=== PATIENT | female | born 1950 | race Caucasian/White ===

== ENCOUNTER → 2017-02-25 | Outpatient (CLI) | payer MEDICARE ==
[~2017-02-25] MED LIST: ALBUTEROL; CEPH500C PO; CHOL10007 PO; DICL75TA2 PO; DICLOFENAC; DULO60CA6 PO; FAMO20TA3 PO; FURO20TA4 PO; HYDR-3816 PO; LEVO112T55 PO; LEVO125T6 PO; LORA0.5T PO; MULT-1021 PO; NAPR-1033 PO; OXYC-197 PO; PANT40TA2 PO; PANT40TA3 PO; ROPI1TAB2 PO; RT-ALBUINH IH; VALS320T14 PO
--- NOTE | 2017-02-25 19:45 | Diagnostic Imaging Report ---
Bilateral screening mammogram 2D views with tomosynthesis The current study was also evaluated with a Computer Aided Detection (CAD) system. INDICATION: Screening. No current complaints stated on the questionnaire. COMPARISON: 10/14/2011. FINDINGS: The breasts are composed of heterogeneously dense parenchyma which may decrease mammographic sensitivity. No mass, architectural distortion, or suspicious cluster of calcifications. Allowing for technique and positional differences, no suspicious change is seen. IMPRESSION: No significant change. ACR BI-RADS Category 2: Benign findings. Result letter will be mailed to the patient. Note: At least 10% of breast cancer is not imaged by mammography. Dictated by: Dictated on workstation # [id number]
== END ==
LOC: RAD 09:47
PROVIDERS: ATTEND Nurse Practitioner Family
DX: Z12.31 Encounter for screening mammogram for malignant neoplasm of breast (principal)
CPT/HCPCS: 77067

== ENCOUNTER → 2018-04-16 | Outpatient (CLI) | payer MEDICARE ==
[~2018-04-16] MED LIST changes: +HYDR-34 PO; -HYDR-3816 PO; -OXYC-197 PO; +OXYC1TAB87 PO; -VALS320T14 PO; +VALS320T15 PO
--- NOTE | 2018-04-16 13:33 | Diagnostic Imaging Report ---
Exam: Ultrasound abdomen limited. Date: April 16, 2018. Indication: 68-year-old female, abdominal wall mass. Comparison: None. Findings: Targeted ultrasound was performed in the area of focal patient concern. There is no sonographically demonstrated mass or fluid collection. There is no convincing evidence of hernia. Impression: 1. No sonographically demonstrated mass or fluid collection. 2. No convincing evidence of a definite hernia. 3. If there is persistent concern for a truly clinically palpable mass, CT abdomen and pelvis with and without contrast would be recommended for further assessment. Dictated by: Dictated on workstation # [id number]
== END ==
LOC: RAD 10:05
PROVIDERS: ATTEND Internal Medicine
DX: R22.2 Localized swelling, mass and lump, trunk (principal)
CPT/HCPCS: 76705

== ENCOUNTER → 2020-03-14 | Outpatient (CLI) | payer MEDICARE ==
[~2020-03-14] MED LIST changes: -PANT40TA3 PO; +PANT40TA52 PO; +ROPI1TAB PO; -ROPI1TAB2 PO
--- NOTE | 2020-03-14 12:57 | Diagnostic Imaging Report ---
INDICATION: Routine screening. COMPARISON: 02/25/2017 and 10/14/2011. TECHNIQUE: 2D and 3D bilateral screening mammography was performed with CAD. FINDINGS: Both breasts are heterogeneously dense, limiting the sensitivity of mammography. The parenchymal pattern is stable. No dominant mass or malignant appearing microcalcifications are seen. There are benign calcifications lesions bilaterally. The axillae are unremarkable. IMPRESSION: No mammographic features suspicious for malignancy are identified. ACR BI-RADS Category 2: Benign findings. Result letter will be mailed to the patient. Note: At least 10% of breast cancer is not imaged by mammography. Dictated by: Dictated on workstation # [id number]
== END ==
LOC: RAD 11:08
PROVIDERS: ATTEND Internal Medicine
DX: Z12.31 Encounter for screening mammogram for malignant neoplasm of breast (principal)
CPT/HCPCS: 77063; 77067

== ENCOUNTER 2021-08-19 10:30 | Inpatient (IN) | payer MEDICARE ==
[~2021-08-19] VITALS: Ht 157.5 cm; Wt 119.0 kg
[~2021-08-19 10:30] MED LIST changes: -DULO60CA6 PO; +DULO60CA7 PO
[2021-08-19] MEDS ORDERED: morphine INJ 10 MG/ML 1ML (SYR OR VIAL) IVP STA (10:39)
--- NOTE | 2021-08-19 10:43 | ED Lower Extremity ---
General Chief Complaint: Lower Extremity Stated Complaint: FALL Source: patient, EMS Exam Limitations: no limitations History of Present Illness Date Seen by Provider: Aug 19, 2021 Time Seen by Provider: 10:41 Initial Comments To ER with c/o right leg pain after a fall. She had a right total knee replacement on 08/12/[address] go at [facility] in [place]. She was released on 08/15/2021. Today while getting up to use the bathroom she was using her walker and when she turned she somehow fell, she is not sure how. She landed on the right side and complains of some right hip right thigh right knee right lower leg and right ankle pain. She did not hit her head. Her pain has been fairly well controlled until this happened. EMS gave 4 mg of morphine and 100 mcg of fentanyl and she is still screaming on arrival. Onset: just prior to arrival Severity: moderate, severe Pain/Injury Location: right leg Method of Injury: fell Modifying Factors: Worse With Movement Allergies and Home Medications Allergies Coded Allergies: Tetracyclines (Verified Allergy, Unknown, high doses cause stomach pain, 04/16/16) pregabalin (Verified Allergy, Unknown, 04/16/16) Patient Home Medication List Home Medication List Reviewed: Yes Albuterol Sulfate (Proventil Hfa) 6.7 Gm Hfa.aer.ad, 2 PUFF IH Q4H PRN for SHORTNESS OF BREATH, (Reported) Entered as Reported by: YARELIS PINTO on 04/16/16 1247 Cephalexin (Cephalexin) 500 Mg Capsule, 1 CAP PO TID Prescribed by: JOHNSNO FUNES on 05/02/16 1748 Cholecalciferol (Vitamin D3) (Vitamin D3) 1,000 Unit Capsule, 2,000 UNIT PO BALTA LY, (Reported) Entered as Reported by: YARELIS PINTO on 04/16/16 1247 Diclofenac Sodium (Diclofenac Sodium) 75 Mg Tablet., 75 MG PO BID, (Reported) Entered as Reported by: YARELIS PINTO on 04/16/16 1247 Duloxetine HCl (Cymbalta) 60 Mg Capsule.dr, 60 MG PO BID, (Reported) Entered as Reported by: MAC ZAMUDIO on 10/09/15 1130 Furosemide (Furosemide) 20 Mg Tablet, 20 MG PO DAILY, (Reported) Entered as Reported by: MAC ZAMUDIO on 10/09/15 1130 Hydrocodone Bit/Acetaminophen (Lortab 7.5 Mg Tablet) 1 Each Tablet, 1 EACH PO BID PRN for PAIN, (Reported) Entered as Reported by: YARELIS PINTO on 04/16/16 1247 Levothyroxine Sodium (Levothyroxine Sodium) 125 Mcg Tablet, 125 MCG PO DAILY, (Reported) Entered as Reported by: YARELIS PINTO on 04/16/16 1247 Lorazepam (Lorazepam) 0.5 Mg Tablet, 0.5 MG PO BID PRN for ANXIETY, (Reported) Entered as Reported by: YARELIS PINTO on 04/16/16 1247 Multivits-Min/Iron/FA/Lutein (Centrum Silver Women Tablet) 1 Each Tablet, 1 EACH PO DAILY, (Reported) Entered as Reported by: YARELIS PINTO on 04/16/16 1247 Naproxen Sodium (Naproxen Sodium) 220 Mg Tablet, 220 MG PO BID, (Reported) Entered as Reported by: YARELIS PINTO on 04/16/16 1247 Oxycodone HCl/Acetaminophen (Percocet 5-325 mg Tablet) 1 Each Tablet, 1-2 EACH PO Q6H PRN for PAIN Prescribed by: TASHI ORTEGA on 05/02/16 1900 Pantoprazole Sodium (Pantoprazole Sodium) 40 Mg Tablet.dr, 40 MG PO DAILY, (Reported) Entered as Reported by: YARELIS PINTO on 04/16/16 1247 Ropinirole HCl (Ropinirole HCl) 1 Mg Tablet, 1-2 MG PO BID, (Reported) Entered as Reported by: YARELIS PINTO on 04/16/16 1247 Valsartan (Valsartan) 320 Mg Tablet, 160 MG PO DAILY, (Reported) Entered as Reported by: MAC ZAMUDIO on 10/09/15 1130 Review of Systems Constitutional: see HPI EENTM: see HPI Respiratory: no symptoms reported Cardiovascular: no symptoms reported Genitourinary: no symptoms reported Musculoskeletal: see HPI, joint pain Skin: no symptoms reported Psychiatric/Neurological: No Symptoms Reported Past Reuvczk-Gmfwas-Zybivx Hx Seasonal Allergies Seasonal Allergies: Yes Past Medical History Appendectomy, Hysterectomy, Thyroidectomy Asthma Hypertension [employer]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 7.0oz. 121.494418au; 45.9 BMI Method: General Appearance: WD/WN, no apparent distress HEENT: PERRL/EOMI, normal ENT inspection, other (Dry mucous membranes) Neck: non-tender, full range of motion Respiratory: no respiratory distress, no accessory muscle use Gastrointestinal: normal bowel sounds, non tender Hips: left hip non-tender, left hip normal inspection, left hip normal range of motion; right hip pain, right hip soft tissue tenderness Legs: left leg non-tender, left leg normal inspection, left leg normal range of motion; right leg ecchymosis, right leg pain, right leg soft tissue tenderness, right leg swelling, right leg other (Right knee incision is covered with a dressing. There is no erythema or saturation of the dressing with blood.) Knees: right knee ecchymosis, right knee pain, right knee soft tissue tenderness, right knee swelling Ankles: bilateral ankle non-tender, bilateral ankle normal inspection, bilateral ankle normal range of motion Feet: bilateral foot non-tender, bilateral foot normal inspection, bilateral foot normal range of motion, bilateral foot other (Bilateral feet pink warm and dry) Neurologic/Tendon: normal sensation, normal motor functions Neurologic/Psychiatric: alert, normal mood/affect, oriented x 3 Skin: normal color, warm/dry Procedures/Interventions Lumen: triple Central Line Procedure: betadine prep, sterile drapes applied, sterile dressing applied Position: internal jugular (R) Anesthesia: local Volume Anesthetic (ccs): 4 Complications: none Post Position: sutured, good blood return, position confirmed w/ CXR Progress/Results/Core Measures Results/Orders Lab Results Laboratory Tests Test 08/19/21 11:05 08/19/21 12:18 08/19/21 12:27 Range/Units White Blood Count 16.1 H 4.3-11.0 10^3/uL Red Blood Count 2.92 L 3.80-5.11 10^6/uL Hemoglobin 9.1 L 11.5-16.0 g/dL Hematocrit 28 L 35-52 % Mean Corpuscular Volume 96 80-99 fL Mean Corpuscular Hemoglobin 31 25-34 pg Mean Corpuscular Hemoglobin Concent 33 32-36 g/dL Red Cell Distribution Width 12.6 10.0-14.5 % Platelet Count 533 H 130-400 10^3/uL Mean Platelet Volume 10.3 9.0-12.2 fL Immature Granulocyte % (Auto) 2 % Neutrophils (%) (Auto) 70 42-75 % Lymphocytes (%) (Auto) 14 12-44 % Monocytes (%) (Auto) 11 0-12 % Eosinophils (%) (Auto) 3 0-10 % Basophils (%) (Auto) 1 0-10 % Neutrophils # (Auto) 11.2 H 1.8-7.8 10^3/uL Lymphocytes # (Auto) 2.3 1.0-4.0 10^3/uL Monocytes # (Auto) 1.8 H 0.0-1.0 10^3/uL Eosinophils # (Auto) 0.4 H 0.0-0.3 10^3/uL Basophils # (Auto) 0.1 0.0-0.1 10^3/uL Immature Granulocyte # (Auto) 0.3 H 0.0-0.1 10^3/uL Neutrophils % (Manual) 69 % Lymphocytes % (Manual) 19 % Monocytes % (Manual) 7 % Eosinophils % (Manual) 5 % Blood Morphology Comment NORMAL Prothrombin Time 15.2 H 12.2-14.7 SEC INR Comment 1.2 0.8-1.4 Sodium Level 133 L 135-145 MMOL/L Potassium Level 4.4 3.6-5.0 MMOL/L Chloride Level 98 98-107 MMOL/L Carbon Dioxide Level 23 21-32 MMOL/L Anion Gap 12 5-14 MMOL/L Blood Urea Nitrogen 17 7-18 MG/DL Creatinine 1.07 0.60-1.30 MG/DL Estimat Glomerular Filtration Rate 56 BUN/Creatinine Ratio 16 Glucose Level 150 H 70-105 MG/DL Calcium Level 8.8 8.5-10.1 MG/DL Corrected Calcium 9.4 8.5-10.1 MG/DL Total Bilirubin 0.8 0.1-1.0 MG/DL Aspartate Amino Transf (AST/SGOT) 15 5-34 U/L Alanine Aminotransferase (ALT/SGPT) 14 0-55 U/L Alkaline Phosphatase 101 40-136 U/L Total Protein 6.0 L 6.4-8.2 GM/DL Albumin 3.2 3.2-4.5 GM/DL Procalcitonin 0.05 <0.10 NG/ML Urine Color YELLOW Urine Clarity CLEAR Urine pH 5.5 5-9 Urine Specific [place] >=1.030 1.016-1.022 Urine Protein TRACE H NEGATIVE Urine Glucose (UA) NEGATIVE NEGATIVE Urine Ketones NEGATIVE NEGATIVE Urine Nitrite POSITIVE H NEGATIVE Urine Bilirubin 1+ H NEGATIVE Urine Urobilinogen 2.0 < = 1.0 MG/DL Urine Leukocyte Esterase TRACE H NEGATIVE Urine RBC (Auto) NEGATIVE NEGATIVE Urine RBC NONE /HPF Urine WBC 5-10 H /HPF Urine Squamous Epithelial Cells 2-5 /HPF Urine Renal Epithelial Cells NONE /HPF Urine Crystals NONE /LPF Urine Bacteria LARGE H /HPF Urine Casts NONE /LPF Urine Mucus NEGATIVE /LPF Urine Culture Indicated YES Lactic Acid Level 1.42 0.50-2.00 MMOL/L My Orders Orders - ALEXANDER CRAWFORD APRN Morphine Injection (Morphine Injection (08/19/21 10:39) Cbc With Automated Diff (08/19/21 10:39) Comprehensive Metabolic Panel (08/19/21 10:39) Protime With Inr (08/19/21 10:39) Sutton Cath (08/19/21 10:39) Lactated Ringers (Lr 1000 Ml Iv Solution (08/19/21 10:45) Pelvis With Right Hip 2-3views (08/19/21 10:39) Knee, Right, 3 Views (08/19/21 10:39) Ankle, Right, 3 Views (08/19/21 10:39) Ua Culture If Indicated (08/19/21 10:53) Ketamine Syringe (Ketamine Syringe) (08/19/21 11:15) Ns Iv 1000 Ml (Sodium Chloride 0.9%) (08/19/21 11:15) Manual Differential (08/19/21 11:05) Blood Culture (08/19/21 12:17) Lactic Acid Analyzer (08/19/21 12:17) Procalcitonin (Pct) (08/19/21 12:17) Lactated Ringers (Lr 1000 Ml Iv Solution (08/19/21 12:32) Urine Culture (08/19/21 12:18) Norepinephrine 8 Mg/250 Ml (Norepinephri (08/19/21 12:47) Chest 1 View, Ap/Pa Only (08/19/21 13:06) Cefepime Injection (Maxipime Injection) (08/19/21 13:30) Ed Admission (Communication) (08/19/21 13:24) Medications Given in ED Current Medications Medications Dose Ordered Sig/Anita Route Start Time Stop Time Status Last Admin Dose Admin Lactated Ringer's 1,000 ml @ ud STK-MED ONCE IV 08/19/21 12:32 08/19/21 12:34 DC 08/19/21 12:25 250 MLS/HR Norepinephrine Bitartrate 250 ml @ ud STK-MED ONCE IV 08/19/21 12:47 08/19/21 12:49 DC 08/19/21 13:18 20.4 MLS/HR Vital Signs/I&O 08/19/21 08/19/21 10:30 13:18 Temp 36.0 Pulse 100 91 Resp 18 B/P (MAP) 94/71 (79) 85/67 Pulse Ox 93 O2 Delivery Room Air Departure Communication (Admissions) 1116-called to room by nurse with reports of blood pressure at 65 over 40s. Heart rate mid to upper 90s. She has consistently been below 100 systolic but pressure dropped after the second dose of morphine which was given here. She does have very dry mucous membranes, Sutton placed and there was a scant amount of urine in the tubing but nothing in the bag. She states she has not been drinking much this morning. She does appear dry. Second IV was established in the left external jugular by me. Second liter of IV fluids infusing as a bolus currently. Blood pressure at this time is up to 83/49 heart rate 85. 1220-BP at 96/56, HR 90 after 2L IVF. Still minimal urine in sutton tubing, nothing in sutton bag. No fracture seen. Will add blood cultures, lactic acid, procal but would suspect her hypotension is volume depletion related. 1236-blood pressure was again down to the 70s systolic. Third liter of IV fluids, lactated Ringer's, initiated 250 mils an hour. As mentioned still minimal urine output. Oxygen is 100% on 2 L. Heart rate 96. At this moment blood pressure 91/59. states that her blood pressure was low while at [facility] for her surgery last week running at about 100/50 on average. 1316-blood pressure got down again to 60s systolic. Went ahead and placed a right internal jugular central line under ultrasound guidance sterile technique. X-ray to confirm placement. Levophed to be started at 0.1 refugio per kilo per minute. Empirically start cefepime for UTI. Admit to ICU Dr. Ely. Impression Primary Impression: Hypotension Additional Impressions: Right leg pain UTI (urinary tract infection) Disposition: ADMITTED INPATIENT Condition: Stable Admissions Decision to Admit Reason: Admit from ER (General) Decision to Admit/Date: Aug 19, 2021 Time/Decision to Admit Time: 12:21 Departure-Patient Inst. Referrals: MATIAS SERRANO MD (PCP/Family) Primary Care Physician ALEXANDER CRAWFORD APRN Aug 19, 2021 10:43
[2021-08-19] MEDS ORDERED: LACTATED RINGERS 1,000 ML IV SCH (10:45)
[2021-08-19 11:14] LABS: BASOPHILS # (AUTO) 0.1 10^3/uL (0.0-0.1); BASOPHILS % (AUTO) 1 % (0-10); EOSINOPHILS # (AUTO) 0.4 10^3/uL (0.0-0.3); EOSINOPHILS % (AUTO) 3 % (0-10); HEMATOCRIT 28 % (35-52); HEMOGLOBIN 9.1 g/dL (11.5-16.0); LYMPHOCYTES # (AUTO) 2.3 10^3/uL (1.0-4.0); LYMPHOCYTES % (AUTO) 14 % (12-44); MEAN CORPUSCULAR HEMOGLOBIN 31 pg (25-34); MEAN CORPUSCULAR HGB CONC 33 g/dL (32-36); MEAN CORPUSCULAR VOLUME 96 fL (80-99); MEAN PLATELET VOLUME 10.3 fL (9.0-12.2); MONOCYTES # (AUTO) 1.8 10^3/uL (0.0-1.0); MONOCYTES % (AUTO) 11 % (0-12); NEUTROPHILS # (AUTO) 11.2 10^3/uL (1.8-7.8); NEUTROPHILS % (AUTO) 70 % (42-75); PLATELET COUNT 533 10^3/uL (130-400); WHITE BLOOD COUNT 16.1 10^3/uL (4.3-11.0)
[2021-08-19] MEDS ORDERED: NS IV 1000 ML 1,000 ML IV SCH ×3 (11:15→17:00)
[2021-08-19] MEDS ORDERED: KETAMINE 50 MG/5 ML SYRINGE IV ONE (11:15)
[2021-08-19 11:31] LABS: ALBUMIN 3.2 GM/DL (3.2-4.5); POTASSIUM 4.4 MMOL/L (3.6-5.0)
[2021-08-19 11:32] LABS: CALCIUM 8.8 MG/DL (8.5-10.1)
[2021-08-19 11:33] LABS: INR 1.2 (0.8-1.4); PROTHROMBIN TIME PATIENT 15.2 SEC (12.2-14.7)
[2021-08-19 11:35] LABS: BILIRUBIN,TOTAL 0.8 MG/DL (0.1-1.0)
[2021-08-19 11:37] LABS: CREATININE SERUM 1.07 MG/DL (0.60-1.30)
[2021-08-19 12:03] LABS: EOSINOPHILS % (MANUAL) 5 %; LYMPHOCYTES % (MANUAL) 19 %; MONOCYTES % (MANUAL) 7 %; NEUTROPHILS % (MANUAL) 69 %
[2021-08-19 12:04] LABS: RBC MORPH NORMAL
--- NOTE | 2021-08-19 12:04 | Diagnostic Imaging Report ---
INDICATION: Right ankle pain, swelling and fall 3 views of the right ankle demonstrate soft tissue swelling without evidence of fracture or dislocation. No foreign body seen. IMPRESSION: No fracture identified. Dictated by: Dictated on workstation # [id number]
--- NOTE | 2021-08-19 12:07 | Diagnostic Imaging Report ---
INDICATION: Right hip pain FINDINGS: Single view the pelvis 2 views right hip demonstrate degenerative joint disease bilaterally. There is no fracture or dislocation. No osseous lesion. IMPRESSION: Degenerative joint disease. Dictated by: Dictated on workstation # [id number]
--- NOTE | 2021-08-19 12:09 | Diagnostic Imaging Report ---
INDICATION: Right knee arthroplasty. FINDINGS: Three views of the right knee demonstrate well-seated arthroplasty without fracture or dislocation. No unexpected radiopaque foreign body. IMPRESSION: Stable-appearing right knee are arthroplasty. Dictated by: Dictated on workstation # [id number]
[2021-08-19 12:24] LABS: BILIRUBIN,URINE 1+ (NEGATIVE); CLARITY,URINE CLEAR; COLOR,URINE YELLOW; GLUCOSE, URINE (UA) NEGATIVE (NEGATIVE); KETONES,URINE NEGATIVE (NEGATIVE); LEUKOCYTE ESTERASE ,URINE TRACE (NEGATIVE); NITRITE,URINE POSITIVE (NEGATIVE); PH,URINE 5.5 (5-9); PROTEIN,URINE TRACE (NEGATIVE)
[2021-08-19] MEDS ORDERED: LACTATED RINGERS 1,000 ML IV ONE (12:32)
[2021-08-19 12:45] LABS: BACTERIA,URINE LARGE /HPF
[2021-08-19] MEDS: NOREPINEPHRINE 8 MG/250 ML 250 ML IV ONE ×2 (12:56→13:18)
[2021-08-19] MEDS ORDERED: CEFEPIME INJECTION 1,000 MG in NS (IVPB) 50 ML IV ONE (13:30)
[2021-08-19] MEDS ORDERED: MILK OF MAGNESIA 400 MG/5 ML 30 ML UDC PO PRN (13:45)
[2021-08-19] MEDS ORDERED: polyethylene glycoL POWDER 17 GM (MIRALAX) PACK PO PRN (13:45)
[2021-08-19] MEDS ORDERED: ONDANSETRON 4 MG/2 ML (SDV) Z0FRAN IV PRN (13:45)
[2021-08-19] MEDS ORDERED: ONDANSETRON 4 MG (ZOFRAN) ORAL DISSOLVE TAB PO PRN (13:45)
[2021-08-19] MEDS ORDERED: LACTULOSE SYRUP 10GM/15ML (ENULOSE) 30ML UDC PO PRN (13:45)
[2021-08-19] MEDS ORDERED: ANTACID SUSP 30 ML UDC (MYLANTA) PO PRN (13:45)
[2021-08-19] MEDS ORDERED: ENOXAPARIN 40 MG/0.4 ML (LOVENOX) SYR SC SCH (13:45)
[2021-08-19] MEDS ORDERED: diphenhydrAMINE 25 MG TAB (BENADRYL) PO PRN (13:45)
[2021-08-19] MEDS ORDERED: diphenhydrAMINE 50 MG/ML INJ (BENADRYL) IVP PRN (13:45)
[2021-08-19] MEDS ORDERED: MELATONIN 3 MG TABLET PO PRN (13:45)
[2021-08-19] MEDS ORDERED: BISACODYL 10 MG SUPP (DULCOLAX) PR PRN (13:45)
[2021-08-19] MEDS ORDERED: NALOXONE 0.4 MG/ML 1 ML (NARCAN) VIAL IV PRN (13:45)
[2021-08-19] MEDS ORDERED: CALCIUM CARBONATE 500 MG (TUMS) TAB.CHEW PO PRN (13:45)
--- NOTE | 2021-08-19 14:03 | Diagnostic Imaging Report ---
CHEST 1 VIEW, AP/PA ONLY INDICATION: Central line placement. COMPARISON: None available. FINDINGS: No focal airspace disease in the visualized lungs. Please note that the posterior lower lobes are poorly evaluated by portable radiography. No pleural effusion or pneumothorax. Normal cardiomediastinal silhouette. Right IJ central venous line has tip terminating in the region of the upper SVC. IMPRESSION: 1. Right IJ central venous line has tip terminating in the upper SVC. 2. No pneumothorax. Dictated by: Dictated on workstation # [id number]
[2021-08-19 14:05] VITALS: BP 85/67
--- NOTE | 2021-08-19 14:06 | History & Physical-Hospitalist ---
TAWNY THURSTON 08/19/21 1406: History of Present Illness HPI/Chief Complaint CC: Fall resulting in R leg pain HPI: The patient is a 71 YO female, status post R total knee replacement on 08/[address] Kebede at [facility] in [place] with DC on 08/15/21 who presented to the ED for R leg pain after a fall. PT reports that today when she was getting up to use the bathroom, using her walker, she turned and fell. PT reports she landed on the right side of her body. She denies hitting her head, and did not lose consciousness. EMS administered 4mg of morphine and 100mcg of fentanyl, and transported her to the ED. She received another dose of morphine in the ED. When I saw the patient today she was lethargic and had difficulty answering my questions. She was complaining of burning knee pain in the R leg. Date Seen 08/19/21 Time Seen by a Provider: 13:45 Attending Physician Estela Fernandez DO PCP Ken Blanc MD Referring Physician Date of Admission Aug 19, 2021 at 13:25 Home Medications & Allergies Home Medications Reviewed patient Home Medication Reconciliation performed by pharmacy medication reconciliations alarm installation technician and/or nursing. Patients Allergies have been reviewed. Allergies Allergies Coded Allergies Tetracyclines (Verified Allergy, Unknown, high doses cause stomach pain, 04/16/16) pregabalin (Verified Allergy, Unknown, 04/16/16) Past Gzqzevm-Newenv-Pduffj Hx Patient Social History Tobacco Use?: No Substance use?: No Alcohol Use?: No Immunizations Up To Date Date of Influenza Vaccine: Apr 14, 2016 First/Initial COVID19 Vaccinat: 2020 Second COVID19 Vaccination [place]: 2020 Date of Pneumonia Vaccine: May 10, 2014 Seasonal Allergies Seasonal Allergies: Yes Current Status status: No Advance Directives: No Communicates: Verbally Primary Language: Swedish Preferred Spoken Language: Swedish Is interpretation needed?: No Implanted or Applied Medical D: Orthopedic hardware Past Medical History Surgeries: Appendectomy, Hysterectomy, Thyroidectomy Asthma Hypertension [employer] History: Hysterectomy Anxiety Review of Systems Constitutional: fever (reports having a fever in the "hospital") Other The patient had great difficulty sustaining concentration to answer my ROS questions. Physical Exam Physical Exam Vital Signs Vital Signs - First Documented 08/19/21 08/19/21 10:30 15:56 Temp 36.0 Pulse 100 Resp 18 B/P (MAP) 94/71 (79) Pulse Ox 93 O2 Delivery Room Air O2 Flow Rate 3.00 Capillary Refill : Less Than 3 Seconds Height, Weight, BMI Height: 5'4.00" Weight: 267lbs. 7.0oz. 121.499730kd; 44.00 BMI Method: General Appearance: Mild Distress, Obese, Other (lethargic ) Eyes: Bilateral Eye Normal Inspection, Bilateral Eye PERRL, Bilateral Eye EOMI HEENT: PERRL/EOMI, Other (dry mucous membranes ) Neck: Full Range of Motion, Normal Inspection, Other (IJ central line in place on R side. ) Respiratory: Chest Non Tender, Lungs Clear, Normal Breath Sounds, No Accessory Muscle Use, No Respiratory Distress Cardiovascular: Regular Rate, Rhythm, No Gallop, No JVD, No Murmur, Tachycardia, Other (weak peripheral pulses ) Gastrointestinal: Normal Bowel Sounds, No Organomegaly, No Pulsatile Mass, Non Tender, Soft Extremity: Normal Inspection, Non Tender, No Calf Tenderness, No Pedal Edema, Other (R knee total knee replacement incision dressed and clean. ) Neurologic/Psychiatric: Oriented x3, No Motor/Sensory Deficits, Other (lethargic ) Skin: Normal Color, Warm/Dry Results Results/Procedures Labs Laboratory Tests 08/19/21 11:05 Patient resulted labs reviewed. Assessment/Plan Admission Diagnosis severe hypotension with source of infection Assessment and Plan Assessment: Severe hypotension UTI Leukocytosis Hyponatremia Chronic Anemia Fall Status post R total knee replacement Obesity DVT prophylaxis Plan: Severe hypotension UTI Leukocytosis Hyponatremia Chronic Anemia Fall Status post R total knee replacement Obesity PT admitted to the ICU for severe hypotension requiring IVF and Levophed drip for blood pressure control. Monitor for suspicious sepsis. Continue on IV cefepime therapy. Waiting on blood cultures. Supportive care and pain management at this time. Possible B12 or folate needed. Electrolyte replacement as indicated. DVT prophylaxis Lovenox injections. ESTELA FERNANDEZ DO 08/20/21 0552: History of Present Illness HPI/Chief Complaint Chief complaint: Fall with right leg pain History of present illness: This is a 71-year-old white female patient of [facility] who is status post right knee replacement by Dr. Kebede at [facility] on 08/12/2021 and discharged 08/15/2021 who presented to the ER after a fall with right leg pain. Patient was lethargic after given pain medication so no history obtainable. She was assessed to be hypotensive requiring central line placement and aggressive IV fluid resuscitation along with pressor therapy. White count was 18,000 but no evidence of sepsis as source of hypotension. UTI noted which was mild so cefepime was placed. Hemoglobin was 9 we will monitor closely. Source: RN/MD, old records Exam Limitations: clinical condition Past Bpqjhoy-Izamie-Hjsrud Hx Patient Social History Marrital Status: Employed/Student: retired Smoking Status: Unknown if Ever Smoked Smokeless Tobacco Frequency: Unknown if Ever Used Past Medical History Surgeries: Orthopedic High Cholesterol, Hypertension Fibromyalgia Review of Systems ROS-Unable to Obtain: Critical illness Constitutional: see HPI, malaise, weakness Physical Exam Physical Exam General Appearance: Chronically ill (ccccccccccccccccccccccccccccccccccccccccccccccccc cccccccccccccccccccccccccccccccccccccccccccccccccccxxc), Mild Distress, Obese, Other (lethargic ) Eyes: Right Eye Normal Inspection, Right Eye PERRL, Right Eye EOMI, Right Eye Abnormal EOM, Right Eye Abnormal Pupil, Right Eye Conjunctivae Pale, Right Eye Lid Inflammation, Right Eye Photophobia, Right Eye Scleral Icterus, Right Eye Other HEENT: PERRL/EOMI, Normal ENT Inspection, Pharynx Normal, Moist Mucous Membranes, Other (dry mucous membranes ) Neck: Full Range of Motion, Normal Inspection, Non Tender Respiratory: Chest Non Tender, Lungs Clear, Normal Breath Sounds, No Accessory Muscle Use, No Respiratory Distress, Decreased Breath Sounds Cardiovascular: No Edema, No Gallop, No JVD, No Murmur, Normal Peripheral Pulses, Tachycardia Gastrointestinal: Normal Bowel Sounds, No Organomegaly, No Pulsatile Mass, Non Tender, Soft Back: Normal Inspection, No CVA Tenderness, No Vertebral Tenderness Extremity: Normal Capillary Refill, Normal Inspection, Normal Range of Motion, Non Tender, No Calf Tenderness, No Pedal Edema Neurologic/Psychiatric: Other (lethargic ) Skin: Normal Color, Warm/Dry Lymphatic: No Adenopathy Assessment/Plan Admission Diagnosis Assessment: Hypovolemic shock Recent right total knee replacement by Dr. Kebede at [facility] on 08/12/2021 and discharged 08/15/2021 Elevated D-dimer but no hypoxia and bilateral lower extremity ultrasounds negative for DVT UTI without signs of sepsis Anemia postop acute blood loss Fibromyalgia Chronic pain History of hypertension took blood pressure medications today Plan: Aggressive IV fluid resuscitation Levophed Monitor for compartment syndrome right leg We will reach out to Dr. Kebede tomorrow Appreciate Dr. Montoya Appreciate Dr. Moore Admission Status: Inpatient Order (span 2 midnights) Reason for Inpatient Admission: Hypovolemic shock Supervisory-Addendum Brief Verification & Attestation Participated in pt care: history, MDM, physical Personally performed: exam, history, MDM, supervision of care Care discussed with: Medical Student Procedures: n/a Results interpretation: Verified all documentation Verification and Attestation of Medical Student E/M Service A medical student performed and documented this service in my presence. I revie wed and verified all information documented by the medical student and made modifications to such information, when appropriate. I personally performed the physical exam and medical decision making. Estela Fernandez, Aug 20, 2021,05:51 TAWNY THURSTON Aug 19, 2021 14:06 ESTELA FERNANDEZ DO Aug 20, 2021 05:52
[2021-08-19] MEDS ORDERED: RT-ALBUTEROL SULF 2.5 MG/3 ML PRE-MIX VIAL INH PRN (14:15)
--- NOTE | 2021-08-19 15:06 | Diagnostic Imaging Report ---
PROCEDURE: US Venous Lower Ext Tyrone. TECHNIQUE: Multiple real-time grayscale images were obtained over the lower extremities in various projections, bilaterally. Additional duplex Doppler and color Doppler images were also obtained. INDICATION: Leg pain. FINDINGS: There is no evidence of right or left lower extremity DVT. Both lower extremity deep venous systems demonstrate normal compressibility with normal response to augmentation and Valsalva. No fluid collection or mass is detected. IMPRESSION: No evidence of right or left lower extremity DVT. Dictated by: Dictated on workstation # [id number]
[2021-08-19] MEDS: NOREPINEPHRINE 8 MG/250 ML 250 ML IV SCH (15:39)
[2021-08-19 16:01] LABS: ABG BASE EXCESS -1.8 MMOL/L (-2.5-2.5); ABG OXYGEN SATURATION 99 % (94-100); ABG PCO2 39 MMHG (35-45); ABG PH 7.38 (7.37-7.43); ABG PO2 117 MMHG (79-93)
[2021-08-19 16:02] LABS: ALLENS TEST YES-POS; INSPIRED O2 3 L; PATIENT TEMP 36.3; VENTILATOR NO
[2021-08-19] MEDS: ENOXAPARIN 40 MG/0.4 ML (LOVENOX) SYR SC SCH ×2 (16:25→21:15)
[2021-08-19] MEDS: NS IV 1000 ML 1,000 ML IV SCH (16:25)
[2021-08-19] MEDS: inSUlin ASPART (NovoLOG) 1 UNIT/0.01 ML (CHARGE PER UNIT) SC SCH ×2 (16:25→20:33)
[2021-08-19 17:34] LABS: HEMATOCRIT 24 % (35-52); MEAN CORPUSCULAR HEMOGLOBIN 31 pg (25-34); MEAN CORPUSCULAR HGB CONC 33 g/dL (32-36); MEAN CORPUSCULAR VOLUME 95 fL (80-99); MEAN PLATELET VOLUME 9.7 fL (9.0-12.2); PLATELET COUNT 441 10^3/uL (130-400); WHITE BLOOD COUNT 13.8 10^3/uL (4.3-11.0)
[2021-08-19 17:45] LABS: POTASSIUM 4.8 MMOL/L (3.6-5.0)
[2021-08-19 17:46] LABS: CALCIUM 8.1 MG/DL (8.5-10.1)
[2021-08-19 17:50] LABS: CREATININE SERUM 1.04 MG/DL (0.60-1.30)
--- NOTE | 2021-08-19 17:55 | Tele-ICU Consult ---
History of Present Illness History of Present Illness Date Seen by Provider: Aug 19, 2021 Time Seen by Provider: 17:54 Date of Admission (Tele-ICU Physician , consultation) Available chart/ vitals / labs / Images reviewed H&P is from ER notes Patient's information available about PMH, Shx, Fhx allergy reviewed in EMR. ROS as per chart and RN report Now in ICU, hemodynamically stable ON LEVO Video assessment done using teleICU camera, rest of exam as per RN Discussed with RN. Consultants: Hospital course: (08/19) 71f admitted s/p fall at home after fall , hypotensive A/P Shock - etiology is notr clear - received 4 L NS and on levo - possible shock with UTI , but PCT low - check HB - ? RP bleed -? PE - US done in ER - neg for DVT - no recent h/o steroid use =cont hydration =check CVP = check HB =check troponin S/p fall using her walker, did not lose consciousness - ? mechanical fall vs being hypotensive at home resulting in fall ? - pain control - xrays done UTI = cx done - IV cefepime Somnolence - ABG acceptable - received morphine IV and po opioids - monitor s/p R total knee replacement on 08/12- DC on 08/15/21 Anemia - ? chronic - follow Lines : r IJ 08/19 (Central Line Necessity Reviewed) Gordon: 08/19 OG: Nutrition: Analgesia: Anxiety/ delirium VTE Prophylaxis: nathalia 40 Stress Ulcer Prophylaxis: po Plans in collaboration with bedside consultants and IM MDs. Discussed with RN to reach out if any questions or concerns A total of 33 minutes of critical care time was devoted to this patient today, required to treat and/or prevent further deterioration of critical care condition ( as above) . Allergies and Home Medications Allergies Coded Allergies: Tetracyclines (Verified Allergy, Unknown, high doses cause stomach pain, 04/16/16) pregabalin (Verified Allergy, Unknown, 04/16/16) Home Medications Albuterol Sulfate 6.7 Gm Hfa.aer.ad, 2 PUFF IH Q4H PRN for SHORTNESS OF BREATH, (Reported) Cephalexin 500 Mg Capsule, 1 CAP PO TID Prescribed by: JOHNSON FUNES on 05/02/16 7626 Cholecalciferol (Vitamin D3) 1,000 Unit Capsule, 2,000 UNIT PO DAILY, (Reported) take 2 (1,000IU) tab Diclofenac Sodium 75 Mg Tablet.dr, 75 MG PO BID, (Reported) Duloxetine HCl 60 Mg Capsule.dr, 60 MG PO BID, (Reported) Furosemide 20 Mg Tablet, 20 MG PO DAILY, (Reported) Hydrocodone Bit/Acetaminophen 1 Each Tablet, 1 EACH PO BID PRN for PAIN, (Reported) Levothyroxine Sodium 125 Mcg Tablet, 125 MCG PO DAILY, (Reported) Lorazepam 0.5 Mg Tablet, 0.5 MG PO BID PRN for ANXIETY, (Reported) Multivits-Min/Iron/FA/Lutein 1 Each Tablet, 1 EACH PO DAILY, (Reported) Naproxen Sodium 220 Mg Tablet, 220 MG PO BID, (Reported) Oxycodone HCl/Acetaminophen 1 Each Tablet, 1-2 EACH PO Q6H PRN for PAIN Prescribed by: TASHI ORTEGA on 05/02/16 1900 Pantoprazole Sodium 40 Mg Tablet.dr, 40 MG PO DAILY, (Reported) Ropinirole HCl 1 Mg Tablet, 1-2 MG PO BID, (Reported) take 1 mg in am take 2 (1mg) tabs at HS Valsartan 320 Mg Tablet, 160 MG PO DAILY, (Reported) take 1/2 of 320mg tab Past Medical/Social/Family Hx Patient Social History Tobacco Use?: No Smoking Status: Never a Smoker Smokeless Tobacco Frequency: Never a User Use of E-Cig and/or Vaping dev: No Substance use?: No Alcohol Use?: No Pt stated abuse/neglect: No Immunizations Up To Date Influenza Vaccine Up-to-Date: Yes; Up-to-Date First/Initial COVID19 Vaccinat: 2020 Second COVID19 Vaccination [place]: 2020 Tetanus Booster (TDap): Unknown Date of Pneumonia Vaccine: May 10, 2014 Current Status status: No Advance Directives: No Communicates: Verbally Primary Language: Yoruba Preferred Spoken Language: Yoruba Is interpretation needed?: No Implanted or Applied Medical D: Orthopedic hardware Review of Systems Constitutional: see HPI Focused Exam Lactate Level 08/19/21 12:27: Lactic Acid Level 1.42 Height, Weight, BMI Height: 5'4.00" Weight: 267lbs. 7.0oz. 121.088090kl; 46.52 BMI Method: Exam Exam Patient acknowledged, consented, and participated in this virtual visit which was conducted using real time audio/video Vital Signs Date Time Temp Pulse Resp B/P (MAP) Pulse Ox O2 Delivery O2 Flow Rate FiO2 08/19/21 17:00 86 15 120/61 99 08/19/21 16:26 84 112/68 08/19/21 16:03 36.3 08/19/21 16:00 84 20 133/64 100 08/19/21 15:56 100 Nasal Cannula 3.00 08/19/21 15:30 84 23 101/63 100 08/19/21 15:25 36.8 08/19/21 15:25 78 08/19/21 14:57 89 20 96/80 100 Room Air 08/19/21 14:05 36.0 91 93 08/19/21 13:18 91 85/67 08/19/21 10:30 36.0 100 18 94/71 (79) 93 Room Air Height & Weight Height: 5'4.00" Weight: 267lbs. 7.0oz. 121.154385lk; 46.52 BMI Method: General Appearance: No Apparent Distress, Mild Distress, Obese, Other (lethargic ) HEENT: PERRL/EOMI, Other (dry mucous membranes ) Neck: Full Range of Motion, Normal Inspection, Other (IJ central line in place on R side. ) Respiratory: Chest Non Tender, Lungs Clear, Normal Breath Sounds, No Accessory Muscle Use, No Respiratory Distress Cardiovascular: Regular Rate, Rhythm, No Gallop, No JVD, No Murmur, Tachycardia, Other (weak peripheral pulses ) Capillary Refill: Less Than 3 Seconds Gastrointestinal: normal bowel sounds, non tender Extremity: Normal Inspection, Non Tender, No Calf Tenderness, No Pedal Edema, Other (R knee total knee replacement incision dressed and clean. ) Neurologic/Psychiatric: Oriented x3, No Motor/Sensory Deficits, Other (lethargic ) Skin: Normal Color, Warm/Dry Results Lab Laboratory Tests 08/19/21 11:05 08/19/21 17:25 Assessment/Plan Assessment/Plan SONYA CROWLEY MD Aug 19, 2021 17:55
--- NOTE | 2021-08-19 18:15 | Tele-ICU Progress Note ---
Progress Note labs reviewed - Hb drop is delutional - BMP wnl -CVP 11- 17 trop , ddimer pending weaning off levo Exam of RIGHT KNEE via camera with RN - seems more tender and larger - asked RN to call PCP - ? developing compartment syndrome ( at present time puslse are present and equal as per RN exam Focused Exam Lactate Level 08/19/21 12:27: Lactic Acid Level 1.42 Height, Weight, BMI Height: 5'4.00" Weight: 267lbs. 7.0oz. 121.592526ta; 46.52 BMI Method: SONYA KELLY MD Aug 19, 2021 18:15
--- NOTE | 2021-08-19 19:19 | Consultation - Surgery ---
History of Present Illness History of Present Illness Patient Consulted On(massimo/time) 08/19/21 19:11 Date Seen by Provider: Aug 19, 2021 Time Seen by Provider: 19:11 History of Present Illness Consult requested by Dr. Ely for right lower extremity rule out compartment syndrome. Patient is a 71 year old female who underwent right knee replacement 1 week ago. Went home 3 days ago having a hard time walking around. Fell today. Was found to be hypotensive. Having swelling around the right knee, which had recent replacement. Patient is able to move the right lower extremity. No numbness or tingling different than her postoperative care. Burning type pain. Has had a hard time with pain control postoperatively her feels this is due to her Fibromyalgia. Was hypotensive and had to have central line placed in ED. Had x rays of right lower extremity and pelvis not showing any fracture in hardware injury. Allergies and Home Medications Allergies Coded Allergies: Tetracyclines (Verified Allergy, Unknown, high doses cause stomach pain, 04/16/16) pregabalin (Verified Allergy, Unknown, 04/16/16) Patient Home Medication List Home Medication List Reviewed: Yes Albuterol Sulfate (Proventil Hfa) 6.7 Gm Hfa.aer.ad, 2 PUFF IH Q4H PRN for SHORTNESS OF BREATH, (Reported) Entered as Reported by: YARELIS PINTO on 04/16/16 1247 Cephalexin (Cephalexin) 500 Mg Capsule, 1 CAP PO TID Prescribed by: JOHNSON FUNES on 05/02/16 1748 Cholecalciferol (Vitamin D3) (Vitamin D3) 1,000 Unit Capsule, 2,000 UNIT PO DAILY, (Reported) Entered as Reported by: YARELIS PINTO on 04/16/16 1247 Diclofenac Sodium (Diclofenac Sodium) 75 Mg Tablet., 75 MG PO BID, (Reported) Entered as Reported by: YARELIS PINTO on 04/16/16 1247 Duloxetine HCl (Cymbalta) 60 Mg Capsule., 60 MG PO BID, (Reported) Entered as Reported by: MAC ZAMUDIO on 10/09/15 1130 Furosemide (Furosemide) 20 Mg Tablet, 20 MG PO DAILY, (Reported) Entered as Reported by: MAC ZAMUDIO on 10/09/15 1130 Hydrocodone Bit/Acetaminophen (Lortab 7.5 Mg Tablet) 1 Each Tablet, 1 EACH PO BID PRN for PAIN, (Reported) Entered as Reported by: YARELIS PINTO on 04/16/16 1247 Levothyroxine Sodium (Levothyroxine Sodium) 125 Mcg Tablet, 125 MCG PO DAILY, (Reported) Entered as Reported by: YARELIS PINTO on 04/16/16 1247 Lorazepam (Lorazepam) 0.5 Mg Tablet, 0.5 MG PO BID PRN for ANXIETY, (Reported) Entered as Reported by: YARELIS PINTO on 04/16/16 1247 Multivits-Min/Iron/FA/Lutein (Centrum Silver Women Tablet) 1 Each Tablet, 1 EACH PO DAILY, (Reported) Entered as Reported by: YARELIS PINTO on 04/16/16 1247 Naproxen Sodium (Naproxen Sodium) 220 Mg Tablet, 220 MG PO BID, (Reported) Entered as Reported by: YARELIS PINTO on 04/16/16 1247 Oxycodone HCl/Acetaminophen (Percocet 5-325 mg Tablet) 1 Each Tablet, 1-2 EACH PO Q6H PRN for PAIN Prescribed by: TASHI ORTEGA on 05/02/16 1900 Pantoprazole Sodium (Pantoprazole Sodium) 40 Mg Tablet.dr, 40 MG PO DAILY, (Reported) Entered as Reported by: YARELIS PINTO on 04/16/16 1247 Ropinirole HCl (Ropinirole HCl) 1 Mg Tablet, 1-2 MG PO BID, (Reported) Entered as Reported by: YARELIS PINTO on 04/16/16 1247 Valsartan (Valsartan) 320 Mg Tablet, 160 MG PO DAILY, (Reported) Entered as Reported by: MAC ZAMUDIO on 10/09/15 1130 Past Ccjdsqb-Iyvlhr-Esnpyg Hx Patient Social History Smoking Status: Never a Smoker Recent Hopitalizations: No Alcohol Use?: No Have you traveled recently?: No Immunizations Up To Date Date of Pneumonia Vaccine: May 10, 2014 Date of Influenza Vaccine: Apr 14, 2016 Seasonal Allergies Seasonal Allergies: Yes Surgeries Surgeries: Appendectomy, Hysterectomy, Thyroidectomy Respiratory Respiratory Disorders: Asthma Cardiovascular Cardiac Disorders: Hypertension Reproductive System ART PSYCHOTHERAPIST History: Hysterectomy Psychosocial Behavioral Health Disorders: Anxiety Reviewed Nursing Assessment Reviewed/Agree w Nursing PMH: Yes Family Medical History Significant Family History: No Pertinent Family Hx Review of Systems-General Constitutional: No fever; weakness EENTM: blurred vision, double vision Respiratory: cough, dyspnea on exertion Cardiovascular: No chest pain, No palpitations Gastrointestinal: No abdominal pain, No nausea, No vomiting Genitourinary: No decreased output, No discharge Musculoskeletal: No back pain; joint pain Skin: change in color; No change in hair/nails Psychiatric/Neurological: Denies Anxiety, Denies Depressed, Denies Emotional Problems All Other Systems Reviewed Negative Unless Noted: Yes (Negative excepted noted.) Physical Exam-General Problems Physical Exam Vital Signs Vital Signs - First Documented 08/19/21 08/19/21 10:30 15:56 Temp 36.0 Pulse 100 Resp 18 B/P (MAP) 94/71 (79) Pulse Ox 93 O2 Delivery Room Air O2 Flow Rate 3.00 Capillary Refill : Less Than 3 Seconds General Appearance: no apparent distress, obese HEENT: PERRL/EOMI, normal ENT inspection Neck: non-tender, supple Respiratory: chest non-tender, no respiratory distress, no accessory muscle use Cardiovascular: regular rate, rhythm, no JVD Gastrointestinal: non tender, soft Rectal: deferred Back: no CVA tenderness, no vertebral tenderness Extremities: No non-tender (right knee); swelling (around right knee length of incision, echymosis around right knee with swelling. mild tenderness but seems to be appropriate to me due to recent replacment.), other (palpable pulses bilateral lower extremity and equal.) Neurologic/Psychiatric: alert, normal mood/affect, oriented x 3 Skin: warm/dry, ecchymosis (right knee) Lymphatic: no adenopathy Data Review Labs Laboratory Tests 08/19/21 11:05: White Blood Count 16.1H, Red Blood Count 2.92L, Hemoglobin 9.1L, Hematocrit 28L, Mean Corpuscular Volume 96, Mean Corpuscular Hemoglobin 31, Mean Corpuscular Hemoglobin Concent 33, Red Cell Distribution Width 12.6, Platelet Count 533H, Mean Platelet Volume 10.3, Immature Granulocyte % (Auto) 2, Neutrophils (%) (Auto) 70, Lymphocytes (%) (Auto) 14, Monocytes (%) (Auto) 11, Eosinophils (%) (Auto) 3, Basophils (%) (Auto) 1, Neutrophils # (Auto) 11.2H, Lymphocytes # (Auto) 2.3, Monocytes # (Auto) 1.8H, Eosinophils # (Auto) 0.4H, Basophils # (Auto) 0.1, Immature Granulocyte # (Auto) 0.3H, Neutrophils % (Manual) 69, Lym phocytes % (Manual) 19, Monocytes % (Manual) 7, Eosinophils % (Manual) 5, Blood Morphology Comment NORMAL, Prothrombin Time 15.2H, INR Comment 1.2, Sodium Level 133L, Potassium Level 4.4, Chloride Level 98, Carbon Dioxide Level 23, Anion Gap 12, Blood Urea Nitrogen 17, Creatinine 1.07, Estimat Glomerular Filtration Rate 56, BUN/Creatinine Ratio 16, Glucose Level 150H, Calcium Level 8.8, Corrected Calcium 9.4, Total Bilirubin 0.8, Aspartate Amino Transf (AST/SGOT) 15, Alanine Aminotransferase (ALT/SGPT) 14, Alkaline Phosphatase 101, Total Protein 6.0L, Albumin 3.2, Procalcitonin 0.05 08/19/21 12:18: Urine Color YELLOW, Urine Clarity CLEAR, Urine pH 5.5, Urine Specific [place] >=1.030, Urine Protein TRACEH, Urine Glucose (UA) NEGATIVE, Urine Ketones NEGATIVE, Urine Nitrite POSITIVEH, Urine Bilirubin 1+H, Urine Urobilinogen 2.0, Urine Leukocyte Esterase TRACEH, Urine RBC (Auto) NEGATIVE, Urine RBC NONE, Urine WBC 5-10H, Urine Squamous Epithelial Cells 2-5, Urine Renal Epithelial Cells NONE, Urine Crystals NONE, Urine Bacteria LARGEH, Urine Casts NONE, Urine Mucus NEGATIVE, Urine Culture Indicated YES 08/19/21 12:27: Lactic Acid Level 1.42 08/19/21 15:48: Glucometer 117H 08/19/21 15:55: Blood Gas Puncture Site LT RAD, Blood Gas Patient Temperature 36.3, Arterial Blood pH 7.38, Arterial Blood Partial Pressure CO2 39, Arterial Blood Partial Pressure O2 117H, Arterial Blood HCO3 23, Arterial Blood Total CO2 24.0, Arterial Blood Oxygen Saturation 99, Arterial Blood Base Excess -1.8, Fabian Test YES-POS, Blood Gas Ventilator Setting NO, Blood Gas Inspired Oxygen 3 L 08/19/21 17:25: White Blood Count 13.8H, Red Blood Count 2.55L, Hemoglobin 8.0L, Hematocrit 24L, Mean Corpuscular Volume 95, Mean Corpuscular Hemoglobin 31, Mean Corpuscular Hemoglobin Concent 33, Red Cell Distribution Width 12.5, Platelet Count 441H, Mean Platelet Volume 9.7, Sodium Level 133L, Potassium Level 4.8, Chloride Level 102, Carbon Dioxide Level 22, Anion Gap 9, Blood Urea Nitrogen 19H, Creatinine 1.04, Estimat Glomerular Filtration Rate 58, BUN/Creatinine Ratio 18, Glucose Level 141H, Calcium Level 8.1L, Troponin I < 0.028 08/19/21 18:02: D-Dimer 1.55H Assessment/Plan Assessment/Plan Assessment/Plan Severe hypotension UTI Leukocytosis Hyponatremia Chronic Anemia Fall Status post R total knee replacement Obesity PT admitted to the ICU for severe hypotension requiring IVF and Levophed drip for blood pressure control. Monitor for suspicious sepsis. Continue on IV cefepime therapy. Blood cultures. Continue to monitor pulses which are palpable at this time of my evaluation. I do not believe there to be any compartment syndrome, the area swollen appears to be area of surgical intervention and may be related to postoperative changes. Will consult Dr. Moore for Orthopaedic input. Will have nursing continue to monitor/measure leg Pain control. Supportive care and pain management at this time. HEAVEN CONNER DO Aug 19, 2021 19:18
[2021-08-19] MEDS: DOCUSATE SODIUM 100 MG (COLACE) CAP PO SCH (20:46)
[2021-08-19] MEDS: SENNOSIDES 8.6 MG (SENOKOT) TAB PO SCH (20:46)
[2021-08-20] MEDS: NS IV 1000 ML 1,000 ML IV SCH ×3 (00:22→17:53)
[2021-08-20 04:32] LABS: BASOPHILS # (AUTO) 0.1 10^3/uL (0.0-0.1); BASOPHILS % (AUTO) 0 % (0-10); EOSINOPHILS # (AUTO) 0.3 10^3/uL (0.0-0.3); EOSINOPHILS % (AUTO) 3 % (0-10); HEMATOCRIT 21 % (35-52); LYMPHOCYTES % (AUTO) 18 % (12-44); MEAN CORPUSCULAR HGB CONC 33 g/dL (32-36); MEAN CORPUSCULAR VOLUME 96 fL (80-99); MONOCYTES # (AUTO) 1.5 10^3/uL (0.0-1.0); MONOCYTES % (AUTO) 14 % (0-12); NEUTROPHILS # (AUTO) 7.2 10^3/uL (1.8-7.8); NEUTROPHILS % (AUTO) 64 % (42-75); PLATELET COUNT 402 10^3/uL (130-400); WHITE BLOOD COUNT 11.2 10^3/uL (4.3-11.0)
[2021-08-20 04:33] LABS: MEAN CORPUSCULAR HEMOGLOBIN 32 pg (25-34)
[2021-08-20 04:42] LABS: ALBUMIN 2.6 GM/DL (3.2-4.5); POTASSIUM 4.2 MMOL/L (3.6-5.0)
[2021-08-20 04:43] LABS: CALCIUM 7.8 MG/DL (8.5-10.1)
[2021-08-20 04:46] LABS: BILIRUBIN,TOTAL 0.9 MG/DL (0.1-1.0)
[2021-08-20 04:47] LABS: PHOSPHORUS 3.6 MG/DL (2.3-4.7)
[2021-08-20 04:48] LABS: CREATININE SERUM 0.81 MG/DL (0.60-1.30)
[2021-08-20 04:50] LABS: ABG BASE EXCESS -1.4 MMOL/L (-2.5-2.5); ABG OXYGEN SATURATION 78 % (94-100); ABG PCO2 45 MMHG (35-45); ABG PH 7.35 (7.37-7.43); ABG PO2 41 MMHG (79-93); ABG TCO2 25.1 MMOL/L (21.0-31.0); ALLENS TEST YES-POS; INSPIRED O2 3L; PATIENT TEMP 36.3; VENTILATOR NO
[2021-08-20 04:50] LABS: MAGNESIUM 1.7 MG/DL (1.6-2.4)
[2021-08-20] MEDS: KCL 20 MEQ TAB (K-DUR) PO SCH (05:12)
[2021-08-20] MEDS: MAGNESIUM 1 GM/100 ML IVPB 100 ML IV SCH ×3 (05:12→06:09)
[2021-08-20] MEDS: POTASSIUM CL 10MEQ/50ML IVPB 50 ML IV SCH (05:12)
[2021-08-20] MEDS: inSUlin ASPART (NovoLOG) 1 UNIT/0.01 ML (CHARGE PER UNIT) SC SCH ×4 (05:13→21:33)
[2021-08-20] MEDS ORDERED: MAGNESIUM 1 GM/100 ML IVPB 200 ML IV ONE (05:14)
[2021-08-20] MEDS: NOREPINEPHRINE 8 MG/250 ML 250 ML IV SCH ×2 (06:11→17:42)
--- NOTE | 2021-08-20 07:54 | Diagnostic Imaging Report ---
INDICATION: Elevated white blood cell count. COMPARISON: 08/19/2021 FINDINGS: No focal consolidation, failure, effusion or pneumothorax. Right IJ catheter at the SVC stable. IMPRESSION: No acute finding. Dictated by: Dictated on workstation # [id number]
--- NOTE | 2021-08-20 07:57 | Progress Note - Surgery ---
ERASTO PRADO 08/20/21 0757: Subjective Date Seen by a Provider: Aug 20, 2021 Time Seen by a Provider: 07:15 Subjective/Events-last exam Ms. Avina is being seen in follow-up for possible compartment syndrome. This morning she reports pain in her right leg that is slightly better than last night. She rates her pain as an 8/10 this morning while it was a 9/10 yesterday. Her leg circumference has not increased since last night. A venous doppler showed no evidence of a DVT. She does endorse "pins and needles" in her RLE that is not present in her LLE. Review of Systems General: Chills, Other (Subjective fever) Pulmonary: No Dyspnea, No Cough Cardiovascular: No: Chest Pain, Palpitations Gastrointestinal: Nausea, Vomiting; No: Abdominal Pain Neurological: No: Weakness, Confusion Focused Exam Lactate Level 08/19/21 12:27: Lactic Acid Level 1.42 Objective Exam Vital Signs Date Time Temp Pulse Resp B/P (MAP) Pulse Ox O2 Delivery O2 Flow Rate FiO2 08/20/21 07:42 37.3 08/20/21 06:45 82 24 101/50 08/20/21 06:30 82 16 78/57 08/20/21 06:15 82 95/79 89 08/20/21 06:11 103/49 08/20/21 06:00 82 18 103/49 96 Nasal Cannula 2.00 08/20/21 05:45 82 99/51 100 08/20/21 05:30 86 19 110/64 98 08/20/21 05:15 84 26 108/49 100 08/20/21 05:00 85 27 112/49 100 Nasal Cannula 2.00 08/20/21 04:49 91 24 101/41 100 08/20/21 04:30 83 25 114/55 100 08/20/21 04:16 89 25 93/46 99 08/20/21 04:00 100 Nasal Cannula 2.00 08/20/21 04:00 87 89/53 Nasal Cannula 2.00 08/20/21 03:45 85 22 94/45 100 08/20/21 03:30 79 106/51 100 08/20/21 03:15 36.3 100 Nasal Cannula 2.00 08/20/21 03:02 89 109/63 100 Nasal Cannula 2.00 08/20/21 02:45 82 98/46 100 08/20/21 02:30 83 24 92/62 97 08/20/21 02:15 91 95/51 99 08/20/21 02:00 86 103/57 100 Nasal Cannula 2.00 08/20/21 01:45 83 94/61 100 08/20/21 01:39 83 96/59 100 08/20/21 01:30 90 79/58 99 08/20/21 01:15 85 99/44 100 08/20/21 01:00 86 08/20/21 01:00 86 98/55 100 Nasal Cannula 2.00 08/20/21 00:45 106/53 100 08/20/21 00:30 89 100/59 100 08/20/21 00:15 84 96/55 100 08/20/21 00:00 100 Nasal Cannula 2.00 08/20/21 00:00 84 96/57 100 Nasal Cannula 2.00 08/19/21 23:45 82 110/57 100 08/19/21 23:30 85 108/55 100 08/19/21 23:29 36.4 Nasal Cannula 2.00 08/19/21 23:15 81 102/55 100 08/19/21 23:00 90 105/57 100 Nasal Cannula 2.00 08/19/21 22:52 82 82/59 100 08/19/21 22:36 87 89/49 08/19/21 22:35 87 94/44 100 08/19/21 22:15 82 20 97/78 97 08/19/21 22:01 85 19 100/47 Nasal Cannula 2.00 08/19/21 21:45 80 20 125/55 99 08/19/21 21:30 36.8 08/19/21 21:30 100 Nasal Cannula 2.00 08/19/21 21:30 84 26 120/70 99 08/19/21 21:15 78 18 124/68 100 08/19/21 21:00 80 19 115/41 99 Nasal Cannula 2.00 08/19/21 20:45 82 16 128/70 98 08/19/21 20:30 79 18 121/56 100 08/19/21 20:15 78 18 121/76 100 08/19/21 20:00 89 11 121/73 99 Nasal Cannula 2.00 08/19/21 20:00 Nasal Cannula 2.00 08/19/21 19:45 80 19 119/63 100 08/19/21 19:30 36.8 08/19/21 19:30 78 20 122/68 100 08/19/21 19:15 81 15 129/80 100 08/19/21 19:00 80 08/19/21 19:00 80 16 126/69 97 Nasal Cannula 2.00 08/19/21 18:00 80 17 106/59 98 Nasal Cannula 2.00 08/19/21 17:00 86 15 120/61 99 08/19/21 16:26 84 112/68 08/19/21 16:03 36.3 08/19/21 16:00 84 20 133/64 100 08/19/21 15:56 100 Nasal Cannula 3.00 08/19/21 15:30 84 23 101/63 100 08/19/21 15:25 36.8 08/19/21 15:25 78 08/19/21 14:57 89 20 96/80 100 Room Air 08/19/21 14:05 36.0 91 93 08/19/21 13:18 91 85/67 08/19/21 10:30 36.0 100 18 94/71 (79) 93 Room Air I & O 08/20/21 07:00 Intake Total 4800 ml Output Total 1300 ml Balance 3500 ml Capillary Refill : Less Than 3 Seconds General Appearance: No Apparent Distress, Obese HEENT: PERRL/EOMI; No Scleral Icterus (L), No Scleral Icterus (R) Neck: Normal Inspection, Non Tender, Supple, Other (Central line) Respiratory: Chest Non Tender, Lungs Clear (Anterior posts), Normal Breath Sounds, No Accessory Muscle Use, No Respiratory Distress Cardiovascular: Regular Rate, Rhythm, No Gallop, No Murmur, Normal Peripheral Pulses (UE and LE) Peripheral Pulses: 2+ Dorsalis Pedis (R), 2+ Left Dors-Pedis (L), 2+ Radial Pulses (R), 2+ Radial Pulses (L) Gastrointestinal: normal bowel sounds, non tender, soft Extremity: Calf Tenderness, Swelling (Severe swelling RLE) Neurologic/Psychiatric: Alert, Oriented x3, No Motor/Sensory Deficits Skin: Normal Color, Warm/Dry, Ecchymosis (R knee) Lymphatic: No Adenopathy (Head and neck) Results Lab Laboratory Tests 08/19/21 11:05: White Blood Count 16.1H, Red Blood Count 2.92L, Hemoglobin 9.1L, Hematocrit 28L, Mean Corpuscular Volume 96, Mean Corpuscular Hemoglobin 31, Mean Corpuscular Hemoglobin Concent 33, Red Cell Distribution Width 12.6, Platelet Count 533H, Mean Platelet Volume 10.3, Immature Granulocyte % (Auto) 2, Neutrophils (%) (Auto) 70, Lymphocytes (%) (Auto) 14, Monocytes (%) (Auto) 11, Eosinophils (%) (Auto) 3, Basophils (%) (Auto) 1, Neutrophils # (Auto) 11.2H, Lymphocytes # (Auto) 2.3, Monocytes # (Auto) 1.8H, Eosinophils # (Auto) 0.4H, Basophils # (Auto) 0.1, Immature Granulocyte # (Auto) 0.3H, Neutrophils % (Manual) 69, Lymphocytes % (Manual) 19, Monocytes % (Manual) 7, Eosinophils % (Manual) 5, Blood Morphology Comment NORMAL, Prothrombin Time 15.2H, INR Comment 1.2, Sodium Level 133L, Potassium Level 4.4, Chloride Level 98, Carbon Dioxide Level 23, Anion Gap 12, Blood Urea Nitrogen 17, Creatinine 1.07, Estimat Glomerular Filtration Rate 56, BUN/Creatinine Ratio 16, Glucose Level 150H, Calcium Level 8.8, Corrected Calcium 9.4, Total Bilirubin 0.8, Aspartate Amino Transf (AST/SGOT) 15, Alanine Aminotransferase (ALT/SGPT) 14, Alkaline Phosphatase 101, Total Protein 6.0L, Albumin 3.2, Procalcitonin 0.05 08/19/21 12:18: Urine Color YELLOW, Urine Clarity CLEAR, Urine pH 5.5, Urine Specific [place] >=1.030, Urine Protein TRACEH, Urine Glucose (UA) NEGATIVE, Urine Ketones NEGATIVE, Urine Nitrite POSITIVEH, Urine Bilirubin 1+H, Urine Urobilinogen 2.0, Urine Leukocyte Esterase TRACEH, Urine RBC (Auto) NEGATIVE, Urine RBC NONE, Urine WBC 5-10H, Urine Squamous Epithelial Cells 2-5, Urine Renal Epithelial Cells NONE, Urine Crystals NONE, Urine Bacteria LARGEH, Urine Casts NONE, Urine Mucus NEGATIVE, Urine Culture Indicated YES 08/19/21 12:27: Lactic Acid Level 1.42 08/19/21 15:48: Glucometer 117H 08/19/21 15:55: Blood Gas Puncture Site LT RAD, Blood Gas Patient Temperature 36.3, Arterial Blood pH 7.38, Arterial Blood Partial Pressure CO2 39, Arterial Blood Partial Pressure O2 117H, Arterial Blood HCO3 23, Arterial Blood Total CO2 24.0, Arterial Blood Oxygen Saturation 99, Arterial Blood Base Excess -1.8, Fabian Test YES-POS, Blood Gas Ventilator Setting NO, Blood Gas Inspired Oxygen 3 L 08/19/21 17:25: White Blood Count 13.8H, Red Blood Count 2.55L, Hemoglobin 8.0L, Hematocrit 24L, Mean Corpuscular Volume 95, Mean Corpuscular Hemoglobin 31, Mean Corpuscular Hemoglobin Concent 33, Red Cell Distribution Width 12.5, Platelet Count 441H, Mean Platelet Volume 9.7, Sodium Level 133L, Potassium Level 4.8, Chloride Level 102, Carbon Dioxide Level 22, Anion Gap 9, Blood Urea Nitrogen 19H, Creatinine 1.04, Estimat Glomerular Filtration Rate 58, BUN/Creatinine Ratio 18, Glucose Level 141H, Calcium Level 8.1L, Troponin I < 0.028 08/19/21 18:02: D-Dimer 1.55H 08/19/21 20:32: Glucometer 111H 08/20/21 04:22: White Blood Count 11.2H, Red Blood Count 2.18L, Hemoglobin 7.0L, Hematocrit 21L, Mean Corpuscular Volume 96, Mean Corpuscular Hemoglobin 32, Mean Corpuscular Hemoglobin Concent 33, Red Cell Distribution Width 12.5, Platelet Count 402H, Mean Platelet Volume 10.0, Immature Granulocyte % (Auto) 2, Neutrophils (%) (Auto) 64, Lymphocytes (%) (Auto) 18, Monocytes (%) (Auto) 14H, Eosinophils (%) (Auto) 3, Basophils (%) (Auto) 0, Neutrophils # (Auto) 7.2, Lymphocytes # (Auto) 2.0, Monocytes # (Auto) 1.5H, Eosinophils # (Auto) 0.3, Basophils # (Auto) 0.1, Immature Granulocyte # (Auto) 0.2H, Sodium Level 131L, Potassium Level 4.2, Chloride Level 100, Carbon Dioxide Level 20L, Anion Gap 11, Blood Urea Nitrogen 19H, Creatinine 0.81, Estimat Glomerular Filtration Rate 78, BUN/Creatinine Ratio 23, Glucose Level 134H, Calcium Level 7.8L, Corrected Calcium 8.9, Phosphorus Level 3.6, Magnesium Level 1.7, Total Bilirubin 0.9, Aspartate Amino Transf (AST/SGOT) 17, Alanine Aminotransferase (ALT/SGPT) 10, Alkaline Phosphatase 77, Total Protein 5.0L, Albumin 2.6L 08/20/21 04:42: Blood Gas Puncture Site LEFT RADIAL, Blood Gas Patient Temperature 36.3, Arterial Blood pH 7.35L, Arterial Blood Partial Pressure CO2 45, Arterial Blood Partial Pressure O2 41L, Arterial Blood HCO3 24, Arterial Blood Total CO2 25.1, Arterial Blood Oxygen Saturation 78L, Arterial Blood Base Excess -1.4, Fabian Test YES-POS, Blood Gas Ventilator Setting NO, Blood Gas Inspired Oxygen 3L Microbiology 08/19/21 Urine Culture - Preliminary, Resulted Gram Negative [place] Assessment/Plan Assessment/Plan Assessment/Plan Assessment: RLE pain r/o compartment syndrome - dorsalis pedis pulse in tact - sensation intact - s/p R total knee replacement Severe hypotension - 103/49 this morning Leukocytosis - Trending down - monitor Hyponatremia - 131 this morning UTI Chronic Anemia Fall Obesity Plan: Continue IVF and Levophed drip for blood pressure control Monitor for suspicious sepsis. Continue on IV cefepime therapy. Blood cultures. Continue to monitor neurovascular status Will consult Dr. Moore for Orthopaedic input. Will have nursing continue to monitor/measure leg Pain control and supportive measures as needed HEAVEN CONNER DO 08/21/21 1145: Subjective Subjective/Events-last exam Patient right leg feeling better. No significant enlargement. Pain remains moderate. Able to move the leg with minimal pain. Okay with passive motion/movement. On pressors. Denies n/v fever sweats chills shortness of breath or chest pain. Objective Exam General Appearance: No Apparent Distress, Chronically ill, Obese HEENT: PERRL/EOMI, Normal ENT Inspection Neck: Normal Inspection, Non Tender, Supple Respiratory: Chest Non Tender, No Accessory Muscle Use, No Respiratory Distress Cardiovascular: Regular Rate, Rhythm, No JVD Gastrointestinal: non tender, soft Extremity: Swelling (Severe swelling RLE c bruising, okay with motion. good pulses b/l) Neurologic/Psychiatric: Alert, Oriented x3, No Motor/Sensory Deficits Skin: Normal Color, Warm/Dry, Ecchymosis (R knee) Assessment/Plan Assessment/Plan Assessment/Plan Fall from standing RLE pain - s/p R total knee replacement Severe hypotension - 103/49 this morning Leukocytosis - Trending down - monitor Hyponatremia - 131 this morning UTI Chronic Anemia Obesity Continue IVF and Levophed drip for blood pressure control Monitor for suspicious sepsis. Continue on IV cefepime therapy. Blood cultures. Continue to monitor neurovascular status Consulted Dr. Moore for Orthopaedic input, I feel this appears normal and no issue with knee replacement Will have nursing continue to monitor/measure leg Pain control and supportive measures as needed Supervisory-Addendum Brief Verification & Attestation Participated in pt care: history, MDM, physical Personally performed: exam, history, MDM, supervision of care Care discussed with: Medical Student Procedures: n/a Results interpretation: Verified all documentation Verification and Attestation of Medical Student E/M Service A medical student performed and documented this service in my presence. I reviewed and verified all information documented by the medical student and made modifications to such information, when appropriate. I personally performed the physical exam and medical decision making. Heaven Conner, Aug 20, 2021,18:45 ERASTO PRADO Aug 20, 2021 07:57 HEAVEN CONNER DO Aug 21, 2021 11:45
[2021-08-20] MEDS ORDERED: NS IV 500 ML 500 ML ONE (08:01)
[2021-08-20 08:24] VITALS: BP 108/46
[2021-08-20] MEDS: DOCUSATE SODIUM 100 MG (COLACE) CAP PO SCH ×2 (08:40→21:32)
[2021-08-20] MEDS: ACETAMINOPHEN 325 MG TABLET PO PRN (08:40)
[2021-08-20] MEDS: SENNOSIDES 8.6 MG (SENOKOT) TAB PO SCH ×2 (08:40→21:32)
[2021-08-20 08:57] VITALS: BP 103/62
[2021-08-20 09:01] VITALS: BP 109/59
[2021-08-20 09:10] VITALS: BP 110/56
[2021-08-20 09:15] VITALS: BP 103/57
[2021-08-20] MEDS ORDERED: HYDROCORTISONE 100 MG/2 ML (Solu-CORTEF) VIAL IV ONE (10:15)
--- NOTE | 2021-08-20 10:27 | Consultation - Ortho ---
Consult - Ortho Subjective Date of Exam 08/20/21 Chief Complaint Status post right total knee arthroplasty HPI/Events since last exam Mrs. Avina Is a 71-year-old white female who is 8 days postop right total knee arthroplasty by Dr. Kebede at [facility].Yesterday she was walking in her home and thinks she caught her foot and fell. She states she woke up and she was on her right side. She does not think she passed out or got dizzy and fell. She was seen in the emergency room where she is evaluated and x-rayed and noted to have no fractures involving the right lower extremity. The total knee was in good position. She developed hypotension in the emergency room was admitted for what sounds like urosepsis.He is presently in the ICU. I saw her in consultation this morning. She stated that prior to her fall her knee was swollen and tight and she does not think it is any different than it was before her fall other than she has increased pain. She states she has little bit of pain in the hip but most the pain is in the knee. She denies any change in her sensation in the right lower extremity. She had a left total knee 1 year ago and had similar problems with anemia and hy potension. She was in rehab for her left knee here but wanted to try it at home on her own instead of going back into rehab. Her dressing has not been changed since her discharge from [place]. Medical, Surgical History Reviewed and no additions or changes Social History Reviewed and no additions or changes Family History Reviewed and no additions or changes Review of Systems Reviewed and no additions or changes Allergies: Coded Allergies: Tetracyclines (Verified Allergy, Unknown, high doses cause stomach pain, 04/16/16) pregabalin (Verified Allergy, Unknown, 04/16/16) Home Meds Active Scripts Oxycodone HCl/Acetaminophen (Percocet 5-325 mg Tablet) 1 Each Tablet, 1-2 EACH PO Q6H PRN for PAIN, #30 TAB Prov:SHANTEL,JOHNSON Q DPM 05/02/16 Cephalexin (Cephalexin) 500 Mg Capsule, 1 CAP PO TID, #21 CAP Prov:SHANTEL,JOHNSON Q DPM 05/02/16 Reported Medications Pantoprazole Sodium (Pantoprazole Sodium) 40 Mg Tablet.dr, 40 MG PO DAILY, TAB 04/16/16 Lorazepam (Lorazepam) 0.5 Mg Tablet, 0.5 MG PO BID PRN for ANXIETY, TAB 04/16/16 Multivits-Min/Iron/FA/Lutein (Centrum Silver Women Tablet) 1 Each Tablet, 1 EACH PO DAILY, TAB 04/16/16 Naproxen Sodium (Naproxen Sodium) 220 Mg Tablet, 220 MG PO BID, TAB 04/16/16 Cholecalciferol (Vitamin D3) (Vitamin D3) 1,000 Unit Capsule, 2000 UNIT PO DAILY, CAP take 2 (1,000IU) tab 04/16/16 Hydrocodone Bit/Acetaminophen (LORTAB 7.5 MG TABLET) 1 Each Tablet, 1 EACH PO BID PRN for PAIN, TAB 04/16/16 Ropinirole HCl (Ropinirole HCl) 1 Mg Tablet, 1-2 MG PO BID, TAB take 1 mg in am take 2 (1mg) tabs at HS 04/16/16 Diclofenac Sodium (Diclofenac Sodium) 75 Mg Tablet.dr, 75 MG PO BID, TAB 04/16/16 Albuterol Sulfate (Proventil Hfa) 6.7 Gm Hfa.aer.ad, 2 PUFF IH Q4H PRN for SHORTNESS OF BREATH, GM 04/16/16 Levothyroxine Sodium (Levothyroxine Sodium) 125 Mcg Tablet, 125 MCG PO DAILY, TAB 04/16/16 Valsartan (Valsartan) 320 Mg Tablet, 160 MG PO DAILY, TAB take 1/2 of 320mg tab 10/09/15 Furosemide (Furosemide) 20 Mg Tablet, 20 MG PO DAILY, TAB 10/09/15 Duloxetine HCl (Cymbalta) 60 Mg Capsule.dr, 60 MG PO BID, CAP 10/09/15 Objective Exam Constitutional: [] HEENT: [] Neck: [] Cardiovascular: [] Respiratory: [] Gastrointestinal: [] Genitourinary: [] Skin: [] Back/Spine: [] Extremities: [No pain with palpation of the right hip. Gentle internal and external rotation of the right hip is nonpainful. Any motion or palpation of the anterior knee is painful. I removed her dressing and her incision looks good without redness or drainage. She has some bruising about the knee. Pain along the collateral ligaments. Pain anterior knee. I flexed her up to about 30 degrees and she had increasing pain. No high or low riding patella. She has soft calf compartments as well as soft thigh compartments. She is able to do dorsiflex and plantarflex the foot and ankle without pain pain or weakness. She has normal sensation of the foot and toes with good cap refill. Good pulses. On exam of the knee for stability and there is no apparent instability on varus or valgus stress. It is difficult to evaluate due to the size of the leg and the patient unable to completely relax due to the pain.] Neurologic: [] Psychiatric: [] Hematologic/lymphatic/immunologic: [] Vital Signs Vital Signs Date Time Temp Pulse Resp B/P (MAP) Pulse Ox O2 Delivery O2 Flow Rate FiO2 08/20/21 09:54 37.2 08/20/21 09:15 37.3 87 18 103/57 96 Room Air 08/20/21 09:10 37.2 84 18 110/56 96 Room Air 08/20/21 09:01 37.2 78 15 109/59 95 Room Air 08/20/21 09:00 80 110/56 94 Nasal Cannula 2.00 08/20/21 08:57 37.2 78 15 103/62 95 Room Air 08/20/21 08:40 37.8 08/20/21 08:24 37.8 84 18 108/46 100 Room Air 08/20/21 08:00 83 9 97/49 98 Nasal Cannula 2.00 08/20/21 07:42 37.3 08/20/21 07:00 85 08/20/21 07:00 84 22 105/50 91 Nasal Cannula 2.00 08/20/21 06:45 82 24 101/50 08/20/21 06:30 82 16 78/57 08/20/21 06:15 82 95/79 89 08/20/21 06:11 103/49 08/20/21 06:00 82 18 103/49 96 Nasal Cannula 2.00 08/20/21 05:45 82 99/51 100 08/20/21 05:30 86 19 110/64 98 08/20/21 05:15 84 26 108/49 100 08/20/21 05:00 85 27 112/49 100 Nasal Cannula 2.00 08/20/21 04:49 91 24 101/41 100 08/20/21 04:30 83 25 114/55 100 08/20/21 04:16 89 25 93/46 99 08/20/21 04:00 100 Nasal Cannula 2.00 08/20/21 04:00 87 89/53 Nasal Cannula 2.00 08/20/21 03:45 85 22 94/45 100 08/20/21 03:30 79 106/51 100 08/20/21 03:15 36.3 100 Nasal Cannula 2.00 08/20/21 03:02 89 109/63 100 Nasal Cannula 2.00 08/20/21 02:45 82 98/46 100 08/20/21 02:30 83 24 92/62 97 08/20/21 02:15 91 95/51 99 08/20/21 02:00 86 103/57 100 Nasal Cannula 2.00 08/20/21 01:45 83 94/61 100 08/20/21 01:39 83 96/59 100 08/20/21 01:30 90 79/58 99 08/20/21 01:15 85 99/44 100 08/20/21 01:00 86 08/20/21 01:00 86 98/55 100 Nasal Cannula 2.00 08/20/21 00:45 106/53 100 08/20/21 00:30 89 100/59 100 08/20/21 00:15 84 96/55 100 08/20/21 00:00 100 Nasal Cannula 2.00 08/20/21 00:00 84 96/57 100 Nasal Cannula 2.00 08/19/21 23:45 82 110/57 100 08/19/21 23:30 85 108/55 100 08/19/21 23:29 36.4 Nasal Cannula 2.00 08/19/21 23:15 81 102/55 100 08/19/21 23:00 90 105/57 100 Nasal Cannula 2.00 08/19/21 22:52 82 82/59 100 08/19/21 22:36 87 89/49 08/19/21 22:35 87 94/44 100 08/19/21 22:15 82 20 97/78 97 08/19/21 22:01 85 19 100/47 Nasal Cannula 2.00 08/19/21 21:45 80 20 125/55 99 08/19/21 21:30 36.8 08/19/21 21:30 100 Nasal Cannula 2.00 08/19/21 21:30 84 26 120/70 99 08/19/21 21:15 78 18 124/68 100 08/19/21 21:00 80 19 115/41 99 Nasal Cannula 2.00 08/19/21 20:45 82 16 128/70 98 08/19/21 20:30 79 18 121/56 100 08/19/21 20:15 78 18 121/76 100 08/19/21 20:00 89 11 121/73 99 Nasal Cannula 2.00 08/19/21 20:00 Nasal Cannula 2.00 08/19/21 19:45 80 19 119/63 100 08/19/21 19:30 36.8 08/19/21 19:30 78 20 122/68 100 08/19/21 19:15 81 15 129/80 100 08/19/21 19:00 80 08/19/21 19:00 80 16 126/69 97 Nasal Cannula 2.00 08/19/21 18:00 80 17 106/59 98 Nasal Cannula 2.00 08/19/21 17:00 86 15 120/61 99 08/19/21 16:26 84 112/68 08/19/21 16:03 36.3 08/19/21 16:00 84 20 133/64 100 08/19/21 15:56 100 Nasal Cannula 3.00 08/19/21 15:30 84 23 101/63 100 08/19/21 15:25 36.8 08/19/21 15:25 78 08/19/21 14:57 89 20 96/80 100 Room Air 08/19/21 14:05 36.0 91 93 08/19/21 13:18 91 85/67 08/19/21 10:30 36.0 100 18 94/71 (79) 93 Room Air I & O 08/20/21 07:00 Intake Total 4800 ml Output Total 1300 ml Balance 3500 ml Lab Results Laboratory Tests 08/19/21 11:05: White Blood Count 16.1H, Red Blood Count 2.92L, Hemoglobin 9.1L, Hematocrit 28L, Mean Corpuscular Volume 96, Mean Corpuscular Hemoglobin 31, Mean Corpuscular Hemoglobin Concent 33, Red Cell Distribution Width 12.6, Platelet Count 533H, Mean Platelet Volume 10.3, Immature Granulocyte % (Auto) 2, Neutrophils (%) (Auto) 70, Lymphocytes (%) (Auto) 14, Monocytes (%) (Auto) 11, Eosinophils (%) (Auto) 3, Basophils (%) (Auto) 1, Neutrophils # (Auto) 11.2H, Lymphocytes # (Auto) 2.3, Monocytes # (Auto) 1.8H, Eosinophils # (Auto) 0.4H, Basophils # (Auto) 0.1, Immature Granulocyte # (Auto) 0.3H, Neutrophils % (Manual) 69, Lymphocytes % (Manual) 19, Monocytes % (Manual) 7, Eosinophils % (Manual) 5, Bl ood Morphology Comment NORMAL, Prothrombin Time 15.2H, INR Comment 1.2, Sodium Level 133L, Potassium Level 4.4, Chloride Level 98, Carbon Dioxide Level 23, Anion Gap 12, Blood Urea Nitrogen 17, Creatinine 1.07, Estimat Glomerular Filtration Rate 56, BUN/Creatinine Ratio 16, Glucose Level 150H, Calcium Level 8.8, Corrected Calcium 9.4, Total Bilirubin 0.8, Aspartate Amino Transf (AST/SGOT) 15, Alanine Aminotransferase (ALT/SGPT) 14, Alkaline Phosphatase 101, Total Protein 6.0L, Albumin 3.2, Procalcitonin 0.05 08/19/21 12:18: Urine Color YELLOW, Urine Clarity CLEAR, Urine pH 5.5, Urine Specific [place] >=1.030, Urine Protein TRACEH, Urine Glucose (UA) NEGATIVE, Urine Ketones NEGATIVE, Urine Nitrite POSITIVEH, Urine Bilirubin 1+H, Urine Urobilinogen 2.0, Urine Leukocyte Esterase TRACEH, Urine RBC (Auto) NEGATIVE, Urine RBC NONE, Urine WBC 5-10H, Urine Squamous Epithelial Cells 2-5, Urine Renal Epithelial Cells NONE, Urine Crystals NONE, Urine Bacteria LARGEH, Urine Casts NONE, Urine Mucus NEGATIVE, Urine Culture Indicated YES 08/19/21 12:27: Lactic Acid Level 1.42 08/19/21 15:48: Glucometer 117H 08/19/21 15:55: Blood Gas Puncture Site LT RAD, Blood Gas Patient Temperature 36.3, Arterial Blood pH 7.38, Arterial Blood Partial Pressure CO2 39, Arterial Blood Partial Pressure O2 117H, Arterial Blood HCO3 23, Arterial Blood Total CO2 24.0, Arterial Blood Oxygen Saturation 99, Arterial Blood Base Excess -1.8, Fabian Test YES-POS, Blood Gas Ventilator Setting NO, Blood Gas Inspired Oxygen 3 L 08/19/21 17:25: White Blood Count 13.8H, Red Blood Count 2.55L, Hemoglobin 8.0L, Hematocrit 24L, Mean Corpuscular Volume 95, Mean Corpuscular Hemoglobin 31, Mean Corpuscular Hemoglobin Concent 33, Red Cell Distribution Width 12.5, Platelet Count 441H, Mean Platelet Volume 9.7, Sodium Level 133L, Potassium Level 4.8, Chloride Level 102, Carbon Dioxide Level 22, Anion Gap 9, Blood Urea Nitrogen 19H, Creatinine 1.04, Estimat Glomerular Filtration Rate 58, BUN/Creatinine Ratio 18, Glucose Level 141H, Calcium Level 8.1L, Troponin I < 0.028 08/19/21 18:02: D-Dimer 1.55H 08/19/21 20:32: Glucometer 111H 08/20/21 04:22: White Blood Count 11.2H, Red Blood Count 2.18L, Hemoglobin 7.0L, Hematocrit 21L, Mean Corpuscular Volume 96, Mean Corpuscular Hemoglobin 32, Mean Corpuscular Hemoglobin Concent 33, Red Cell Distribution Width 12.5, Platelet Count 402H, Mean Platelet Volume 10.0, Immature Granulocyte % (Auto) 2, Neutrophils (%) (Auto) 64, Lymphocytes (%) (Auto) 18, Monocytes (%) (Auto) 14H, Eosinophils (%) (Auto) 3, Basophils (%) (Auto) 0, Neutrophils # (Auto) 7.2, Lymphocytes # (Auto) 2.0, Monocytes # (Auto) 1.5H, Eosinophils # (Auto) 0.3, Basophils # (Auto) 0.1, Immature Granulocyte # (Auto) 0.2H, Sodium Level 131L, Potassium Level 4.2, Chloride Level 100, Carbon Dioxide Level 20L, Anion Gap 11, Blood Urea Nitrogen 19H, Creatinine 0.81, Estimat Glomerular Filtration Rate 78, BUN/Creatinine Ratio 23, Glucose Level 134H, Calcium Level 7.8L, Corrected Calcium 8.9, Phosphorus Level 3.6, Magnesium Level 1.7, Total Bilirubin 0.9, Aspartate Amino Transf (AST/SGOT) 17, Alanine Aminotransferase (ALT/SGPT) 10, Alkaline Phosphatase 77, Total Protein 5.0L, Albumin 2.6L 08/20/21 04:42: Blood Gas Puncture Site LEFT RADIAL, Blood Gas Patient Temperature 36.3, Arterial Blood pH 7.35L, Arterial Blood Partial Pressure CO2 45, Arterial Blood Partial Pressure O2 41L, Arterial Blood HCO3 24, Arterial Blood Total CO2 25.1, Arterial Blood Oxygen Saturation 78L, Arterial Blood Base Excess -1.4, Fabian Test YES-POS, Blood Gas Ventilator Setting NO, Blood Gas Inspired Oxygen 3L Microbiology 08/19/21 Urine Culture - Preliminary, Resulted Gram Negative [facility] X-rays of the hip shows degenerative changes but no fracture. X-rays of the knee shows the total knee arthroplasty in good position with no evidence of f racture. X-rays and ankle shows no evidence of fracture I reviewed the measurements of her knee which are right above the patella on right below the patella throughout the evening and there is no change on measurements every 2 hours. The measurements were not taken over the compartments of the thigh or the calf. Assessment and Plan Assessment Status post right total knee with increased pain since fall yesterday Problem List Unchanged No evidence of compartment syndrome Plan The above was discussed with the patient. I talked to her about the swelling in her leg which again she does not think is much different. I explained to her that she could have little bit of a hemarthrosis due to her fall. I also talked to Dr. Kebede and Dr. Ely. Dr. Kebede states that she is supposed to be wearing HECTOR hose and using aspirin for DVT prophylaxis. He states if she cannot wear the HECTOR hose then she needs to be on Eliquis.He did not think her knee needed to be aspirated and I do not think so either. He wanted to go ahead and get her up with therapy and work on range of motion as well as ambulation. Apparently she will probably be staying here for rehab after discharge from the hospital. Again I changed the dressing and the wound looks good. Final Diagonsis Status post right total knee arthroplasty Level of the visit: Level 3 JESSICA WAGNER MD Aug 20, 2021 10:26
--- NOTE | 2021-08-20 11:45 | Tele-ICU Progress Note ---
Subjective Date Seen by a Provider: Aug 20, 2021 Time Seen by a Provider: 11:45 Subjective/Events-last exam (Tele-ICU Physician , Progress Note ) Available chart/ vitals / labs / Images reviewed Video assessment done using teleICU camera, rest of exam as per RN Discussed with RN , EXAM PER RN Events overnight : FEBRILE 37 FiO2 - ra I/O = => 2 L Drips: ns Pressors: , hemodynamically stable Consultants: Hospital course: (08/19) 71f admitted s/p fall at home after fall , hypotensive A/P Shock - received 4 L NS and on levo - possible shock with UTI , but PCT low -? PE - US done in ER - neg for DVT =cont hydration , weaning down levo -CVP < 8 - cont hydration -neg troponin - - no recent h/o steroid use , cortisol pending , stress dose of steroids 100 q 8 h 08/20 S/p fall using her walker, did not lose consciousness - ? mechanical fall vs being hypotensive at home resulting in fall ? - pain control - xrays done UTI = cx done , GNR + - IV cefepime Somnolence - improved - ABG acceptable s/p R total knee replacement on 08/12- DC on 08/15/21 - No evidence of compartment syndrome as per orto - pain control Anemia - ? chronic component - delutional - transfusion 1 uPRBC 08/20 Lines : r IJ 08/19 (Central Line Necessity Reviewed) Gordon: 08/19 OG: Nutrition: Analgesia: Anxiety/ delirium VTE Prophylaxis: nathalia 40 - ON HOLD as per PCP Stress Ulcer Prophylaxis: po Plans in collaboration with bedside consultants and IM MDs. Discussed with RN to reach out if any questions or concerns A total of 33 minutes of critical care time was devoted to this patient today, required to treat and/or prevent further deterioration of critical care condi tion ( as above) . Sepsis Event Evaluation Height, Weight, BMI Height: 5'4.00" Weight: 267lbs. 7.0oz. 121.912624kd; 46.52 BMI Method: Focused Exam Lactate Level 08/19/21 12:27: Lactic Acid Level 1.42 Exam Exam Patient acknowledged, consented, and participated in this virtual visit which was conducted using real time audio/video Vital Signs Date Time Temp Pulse Resp B/P (MAP) Pulse Ox O2 Delivery O2 Flow Rate FiO2 08/20/21 10:00 85 22 77/50 95 Nasal Cannula 2.00 08/20/21 09:54 37.2 08/20/21 09:15 37.3 87 18 103/57 96 Room Air 08/20/21 09:10 37.2 84 18 110/56 96 Room Air 08/20/21 09:01 37.2 78 15 109/59 95 Room Air 08/20/21 09:00 80 110/56 94 Nasal Cannula 2.00 08/20/21 08:57 37.2 78 15 103/62 95 Room Air 08/20/21 08:40 37.8 08/20/21 08:24 37.8 84 18 108/46 100 Room Air 08/20/21 08:00 83 9 97/49 98 Nasal Cannula 2.00 08/20/21 07:42 37.3 08/20/21 07:00 85 08/20/21 07:00 84 22 105/50 91 Nasal Cannula 2.00 08/20/21 06:45 82 24 101/50 08/20/21 06:30 82 16 78/57 08/20/21 06:15 82 95/79 89 08/20/21 06:11 103/49 08/20/21 06:00 82 18 103/49 96 Nasal Cannula 2.00 08/20/21 05:45 82 99/51 100 08/20/21 05:30 86 19 110/64 98 08/20/21 05:15 84 26 108/49 100 08/20/21 05:00 85 27 112/49 100 Nasal Cannula 2.00 08/20/21 04:49 91 24 101/41 100 08/20/21 04:30 83 25 114/55 100 08/20/21 04:16 89 25 93/46 99 08/20/21 04:00 100 Nasal Cannula 2.00 08/20/21 04:00 87 89/53 Nasal Cannula 2.00 08/20/21 03:45 85 22 94/45 100 08/20/21 03:30 79 106/51 100 08/20/21 03:15 36.3 100 Nasal Cannula 2.00 08/20/21 03:02 89 109/63 100 Nasal Cannula 2.00 08/20/21 02:45 82 98/46 100 08/20/21 02:30 83 24 92/62 97 08/20/21 02:15 91 95/51 99 08/20/21 02:00 86 103/57 100 Nasal Cannula 2.00 08/20/21 01:45 83 94/61 100 08/20/21 01:39 83 96/59 100 08/20/21 01:30 90 79/58 99 08/20/21 01:15 85 99/44 100 08/20/21 01:00 86 08/20/21 01:00 86 98/55 100 Nasal Cannula 2.00 08/20/21 00:45 106/53 100 08/20/21 00:30 89 100/59 100 08/20/21 00:15 84 96/55 100 08/20/21 00:00 100 Nasal Cannula 2.00 08/20/21 00:00 84 96/57 100 Nasal Cannula 2.00 08/19/21 23:45 82 110/57 100 08/19/21 23:30 85 108/55 100 08/19/21 23:29 36.4 Nasal Cannula 2.00 08/19/21 23:15 81 102/55 100 08/19/21 23:00 90 105/57 100 Nasal Cannula 2.00 08/19/21 22:52 82 82/59 100 08/19/21 22:36 87 89/49 08/19/21 22:35 87 94/44 100 08/19/21 22:15 82 20 97/78 97 08/19/21 22:01 85 19 100/47 Nasal Cannula 2.00 08/19/21 21:45 80 20 125/55 99 08/19/21 21:30 36.8 08/19/21 21:30 100 Nasal Cannula 2.00 08/19/21 21:30 84 26 120/70 99 08/19/21 21:15 78 18 124/68 100 08/19/21 21:00 80 19 115/41 99 Nasal Cannula 2.00 08/19/21 20:45 82 16 128/70 98 08/19/21 20:30 79 18 121/56 100 08/19/21 20:15 78 18 121/76 100 08/19/21 20:00 89 11 121/73 99 Nasal Cannula 2.00 08/19/21 20:00 Nasal Cannula 2.00 08/19/21 19:45 80 19 119/63 100 08/19/21 19:30 36.8 08/19/21 19:30 78 20 122/68 100 08/19/21 19:15 81 15 129/80 100 08/19/21 19:00 80 08/19/21 19:00 80 16 126/69 97 Nasal Cannula 2.00 08/19/21 18:00 80 17 106/59 98 Nasal Cannula 2.00 08/19/21 17:00 86 15 120/61 99 08/19/21 16:26 84 112/68 08/19/21 16:03 36.3 08/19/21 16:00 84 20 133/64 100 08/19/21 15:56 100 Nasal Cannula 3.00 08/19/21 15:30 84 23 101/63 100 08/19/21 15:25 36.8 08/19/21 15:25 78 08/19/21 14:57 89 20 96/80 100 Room Air 08/19/21 14:05 36.0 91 93 08/19/21 13:18 91 85/67 I & O 08/20/21 07:00 Intake Total 4800 ml Output Total 1300 ml Balance 3500 ml Height & Weight Height: 5'4.00" Weight: 267lbs. 7.0oz. 121.595419px; 46.52 BMI Method: General Appearance: No Apparent Distress, Obese HEENT: PERRL/EOMI; No Scleral Icterus (L), No Scleral Icterus (R) Neck: Normal Inspection, Non Tender, Supple, Other (Central line) Respiratory: Chest Non Tender, Lungs Clear (Anterior posts), Normal Breath Sounds, No Accessory Muscle Use, No Respiratory Distress Cardiovascular: Regular Rate, Rhythm, No Gallop, No Murmur, Normal Peripheral Pulses (UE and LE) Capillary Refill: Less Than 3 Seconds Peripheral Pulses: 2+ Dorsalis Pedis (R), 2+ Left Dors-Pedis (L), 2+ Radial Pulses (R), 2+ Radial Pulses (L) Gastrointestinal: normal bowel sounds, non tender, soft Extremity: Calf Tenderness, Swelling (Severe swelling RLE) Neurologic/Psychiatric: Alert, Oriented x3, No Motor/Sensory Deficits Skin: Normal Color, Warm/Dry, Ecchymosis (R knee) Lymphatic: No Adenopathy (Head and neck) Results Lab Laboratory Tests 08/19/21 11:05 08/19/21 17:25 08/20/21 04:22 Assessment/Plan Assessment/Plan 1 SONYA KELLY MD Aug 20, 2021 11:45
--- NOTE | 2021-08-20 12:07 | Progress Note - Hospitalist ---
TAWNY THURSTON 08/20/21 1207: Subjective HPI/CC On Admission Time Seen by Provider: 08:45 Chief complaint: Fall with right leg pain History of present illness: This is a 71-year-old white female patient of [facility] who is status post right knee replacement by Dr. Kebede at [facility] on 08/12/2021 and discharged 08/15/2021 who presented to the ER after a fall with right leg pain. Patient was lethargic after given pain medication so no history obtainable. She was assessed to be hypotensive requiring central line placement and aggressive IV fluid resuscitation along with pressor therapy. White count was 18,000 but no evidence of sepsis as source of hypotension. UTI noted which was mild so cefepime was placed. Hemoglobin was 9 we will monitor closely. Subjective/Events-last exam The patient was laying in bed this morning and was not in acute distress. She reports that she has pain in the R leg. Per nursing: they have been measuring her R knee diameter which has not increased in size. Nursing did note that an area distal to the measurement location had some increased swelling since yesterday. The patient was receving her first unit of blood this morning. Lovenox was held last night per nursing. PT reports that she is hungry. She had no other complaints. Review of Systems General: Chills, Other (reports feeling like she has had a fever ) HEENT: No Head Aches, No Visual Changes Pulmonary: No Dyspnea, No Cough Cardiovascular: No: Chest Pain, Palpitations Gastrointestinal: No: Nausea, Vomiting Genitourinary: No Dysuria, No Hematuria Musculoskeletal: leg pain (R leg ) Neurological: No: Change in speech, Confusion Focused Exam Lactate Level 08/19/21 12:27: Lactic Acid Level 1.42 Objective Exam Vital Signs Vital Signs Date Time Temp Pulse Resp B/P (MAP) Pulse Ox O2 Delivery O2 Flow Rate FiO2 08/20/21 12:20 36.7 83 14 101/51 100 Room Air 08/20/21 11:00 2.00 Capillary Refill : Less Than 3 Seconds General Appearance: No Apparent Distress, Obese HEENT: PERRL/EOMI, Moist Mucous Membranes Neck: Full Range of Motion, Normal Inspection, Non Tender, Supple Respiratory: Chest Non Tender, Lungs Clear, Normal Breath Sounds, No Accessory Muscle Use, No Respiratory Distress Cardiovascular: Regular Rate, Rhythm, No Murmur, Normal Peripheral Pulses Gastrointestinal: Normal Bowel Sounds, No Organomegaly, No Pulsatile Mass, Soft, Tenderness (at R middle abdomen ) Extremity: No Calf Tenderness, No Pedal Edema, Swelling (of R knee and R miller ), Other (surgical incision dressed, clean and dry ) Neurologic/Psychiatric: Alert, Oriented x3, No Motor/Sensory Deficits, Normal Mood/Affect Skin: Normal Color, Warm/Dry Lymphatic: No Adenopathy Results/Procedures Lab Laboratory Tests 08/19/21 17:25 08/20/21 04:22 Patient resulted labs reviewed. Assessment/Plan Assessment and Plan Assess & Plan/Chief Complaint Assessment: Hypovolemic shock Status post total knee replacement by Dr. Delio angel [place] on 08/12/2021 and discharged 08/15/2021 UTI without signs of sepsis Anemia postop acute blood loss Leukocytosis Hyponatremia Elevated D-dimer with bilateral lower extremity ultrasounds negative for DVT and no hypoxia Fibromyalgia Chronic pain History of hypertension Obesity DVT prophylaxis Plan: Hypovolemic shock Status post total knee replacement by Dr. Delio angel [place] on 08/12/2021 and discharged 08/15/2021 UTI without signs of sepsis Anemia postop acute blood loss Leukocytosis Hyponatremia Elevated D-dimer with bilateral lower extremity ultrasounds negative for DVT and no hypoxia Fibromyalgia Chronic pain History of hypertension Obesity The patient continues in ICU care. Her blood pressures continue to fall into hypotensive ranges. She will be kept on Levophed and IVFs. We will check a cortisol level due to her hypotension, and administer 100mg of hydrocortisone once, with 100mg hydrocortisone Q8 hr after. Cardiology consulted and an echocardiogram was ordered due to her hypotension. We discussed the status of the PT with Dr. Moore, Orthopedics, who mentions we do not need to monitor for compartment syndrome any longer. We will continue to monitor her Anemia and give blood prn. Continue on Cefepime for her UTI. Try to start PT and OT tomorrow if patient's blood pressure is stable. DVT prophylaxis Lovenox injections. ESTELA FERNANDEZ DO 08/21/21 0546: Subjective HPI/CC On Admission Date Seen by Provider: Aug 20, 2021 Subjective/Events-last exam Pt is doing a lot better but hypotension still persists Will check Cortisol level and initiate Hydrocortisone 100 mg IV q 8 hours Leg measurement doesn't have to be continued Had a long conversation with Dr. Kebede and Dr. Caba did see her and will talk to Dr. Kebede No compartment syndrome noted Lovenox held Room air at 100% now Sodium level is 131 PT and OT and in-patient rehab will likely be required Hemoglobin 7.0, receiving one unit of blood right now and that will help BP Review of Systems General: Fatigue, Malaise Musculoskeletal: leg pain (R leg ) Objective Exam General Appearance: No Apparent Distress, WD/WN, Chronically ill, Obese Respiratory: Lungs Clear, Normal Breath Sounds Cardiovascular: Regular Rate, Rhythm Neurologic/Psychiatric: Alert, Oriented x3 Assessment/Plan Assessment and Plan Assess & Plan/Chief Complaint Pain control Transfuse 1 unit Hydrocortisone empirically Supportive care ICU Pressor therapy Supervisory-Addendum Brief Verification & Attestation Participated in pt care: history, MDM, physical Personally performed: exam, history, MDM, supervision of care Care discussed with: Medical Student Procedures: n/a Results interpretation: Verified all documentation Verification and Attestation of Medical Student E/M Service A medical student performed and documented this service in my presence. I reviewed and verified all information documented by the medical student and made modifications to such information, when appropriate. I personally performed the physical exam and medical decision making. Estela Fernandez, Aug 21, 2021,05:44 TAWNY THURSTON Aug 20, 2021 12:07 ESTELA FERNANDEZ DO Aug 21, 2021 05:46
[2021-08-20 12:20] VITALS: BP 101/51
[2021-08-20] MEDS ORDERED: IBUP-2473 PO (12:22)
[2021-08-20] MEDS ORDERED: FURO40TA4 PO (12:22)
[2021-08-20] MEDS ORDERED: ACHD5005 PO (12:22)
[2021-08-20] MEDS ORDERED: GABA300C PO (12:22)
[2021-08-20] MEDS ORDERED: TRAM50TA3 PO (12:22)
[2021-08-20] MEDS ORDERED: LEVO150T6 PO (12:22)
[2021-08-20] MEDS ORDERED: LISI5TAB20 PO (12:22)
[2021-08-20] MEDS ORDERED: POTA10TA37 PO (12:22)
[2021-08-20] MEDS ORDERED: CYCL10TA25 PO (12:22)
[2021-08-20] MEDS ORDERED: ATOR20TA66 PO (12:22)
[2021-08-20] MEDS ORDERED: ROPI1TAB PO ×2 (12:22)
[2021-08-20] MEDS ORDERED: OXYC5TAB PO (12:26)
[2021-08-20] MEDS: CYCLOBENZAPRINE 10 MG (FLEXERIL) TAB PO PRN ×2 (14:18→20:00)
[2021-08-20] MEDS: HYDROCORTISONE 100 MG/2 ML (Solu-CORTEF) VIAL IV SCH ×2 (14:20→21:32)
--- NOTE | 2021-08-20 14:32 | Physical Therapy Evaluation ---
PT Evaluation-General Medical Diagnosis Admission Date Aug 19, 2021 at 13:25 Medical Diagnosis: hypotension/right LE pain/UTI Onset Date: Aug 19, 2021 Therapy Diagnosis Therapy Diagnosis: generalized weakness/debility Height/Weight Height (Feet): 5 Height (Inches): 4.00 Weight (Pounds): 267 Weight (Ounces): 7.0 Precautions Precautions/Isolations: Fall Prevention, Standard Precautions Referral Physician: Teresa Reason for Referral: Evaluation/Treatment Medical History Additional Medical History morbid obesity Current History EMS secondary to fall at home (s/p right TKR 08/12/21 Dr. Kebede at [facility]; dismissed to home with home health 08/15/21) Reviewed History: Yes Social History Home: Single Level Current Living Status: Spouse Prior Prior Level of Function SCALE: Activities may be completed with or without assistive devices. 3-Ymwhnskpwv-qkoqljr completes the activity by him/herself with no assistance from a helper. 5-Set-up or Clean-up Assistance-helper sets up or cleans up; patient completes activity. [place] assists only prior to or following the activity. 4-Supervision or Touching Assistance-helper provides verbal cues and/or touching/steadying and/or contact guard assistance as patient completes activity. Assistance may be provided throughout the activity or intermittently. 3-Partial/Moderate Assistance-helper does LESS THAN HALF the effort. [place] lifts, holds or supports trunk or limbs, but provides less than half the effort. 2-Substantial/Maximal Assistance-helper does MORE THAN HALF the effort. [place] lifts or holds trunk or limbs and provides more than half the effort. 0-Ujhvzpdmf-lrurkg does ALL the effort. Patient does none of the effort to complete the activity. Or, the assistance of 2 or more helpers is required for the patient to complete the activity. If activity was not attempted, code reason: 7-Patient Refused. 9-Not Applicable-not attempted and the patient did not perform the activity before the current illness, exacerbation or injury. 10-Not Attempted due to Environmental Limitations-(lack of equipment, weather restraints, etc.). 88-Not Attempted due to Medical Conditions or Safety Concerns. Bed Mobility: 6 Transfers (B,C,W/C): 6 Gait: 6 Stairs: 6 Indoor Mobility (Ambulation): Independent Stairs: Independent Prior Devices Use: Walker PT Evaluation-Current Subjective Patient very tearful and yelling with muscle spasms right LE. Pain Numeric Pain Scale: 10-Worst Possible Pain Location: Right Location Body Site: Knee Pain Description: Acute, Cramping Comment: pain pill issued prior to PT Objective Patient Orientation: Normal For Age Attachments: Gordon Catheter, IV ROM/Strength ROM Lower Extremities right LE limited by pain and resistance/left LE WFL Strength Lower Extremities right LE 3-/5 grossly;left LE 4/5 grossly Integumentary/Posture Integumentary refer to nursing notes Bladder Incontinence: Gordon Cath Posture WFL Neuromuscular (Tone, Coordination, Reflexes) grossly intact Sensory Vision: Functional Hearing: Functional Sensation Right Lower Extremit: Intact Sensation Left Lower Extremity: Intact Transfers Lying to Sitting/Side of Bed(Q: 3 Sit to Stand (QC): 2 Chair/Eya-ak-Uwlgz Xfer(QC): 2 Gait Does the Patient Walk?: No and Walking Goal IS indicated Mode of Locomotion: Walk Anticipated Mode of Locomotion: Walk Distance: 5 small steps to recliner Gait Assistive Device: FWW Balance Sitting Static: Normal Sitting Dynamic: Normal Standing Static: Fair Standing Dynamic: Fair Treatment attempted ROM right LE with patient resisting due to pain. Able to perform SLR, AP and QS with minimal HS flexion Assessment/Needs 71 y.o. female, will benefit from skilled PT to address functional strength and mobility to improve current LOF. Patient is currently limited by right knee pain and medical status. Patient is very emotional. Patient up in recliner with needs met. Rehab Potential: Fair PT Shelter Goals Computer Assistant Goals PT Computer Assistant Goals Time Frame: Aug 31, 2021 Roll Left & Right (QC): 4 Sit to Lying (QC): 4 Lying-Sitting on Side/Bed(QC): 4 Sit to Stand (QC): 4 Chair/Ebq-kb-Ssgwg Xfer(QC): 4 Toilet Transfer (QC): 4 Walk 10 feet (QC): 4 Walk 50ft with 2 Turns (QC): 4 Walk 150 ft (QC): 4 PT Plan Problem List Problem List: Activity Tolerance, Functional Strength, Safety, Balance, Gait, Transfer, Bed Mobility Treatment/Plan Treatment Plan: Continue Plan of Care Treatment Plan: Bed Mobility, Education, Functional Activity Ladan, Functional Strength, Gait, Safety, Therapeutic Exercise, Transfers Treatment Duration: Aug 31, 2021 Frequency: 11 times per week Estimated Hrs Per Day: .5 hour per day Time/GCodes Time In: 1250 Time Out: 1322 Total Billed Treatment Time: 32 Total Billed Treatment 1 visit EVErlindaC 14 min FA 18 min ANGELINA MARTINEZ PT Aug 20, 2021 14:32
--- NOTE | 2021-08-20 15:07 | Occupational Therapy Eval ---
OT Evaluation-General/PLF Medical Diagnosis Admission Date Aug 19, 2021 at 13:25 Medical Diagnosis: hypotension/right LE pain/UTI Onset Date: Aug 19, 2021 Therapy Diagnosis Therapy Diagnosis: reduced adl status Height/Weight Height (Feet): 5 Height (Inches): 4.00 Weight (Pounds): 267 Weight (Ounces): 7.0 Precautions Precautions/Isolations: Fall Prevention, Standard Precautions Referral Physician: Teresa Referral Reason: Evaluation/Treatment Medical History Pertinent Medical History: HTN Additional Medical History R TKR 08/12/21 at [facility]. Current History Pt arrived to ER post fall at home. She reports being s/p R TKR on 08/12/21 at [facility]. She was sent home with Home health on 08/15/21. Per patient, she lives with her spouse in a single story home. She needed assist with adls and iadls post surgery but was independent prior to knee surgery. She uses a walker post TKR, was not using any AD prior. Pt reports the plan is to discharge to [facility] as her spouse is unable to provide the care she needs. Reviewed History: Yes Social History Home: Single Level Current Living Status: Spouse ADL-Prior Level of Function SCALE: Activities may be completed with or without assistive devices. 9-Mfpuagiwee-pyvvhbs completes the activity by him/herself with no assistance from a helper. 5-Set-up or Clean-up Assistance-helper sets up or cleans up; patient completes activity. [place] assists only prior to or following the activity. 4-Supervision or Touching Assistance-helper provides verbal cues and/or touching/steadying and/or contact guard assistance as patient completes activity. Assistance may be provided throughout the activity or intermittently. 3-Partial/Moderate Assistance-helper does LESS THAN HALF the effort. [place] lifts, holds or supports trunk or limbs, but provides less than half the effort. 2-Substantial/Maximal Assistance-helper does MORE THAN HALF the effort. [place] lifts or holds trunk or limbs and provides more than half the effort. 6-Zkjooaenu-qwxgkj does ALL the effort. Patient does none of the effort to complete the activity. Or, the assistance of 2 or more helpers is required for the patient to complete the activity. If activity was not attempted, code reason: 7-Patient Refused. 9-Not Applicable-not attempted and the patient did not perform the activity before the current illness, exacerbation or injury. 10-Not Attempted due to Environmental Limitations-(lack of equipment, weather restraints, etc.). 88-Not Attempted due to Medical Conditions or Safety Concerns. Self Care: Needed Some Help Functional Cognition: Independent OT Current Status Subjective Pt reports catheter leaking at OT arrival. RN notified at end of session. Appearance Pt returned to sitting in recliner, all needs within reach, OVERHAULER and RN notified. Mental Status/Objective Patient Orientation: Person, Place, Situation Attachments: Sutton Catheter, IV, Telemetry Current Hearing Aids: No Dentures/Partials: No Hand Dominance: Right Upper Extremity ROM WNL Upper Extremity Strength 3+/5 throughout ADL-Treatment Eating (QC): 6 Lower Body Dressing (QC): 1 (per clinical judgment) On/Off Footwear (QC): 1 Toileting Hygiene (QC): 1 (sutton catheter) Pt sitting in chair at OT arrival. Catheter leaking. Pt exhibits difficulty with adducting legs in order to wash upper thighs/lee ann area, assist required. Depend ent to don/doff bilateral socks secondary to pain, poor flexibility and body habitus. She was able to lift buttocks off chair with extra time but required max lifting assist in order to come to full upright. Poor standing tolerance secondary to c/o 10/10 knee pain. Anticipate 1-2 person assist with clothing management at this time. Education OT Patient Education: Correct positioning, Modified ADL techniques, Purpose of tx/functional activities, Reviewed precautions, Safety issues, Transfer techniques Teaching Recipient: Patient Teaching Methods: Demonstration, Discussion Response to Teaching: Verbalize Understanding, Reinforcement Needed OT Industrial Relations Officer Goals Industrial Relations Officer Goals Time Frame: September 06, 2021 Oral Hygiene (QC): 5 Toileting Hygiene (QC): 4 Shower/Bathe Self (QC): 3 Upper Body Dressing (QC): 5 Lower Body Dressing (QC): 4 On/Off Footwear (QC): 3 1=Demonstrate adherence to instructed precautions during ADL tasks. 2=Patient will verbalize/demonstrate understanding of assistive devices/rula fications for ADL. 3=Patient will improve strength/tolerance for activity to enable patient to perform ADL's. OT Education/Plan Problem List/Assessment Assessment: Decreased Activ Tolerance, Decreased UE Strength, Dependent Transfers, Impaired Funct Balance, Impaired I ADL's, Impaired Self-Care Skills Discharge Recommendations Plan/Recommendations: Continue POC Therapy Discharge Recommendati: Post Acute OT (SNF) Treatment Plan/Plan of Care Treatment,Training & Education: Yes Patient would benefit from OT for education, treatment and training to promote independence in ADL's, mobility, safety and/or upper extremity function for ADL's. Plan of Care: ADL Retraining, Functional Mobility, Group Exercise/Act as Ind, UE Funct Exercise/Act Treatment Duration: September 06, 2021 Frequency: 3 times per week (3-5x/week) Estimated Hrs Per Day: .25 hour per day Rehab Potential: Guarded Time/GCodes Start Time: 14:44 Stop Time: 14:57 Total Time Billed (hr/min): 13 Billed Treatment Time 1 visit Aurora Norman OT Aug 20, 2021 15:07
[2021-08-20 16:15] LABS: HEMOGLOBIN 8.1 g/dL (11.5-16.0)
--- NOTE | 2021-08-20 17:38 | Consultation-Cardiology ---
HPI-Cardiology Cardiology Consultation: Date of Consultation 08/20/21 Date of Admission 08/19/21 Attending Physician Estela Ely DO Admitting Physician Matias Blanc MD Consulting Physician MATIAS SMITH JR, MD HPI: Time Seen by a Provider: 18:18 Chief Complaint: Reason for consultation: Shock. I had the pleasure of seeing Rubina in the intensive care unit at [facility] in [place], [place] today. She has no known history of coronary artery disease. She does have cardiac risk factors of hypertension and hyperlipidemia. She had a right total knee replacement approximately 5 days ago. Yesterday she was at home and was walking with her walker and tried to take a turn and somehow lost her footing and fell to the floor. She then had pain in her right knee and was brought to the hospital for further evaluation. She was initially admitted to the cardiac stepdown unit but then developed severe hypotension and was transferred to the intensive care unit and started on norepinephrine infusion. When I saw her the norepinephrine was in the process of being weaned off. She tells me that she has had problems with low blood pressures in the past, particularly following surgical procedures. When she fell yesterday, she denies any lightheadedness or syncope. She denies chest discomfort, dyspnea at rest, palpitations, paroxysmal nocturnal dyspnea or orthopnea. She has chronic, bilateral lower extremity edema which has been unchanged. Because of the low blood pressure, a cardiology consultation was requested. Certain portions of this document may have been dictated utilizing voice recognition technology. Inherent to this technology, typographical and grammatical errors may exist. As much as I am diligent to identify and correct these mistakes, some errors may remain in the document. Review of Systems-Cardiology Review of Systems Other comments Review of 10 organ systems is as per the history of present illness, otherwise negative. All Other Systems Reviewed Negative Unless Noted: Yes (Negative excepted noted.) [id number] Hx Patient Social History Marrital Status: Employed/Student: retired Smoking Status: Unknown if Ever Smoked Have you traveled recently?: No Alcohol Use?: No Pt feels they are or have been: No Immunizations Up To Date Date of Pneumonia Vaccine: May 10, 2014 Date of Influenza Vaccine: Apr 14, 2016 Past Medical History PMH As described under Assessment. Family Medical History Family Medical History: The patient does not know of any family history of premature coronary artery disease in first-degree relatives. Allergies and Home Medications Allergies Coded Allergies: Tetracyclines (Verified Allergy, Unknown, high doses cause stomach pain, 04/16/16) pregabalin (Verified Allergy, Unknown, 04/16/16) Patient Home Medication List Home Medication List Reviewed: Yes Albuterol Sulfate (Proventil Hfa) 6.7 Gm Hfa.aer.ad, 2 PUFF IH Q4H PRN for SHORTNESS OF BREATH, (Reported) Entered as Reported by: YARELIS PINTO on 04/16/16 1247 Last Action: Reviewed Atorvastatin Calcium (Atorvastatin Calcium) 20 Mg Tablet, 20 MG PO DAILY, (Reported) Entered as Reported by: AMRITA HEALY on 08/20/211221 Last Action: Reviewed Cyclobenzaprine HCl (Cyclobenzaprine HCl) 10 Mg Tablet, 10 MG PO TID PRN for MUSCLE SPASMS, (Reported) Entered as Reported by: AMRITA HEALY on 08/20/211221 Last Action: Reviewed Duloxetine HCl (Cymbalta) 60 Mg Capsule.dr, 60 MG PO BID, (Reported) Entered as Reported by: MAC ZAMUDIO on 10/09/15 1130 Last Action: Reviewed Furosemide (Furosemide) 40 Mg Tablet, 40 MG PO DAILY PRN for FLUID RETENTION, (Reported) Entered as Reported by: AMRITA HEALY on 08/20/211221 Last Action: Reviewed Gabapentin (Neurontin) 300 Mg Capsule, 300 MG PO DAILY, (Reported) Entered as Reported by: AMRITA HEALY on 08/20/211221 Last Action: Reviewed Hydrocodone/Acetaminophen (Hydrocodone-Acetamin 5-325 mg) 5 Mg-325 Mg Tablet, 1 TAB PO Q6H PRN for PAIN-MODERATE (5-7), (Reported) Entered as Reported by: AMRITA HEALY on 08/20/211221 Last Action: Reviewed Ibuprofen (Ibuprofen) 200 Mg Tablet, 800 MG PO Q8H PRN for PAIN-MILD (1-4), (Reported) Entered as Reported by: AMRITA HEALY on 08/20/211221 Last Action: Reviewed Levothyroxine Sodium (Levothyroxine Sodium) 150 Mcg Tablet, 150 MCG PO DAILY, (Reported) Entered as Reported by: AMRITA HEALY on 08/20/211221 Last Action: Reviewed Lisinopril (Lisinopril) 5 Mg Tablet, 5 MG PO DAILY, (Reported) Entered as Reported by: AMRITA HEALY on 08/20/211221 Last Action: Reviewed Oxycodone HCl (Oxycodone HCl) 5 Mg Tablet, 5-10 MG PO Q6H PRN for PAIN-SEVERE (8-10), (Reported) Entered as Reported by: AMRITA HEALY on 08/20/211225 Last Action: Reviewed Potassium Chloride (Potassium Chloride) 10 Meq Tab.er.prt, 10 MEQ PO BID PRN for WHEN TAKING A FUROSEMIDE DOSE, (Reported) Entered as Reported by: AMRITA HEALY on 08/20/211221 Last Action: Reviewed Ropinirole HCl (Ropinirole HCl) 1 Mg Tablet, 1 MG PO DAILY, (Reported) Entered as Reported by: AMRITA HEALY on 08/20/211221 Last Action: Reviewed Ropinirole HCl (Ropinirole HCl) 1 Mg Tablet, 2 MG PO HS, (Reported) Entered as Reported by: AMRITA HEALY on 08/20/211221 Last Action: Reviewed Tramadol HCl (Tramadol HCl) 50 Mg Tablet, 50-100 MG PO Q6H PRN for PAIN-MODERATE (5-7), (Reported) Entered as Reported by: AMRITA HEALY on 08/20/211221 Last Action: Reviewed Discontinued Medications Cephalexin (Cephalexin) 500 Mg Capsule, 1 CAP PO TID Discontinued Reason: No Longer Taking Prescribed by: JOHNSON FUNES on 05/02/16 7908 Last Action: Discontinued Cholecalciferol (Vitamin D3) (Vitamin D3) 1,000 Unit Capsule, 2,000 UNIT PO DAILY, (Reported) Discontinued Reason: No Longer Taking Entered as Reported by: YARELIS PINTO on 04/16/16 1247 Last Action: Discontinued Diclofenac Sodium (Diclofenac Sodium) 75 Mg Tablet.dr, 75 MG PO BID, (Reported) Discontinued Reason: No Longer Taking Entered as Reported by: YARELIS PINTO on 04/16/16 1247 Last Action: Discontinued Furosemide (Furosemide) 20 Mg Tablet, 20 MG PO DAILY, (Reported) Discontinued Reason: No Longer Taking Entered as Reported by: MAC ZAMUDIO on 10/09/15 1130 Last Action: Discontinued Hydrocodone Bit/Acetaminophen (Lortab 7.5 Mg Tablet) 1 Each Tablet, 1 EACH PO BID PRN for PAIN, (Reported) Discontinued Reason: No Longer Taking Entered as Reported by: YARELIS PINTO on 04/16/161246 Last Action: Discontinued Levothyroxine Sodium (Levothyroxine Sodium) 125 Mcg Tablet, 125 MCG PO DAILY, (Reported) Discontinued Reason: No Longer Taking Entered as Reported by: YARELIS PINTO on 04/16/161246 Last Action: Discontinued Lorazepam (Lorazepam) 0.5 Mg Tablet, 0.5 MG PO BID PRN for ANXIETY, (Reported) Discontinued Reason: No Longer Taking Entered as Reported by: YARELIS PINTO on 04/16/161246 Last Action: Discontinued Multivits-Min/Iron/FA/Lutein (Centrum Silver Women Tablet) 1 Each Tablet, 1 EACH PO DAILY, (Reported) Discontinued Reason: No Longer Taking Entered as Reported by: YARELIS PINTO on 04/16/161246 Last Action: Discontinued Naproxen Sodium (Naproxen Sodium) 220 Mg Tablet, 220 MG PO BID, (Reported) Discontinued Reason: No Longer Taking Entered as Reported by: YARELIS PINTO on 04/16/161246 Last Action: Discontinued Oxycodone HCl/Acetaminophen (Percocet 5-325 mg Tablet) 1 Each Tablet, 1-2 EACH PO Q6H PRN for PAIN Discontinued Reason: No Longer Taking Prescribed by: TASHI ORTEGA on 05/02/16 1900 Last Action: Discontinued Pantoprazole Sodium (Pantoprazole Sodium) 40 Mg Tablet.dr, 40 MG PO DAILY, (Reported) Discontinued Reason: No Longer Taking Entered as Reported by: YARELIS PINTO on 04/16/161246 Last Action: Discontinued Ropinirole HCl (Ropinirole HCl) 1 Mg Tablet, 1-2 MG PO BID, (Reported) Discontinued Reason: No Longer Taking Entered as Reported by: YARELIS PINTO on 04/16/161246 Last Action: Discontinued Valsartan (Valsartan) 320 Mg Tablet, 160 MG PO DAILY, (Reported) Discontinued Reason: No Longer Taking Entered as Reported by: MAC ZAMUDIO on 10/09/15 1130 Last Action: Discontinued Exam Vital Signs Vital Signs Date Time Temp Pulse Resp B/P (MAP) Pulse Ox O2 Delivery O2 Flow Rate FiO2 08/20/21 17:42 79 107/56 08/20/21 16:00 37.1 08/20/21 15:00 15 100 Nasal Cannula 2.00 Physical Exam General: Alert. No acute distress. Well nourished and appears stated age. She is morbidly obese. Eye: Extraocular movements are intact. Conjunctivae are clear. There are no xanthelasma. HENT: Normocephalic. Atraumatic. Carotid pulsations 2/2 without bruits. Neck: Jugular venous pressure does not appear elevated. No thyromegaly appreciated. Respiratory: Lungs are clear to auscultation. Respirations are non-labored. Breath sounds are equal. Symmetrical chest wall expansion. Cardiovascular: Normal rate. Regular rhythm. No murmur. No gallop. Point of maximal impulse is not appear displaced. Good pulses equal in all extremities. 1+ bilateral pretibial edema without venous stasis changes. Gastrointestinal: Soft. Normal bowel sounds. Skin: Skin turgor is normal. There is no pallor. Musculoskeletal: No kyphosis or scoliosis appreciated. Neurologic: Alert and oriented to person, place, time. Cranial nerves 3-12 appear grossly intact. The patient has good motor tone strength in the upper and lower extremities bilaterally. Psychiatric: Cooperative. Appropriate mood & affect. Labs Laboratory Tests Test 08/19/21 20:32 08/20/21 04:22 08/20/21 04:42 08/20/21 10:37 Range/Units Glucometer 111 H 70-110 MG/DL White Blood Count 11.2 H 4.3-11.0 10^3/uL Red Blood Count 2.18 L 3.80-5.11 10^6/uL Hemoglobin 7.0 L 11.5-16.0 g/dL Hematocrit 21 L 35-52 % Mean Corpuscular Volume 96 80-99 fL Mean Corpuscular Hemoglobin 32 25-34 pg Mean Corpuscular Hemoglobin Concent 33 32-36 g/dL Red Cell Distribution Width 12.5 10.0-14.5 % Platelet Count 402 H 130-400 10^3/uL Mean Platelet Volume 10.0 9.0-12.2 fL Immature Granulocyte % (Auto) 2 % Neutrophils (%) (Auto) 64 42-75 % Lymphocytes (%) (Auto) 18 12-44 % Monocytes (%) (Auto) 14 H 0-12 % Eosinophils (%) (Auto) 3 0-10 % Basophils (%) (Auto) 0 0-10 % Neutrophils # (Auto) 7.2 1.8-7.8 10^3/uL Lymphocytes # (Auto) 2.0 1.0-4.0 10^3/uL Monocytes # (Auto) 1.5 H 0.0-1.0 10^3/uL Eosinophils # (Auto) 0.3 0.0-0.3 10^3/uL Basophils # (Auto) 0.1 0.0-0.1 10^3/uL Immature Granulocyte # (Auto) 0.2 H 0.0-0.1 10^3/uL Sodium Level 131 L 135-145 MMOL/L Potassium Level 4.2 3.6-5.0 MMOL/L Chloride Level 100 98-107 MMOL/L Carbon Dioxide Level 20 L 21-32 MMOL/L Anion Gap 11 5-14 MMOL/L Blood Urea Nitrogen 19 H 7-18 MG/DL Creatinine 0.81 0.60-1.30 MG/DL Estimat Glomerular Filtration Rate 78 BUN/Creatinine Ratio 23 Glucose Level 134 H 70-105 MG/DL Calcium Level 7.8 L 8.5-10.1 MG/DL Corrected Calcium 8.9 8.5-10.1 MG/DL Phosphorus Level 3.6 2.3-4.7 MG/DL Magnesium Level 1.7 1.6-2.4 MG/DL Total Bilirubin 0.9 0.1-1.0 MG/DL Aspartate Amino Transf (AST/SGOT) 17 5-34 U/L Alanine Aminotransferase (ALT/SGPT) 10 0-55 U/L Alkaline Phosphatase 77 40-136 U/L Total Protein 5.0 L 6.4-8.2 GM/DL Albumin 2.6 L 3.2-4.5 GM/DL Blood Gas Puncture Site LEFT RADIAL Blood Gas Patient Temperature 36.3 Arterial Blood pH 7.35 L 7.37-7.43 Arterial Blood Partial Pressure CO2 45 35-45 MMHG Arterial Blood Partial Pressure O2 41 L 79-93 MMHG Arterial Blood HCO3 24 23-27 MMOL/L Arterial Blood Total CO2 25.1 21.0-31.0 MMOL/L Arterial Blood Oxygen Saturation 78 L 94-100 % Arterial Blood Base Excess -1.4 -2.5-2.5 MMOL/L Fabian Test YES-POS Blood Gas Ventilator Setting NO Blood Gas Inspired Oxygen 3L Test 08/20/21 10:43 08/20/21 15:53 08/20/21 16:05 Range/Units Glucometer 122 H 178 H 70-110 MG/DL Hemoglobin 8.1 L 11.5-16.0 g/dL Hematocrit 25 L 35-52 % Radiology ECHOCARDIOGRAM 1. Left ventricle: The cavity size is normal. There is mild concentric hypertrophy. Systolic function is normal. The estimated ejection fraction is 55- 60%. There is paradoxical septal motion probably due to intraventricular condu ction delay. Features are consistent with a pseudonormal left ventricular filling pattern, with concomitant abnormal relaxation and increased filling pressure (grade 2 diastolic dysfunction). 2. Right atrium: The right atrium is mildly dilated at 22 cm. 3. Pulmonary arteries: The estimated pulmonary artery systolic pressure is 34 mmHg assuming a right atrial pressure of 5 mmHg. ECG Impression ECG Comment Sinus rhythm with low voltage in the precordial leads, left anterior hemiblock and right bundle branch block. Diagnosis/Problems Diagnosis/Problems (1) Shock Assessment & Plan: She is currently on norepinephrine infusion but this is being weaned off. Her echocardiogram did not show any significant structural heart disease to explain hypotension or shock. The exact etiology of the shock is unclear. She does not have significant anemia. Some of this could be related to her chronic history of orthostatic hypotension. I will continue to wean off the norepinephrine and hold all antihypertensive medications. (2) Orthostatic hypotension Status: Chronic Assessment & Plan: She tells me she has a long history of orthostatic hypotension but despite this, takes antihypertensive medication at home. We will proceed as above. (3) Primary hypertension Status: Chronic Assessment & Plan: As above, due to the current shock, all antihypertensive medications are on hold. (4) Mixed hyperlipidemia Status: Chronic Assessment & Plan: I have ordered her atorvastatin. (5) Morbid obesity Status: Chronic Assessment & Plan: She needs to work on weight loss. MATIAS SMITH JR, MD Aug 20, 2021 17:38
[2021-08-20] MEDS: morphine INJ 4 MG/ML 1 ML (VIAL/SYRINGE) IV PRN (17:52)
[2021-08-20] MEDS: CEFEPIME INJECTION 1,000 MG in NS (IVPB) 50 ML IV SCH (20:00)
[2021-08-20] MEDS ORDERED: KETOROLAC 15 MG/ML VIAL IVP PRN (20:00)
[2021-08-20] MEDS: rOPINIRole 1 MG (REQUIP) TABLET PO SCH (21:32)
[2021-08-20] MEDS: DULoxetine 30 MG (CYMBALTA) CAP PO SCH (21:33)
[2021-08-21] MEDS: NS IV 1000 ML 1,000 ML IV SCH ×2 (02:19→06:12)
[2021-08-21] MEDS: CEFEPIME INJECTION 1,000 MG in NS (IVPB) 50 ML IV SCH ×2 (02:20→08:33)
[2021-08-21 04:12] LABS: BASOPHILS % (AUTO) 0 % (0-10); EOSINOPHILS % (AUTO) 0 % (0-10); HEMATOCRIT 21 % (35-52); HEMOGLOBIN 7.1 g/dL (11.5-16.0); LYMPHOCYTES % (AUTO) 9 % (12-44); MEAN CORPUSCULAR HEMOGLOBIN 31 pg (25-34); MEAN CORPUSCULAR HGB CONC 34 g/dL (32-36); MEAN CORPUSCULAR VOLUME 93 fL (80-99); MEAN PLATELET VOLUME 9.7 fL (9.0-12.2); MONOCYTES # (AUTO) 0.7 10^3/uL (0.0-1.0); MONOCYTES % (AUTO) 6 % (0-12); NEUTROPHILS # (AUTO) 8.9 10^3/uL (1.8-7.8); NEUTROPHILS % (AUTO) 83 % (42-75); PLATELET COUNT 346 10^3/uL (130-400); WHITE BLOOD COUNT 10.7 10^3/uL (4.3-11.0)
[2021-08-21 04:20] LABS: ALBUMIN 2.7 GM/DL (3.2-4.5); POTASSIUM 4.3 MMOL/L (3.6-5.0)
[2021-08-21 04:21] LABS: CALCIUM 8.3 MG/DL (8.5-10.1)
[2021-08-21] MEDS: NOREPINEPHRINE 8 MG/250 ML 250 ML IV SCH (04:21)
[2021-08-21 04:23] LABS: TOTAL PROTEIN 5.1 GM/DL (6.4-8.2)
[2021-08-21 04:24] LABS: BILIRUBIN,TOTAL 0.8 MG/DL (0.1-1.0)
[2021-08-21 04:26] LABS: CREATININE SERUM 0.74 MG/DL (0.60-1.30); PHOSPHORUS 2.7 MG/DL (2.3-4.7)
[2021-08-21] MEDS: POTASSIUM CL 10MEQ/50ML IVPB 50 ML IV SCH (05:32)
[2021-08-21] MEDS: MAGNESIUM 1 GM/100 ML IVPB 100 ML IV SCH (05:33)
[2021-08-21] MEDS: KCL 20 MEQ TAB (K-DUR) PO SCH (05:33)
[2021-08-21] MEDS: HYDROCORTISONE 100 MG/2 ML (Solu-CORTEF) VIAL IV SCH (05:41)
[2021-08-21] MEDS: inSUlin ASPART (NovoLOG) 1 UNIT/0.01 ML (CHARGE PER UNIT) SC SCH ×4 (05:41→21:19)
[2021-08-21 06:07] LABS: ABG BASE EXCESS -1.9 MMOL/L (-2.5-2.5); ABG OXYGEN SATURATION 98 % (94-100); ABG PCO2 39 MMHG (35-45); ABG PH 7.38 (7.37-7.43); ABG PO2 74 MMHG (79-93); ABG TCO2 23.8 MMOL/L (21.0-31.0)
[2021-08-21 06:08] LABS: ALLENS TEST YES-POS; INSPIRED O2 3L; PATIENT TEMP 36.3; VENTILATOR NO
--- NOTE | 2021-08-21 06:41 | Diagnostic Imaging Report ---
Indication: Elevated white count. Comparison 08/20/2021. FINDINGS: Right jugular line remains unchanged. Lungs remain well-aerated and clear. Heart is not enlarged. No pulmonary edema. No pneumothorax or pleural effusion. IMPRESSION: No acute changes when compared with previous exam. Dictated by: Dictated on workstation # [id number]
--- NOTE | 2021-08-21 07:23 | Progress Note - Surgery ---
ERASTO PRADO 08/21/21 0723: Subjective Date Seen by a Provider: Aug 21, 2021 Time Seen by a Provider: 07:00 Subjective/Events-last exam Ms. Avina is being followed for possible compartment syndrome s/p fall. This morning she reports she is doing well and that her pain in her leg is a 4/10; yesterday it was an 8/10. She is able to wiggle her toes and move her right leg. She reports she is eating a normal diet. She has been off pressors since around 1999 yesterday and her blood pressure is steady this morning. A CXR this morning shows no acute changes. She was seen by Dr. Caba yesterday who agreed that compartment syndrome is unlikely. She still endorses pins and needles in her leg that have been going on since her fall. Review of Systems General: Chills; No Fatigue Pulmonary: No Dyspnea, No Cough Cardiovascular: No: Chest Pain, Palpitations Gastrointestinal: No: Nausea, Vomiting, Abdominal Pain Musculoskeletal: leg pain, foot pain Neurological: No: Weakness, Confusion Focused Exam Lactate Level 08/19/21 12:27: Lactic Acid Level 1.42 Objective Exam Vital Signs Date Time Temp Pulse Resp B/P (MAP) Pulse Ox O2 Delivery O2 Flow Rate FiO2 08/21/21 05:00 67 19 111/72 97 Room Air 08/21/21 04:00 94 Room Air 08/21/21 04:00 68 26 110/58 89 Room Air 08/21/21 03:00 64 20 97/54 96 Room Air 08/21/21 02:00 77 111/66 100 Room Air 08/21/21 01:00 73 08/21/21 01:00 73 35 107/56 95 Room Air 08/21/21 00:00 95 Room Air 08/21/21 00:00 75 21 124/65 97 Room Air 08/20/21 23:00 79 19 102/61 97 Room Air 08/20/21 22:18 96 Room Air 08/20/21 22:00 72 22 116/61 97 Room Air 08/20/21 21:00 82 26 133/68 99 Room Air 08/20/21 20:00 98 Room Air 08/20/21 20:00 82 18 138/73 98 Room Air 08/20/21 19:30 37.0 08/20/21 19:00 76 22 113/54 96 Room Air 08/20/21 19:00 76 08/20/21 18:00 80 94/53 08/20/21 17:42 79 107/56 08/20/21 17:00 77 103/54 97 Nasal Cannula 2.00 08/20/21 16:00 71 105/68 97 Nasal Cannula 2.00 08/20/21 16:00 37.1 08/20/21 15:00 79 15 107/56 100 Nasal Cannula 2.00 08/20/21 14:00 90 16 117/77 98 Nasal Cannula 2.00 08/20/21 13:00 84 11 106/57 100 Nasal Cannula 2.00 08/20/21 13:00 85 08/20/21 12:20 36.7 83 14 101/51 100 Room Air 08/20/21 12:00 82 11 102/52 99 Nasal Cannula 2.00 08/20/21 12:00 37.4 08/20/21 11:00 84 20 108/60 95 Nasal Cannula 2.00 08/20/21 10:00 85 22 77/50 95 Nasal Cannula 2.00 08/20/21 09:54 37.2 08/20/21 09:15 37.3 87 18 103/57 96 Room Air 08/20/21 09:10 37.2 84 18 110/56 96 Room Air 08/20/21 09:01 37.2 78 15 109/59 95 Room Air 08/20/21 09:00 80 110/56 94 Nasal Cannula 2.00 08/20/21 08:57 37.2 78 15 103/62 95 Room Air 08/20/21 08:40 37.8 08/20/21 08:24 37.8 84 18 108/46 100 Room Air 08/20/21 08:00 83 9 97/49 98 Nasal Cannula 2.00 08/20/21 07:42 37.3 I & O 08/21/21 07:00 Intake Total 4234 ml Output Total 5250 ml Balance -1016 ml Capillary Refill : Less Than 3 Seconds General Appearance: No Apparent Distress, Obese HEENT: PERRL/EOMI; No Scleral Icterus (L), No Scleral Icterus (R) Neck: Non Tender, Supple; No Lymphadenopathy (L), No Lymphadenopathy (R) Respiratory: Chest Non Tender, No Accessory Muscle Use, No Respiratory Distress, Crackles (Anterior) Cardiovascular: Regular Rate, Rhythm, No Murmur, Normal Peripheral Pulses Peripheral Pulses: 2+ Dorsalis Pedis (R), 2+ Left Dors-Pedis (L), 2+ Radial Pulses (R), 2+ Radial Pulses (L) Gastrointestinal: normal bowel sounds, non tender, soft Extremity: Pedal Edema, Swelling (of R knee and R miller ), Other (surgical incision dressed, clean and dry ) Neurologic/Psychiatric: Alert, Oriented x3 Skin: Normal Color, Warm/Dry Lymphatic: No Adenopathy (Head and neck) Results Lab Laboratory Tests 08/20/21 10:37: Total Cortisol 7.0 08/20/21 10:43: Glucometer 122H 08/20/21 15:53: Glucometer 178H 08/20/21 16:05: Hemoglobin 8.1L, Hematocrit 25L 08/20/21 21:02: Glucometer 159H 08/21/21 04:00: White Blood Count 10.7, Red Blood Count 2.28L, Hemoglobin 7.1L, Hematocrit 21L, Mean Corpuscular Volume 93, Mean Corpuscular Hemoglobin 31, Mean Corpuscular Hemoglobin Concent 34, Red Cell Distribution Width 13.0, Platelet Count 346, Mean Platelet Volume 9.7, Immature Granulocyte % (Auto) 2, Neutrophils (%) (Auto) 83H, Lymphocytes (%) (Auto) 9L, Monocytes (%) (Auto) 6, Eosinophils (%) (Auto) 0, Basophils (%) (Auto) 0, Neutrophils # (Auto) 8.9H, Lymphocytes # (Auto) 1.0, Monocytes # (Auto) 0.7, Eosinophils # (Auto) 0.0, Basophils # (Auto) 0.0, Immature Granulocyte # (Auto) 0.2H, Sodium Level 136, Potassium Level 4.3, Chloride Level 105, Carbon Dioxide Level 19L, Anion Gap 12, Blood Urea Nitrogen 13, Creatinine 0.74, Estimat Glomerular Filtration Rate 87, BUN/Creatinine Ratio 18, Glucose Level 156H, Calcium Level 8.3L, Corrected Calcium 9.3, Phosphorus Level 2.7, Magnesium Level 2.0, Total Bilirubin 0.8, Aspartate Amino Transf (AST/SGOT) 13, Alanine Aminotransferase (ALT/SGPT) 13, Alkaline Phosphatase 79, Total Protein 5.1L, Albumin 2.7L 08/21/21 05:50: Blood Gas Puncture Site L RAD, Blood Gas Patient Temperature 36.3, Arterial Blood pH 7.38, Arterial Blood Partial Pressure CO2 39, Arterial Blood Partial Pressure O2 74L, Arterial Blood HCO3 23, Arterial Blood Total CO2 23.8, Arterial Blood Oxygen Saturation 98, Arterial Blood Base Excess -1.9, Fabian Test YES-POS, Blood Gas Ventilator Setting NO, Blood Gas Inspired Oxygen 3L Microbiology 08/19/21 MRSA Screen - Final, Complete MRSA not isolated 08/19/21 Blood Culture - Preliminary, Resulted No growth 08/19/21 Urine Culture - Preliminary, Resulted Escherichia coli Assessment/Plan Assessment/Plan Assessment/Plan Assessment: RLE pain r/o compartment syndrome - dorsalis pedis pulse in tact - sensation intact - s/p R total knee replacement Severe hypotension - 111/72 this morning - Weaned off pressors Lung crackles - Anteriorly - No acute changes on CXR Leukocytosis - Trending down - monitor Hyponatremia , resolved - 136 this morning UTI Chronic Anemia Fall Obesity Plan: Continue IVF and monitor BP, restart pressors if needed Monitor for suspicious sepsis. Continue on IV cefepime therapy. Blood cultures. Continue to monitor neurovascular status Will have nursing continue to monitor/measure leg Pain control and supportive measures as needed Consider ICS and encourage ambulation to help prevent atelectasis/pneumonia WAGNER CONNER DO 08/21/21 1150: Subjective Subjective/Events-last exam Pressors off last night. No significant pain in right leg, continues to improve. No significant change in diameter of leg. Denies any new complaints. Denies n/v fever sweats chills shortness of breath or chest pain. Objective Exam General Appearance: No Apparent Distress, Obese HEENT: PERRL/EOMI, Normal ENT Inspection Neck: Non Tender, Supple Respiratory: Chest Non Tender, No Accessory Muscle Use, No Respiratory Distress Cardiovascular: Regular Rate, Rhythm, No JVD Gastrointestinal: non tender, soft Extremity: Pedal Edema, Swelling (Right lower extremity around knee, with areas of echymosis, ), Other (surgical incision dressed, clean and dry ) Neurologic/Psychiatric: Alert, Oriented x3 Skin: Normal Color, Warm/Dry, Ecchymosis Lymphatic: No Adenopathy (Head and neck) Assessment/Plan Assessment/Plan Assessment/Plan Fall RLE pain r/o compartment syndrome s/p R total knee replacement - dorsalis pedis pulse in tact - sensation intact Severe hypotension - 111/72 this morning - Weaned off pressors Leukocytosis - Trending down - monitor Hyponatremia , resolved - 136 this morning UTI Chronic Anemia Obesity Continue IVF and monitor BP, restart pressors if needed Monitor for suspicious sepsis. Continue on IV cefepime therapy. Blood cultures. Continue to monitor neurovascular status Will have nursing continue to monitor/measure leg Pain control and supportive measures as needed Consider ICS and encourage ambulation to help prevent atelectasis/pneumonia No general surgical needs at this time will sign off, call if needed. Supervisory-Addendum Brief Verification & Attestation Participated in pt care: history, MDM, physical Personally performed: exam, history, MDM, supervision of care Care discussed with: Medical Student Procedures: n/a Results interpretation: Verified all documentation Verification and Attestation of Medical Student E/M Service A medical student performed and documented this service in my presence. I reviewed and verified all information documented by the medical student and made modifications to such information, when appropriate. I personally performed the physical exam and medical decision making. Wagner Conner, Aug 21, 2021,11:50 ERASTO PRADO Aug 21, 2021 07:23 WAGNER CONNER DO Aug 21, 2021 11:50
[2021-08-21 08:25] VITALS: BP 98/54
[2021-08-21] MEDS: LEVOTHYROXINE 150 MCG (LEVOTHROID) TAB PO SCH (08:33)
--- NOTE | 2021-08-21 09:37 | Physical Therapy Daily Note ---
PT Daily Note-Current Subjective Patient in bed pre tx, agrees to PT, has 7/10 pain in right knee. Appearance Patient in recliner post tx with nurse call, phone, tray, all needs met. Mental Status Patient Orientation: Person, Place, Situation Attachments: Gordon Catheter, IV Transfers SCALE: Activities may be completed with or without assistive devices. 5-Cpcuucsnav-pajqajs completes the activity by him/herself with no assistance from a helper. 5-Set-up or Clean-up Assistance-helper sets up or cleans up; patient completes activity. [place] assists only prior to or following the activity. 4-Supervision or Touching Assistance-helper provides verbal cues and/or touching/steadying and/or contact guard assistance as patient completes activity . Assistance may be provided throughout the activity or intermittently. 3-Partial/Moderate Assistance-helper does LESS THAN HALF the effort. [place] lifts, holds or supports trunk or limbs, but provides less than half the effort. 2-Substantial/Maximal Assistance-helper does MORE THAN HALF the effort. [place] lifts or holds trunk or limbs and provides more than half the effort. 8-Yctuazuuq-zsdfju does ALL the effort. Patient does none of the effort to complete the activity. Or, the assistance of 2 or more helpers is required for the patient to complete the activity. If activity was not attempted, code reason: 7-Patient Refused. 9-Not Applicable-not attempted and the patient did not perform the activity before the current illness, exacerbation or injury. 10-Not Attempted due to Environmental Limitations-(lack of equipment, weather restraints, etc.). 88-Not Attempted due to Medical Conditions or Safety Concerns. Lying to Sitting/Side of Bed(Q: 3 Sit to Stand (QC): 4 Chair/Oyk-yy-Ixnaf Xfer(QC): 4 cues for hand placement and safety Gait Training Distance: 15' Walk 10 feet (QC): 4 Gait Persons Needed: 1 Gait Assistive Device: FWW slow, antalgic, step-to gait pattern Exercises Seated Therapy Exercises: Ankle pumps, Long arc quads Seated Reps: 20 Treatments bed mobility and transfers, ambulation, LE strengthening Assessment Current Status: Fair Progress slightly improved general mobility PT Vat Cleaner Goals Vat Cleaner Goals PT Usp Goals Time Frame: Aug 31, 2021 Roll Left & Right (QC): 4 Sit to Lying (QC): 4 Lying-Sitting on Side/Bed(QC): 4 Sit to Stand (QC): 4 Chair/Hot-qi-Ygytd Xfer(QC): 4 Toilet Transfer (QC): 4 Walk 10 feet (QC): 4 Walk 50ft with 2 Turns (QC): 4 Walk 150 ft (QC): 4 PT Plan Problem List Problem List: Activity Tolerance, Functional Strength, Safety, Balance, Gait, Transfer, Bed Mobility, ROM Treatment/Plan Treatment Plan: Continue Plan of Care Treatment Plan: Bed Mobility, Education, Functional Activity Ladan, Functional Strength, Gait, Safety, Therapeutic Exercise, Transfers Treatment Duration: Aug 31, 2021 Frequency: 11 times per week Estimated Hrs Per Day: .5 hour per day Safety Risks/Education Patient Education: Gait Training, Transfer Techniques, Correct Positioning, Safety Issues Teaching Recipient: Patient Teaching Methods: Demonstration, Discussion Response to Teaching: Reinforcement Needed Time/GCodes Time In: 0823 Time Out: 0837 Total Billed Treatment Time: 14 Total Billed Treatment 1 visit FA Betito' VONDA LEE PT Aug 21, 2021 09:37
[2021-08-21] MEDS: DULoxetine 30 MG (CYMBALTA) CAP PO SCH ×2 (09:53→21:19)
[2021-08-21] MEDS: SENNOSIDES 8.6 MG (SENOKOT) TAB PO SCH ×2 (09:53→21:18)
[2021-08-21] MEDS: rOPINIRole 1 MG (REQUIP) TABLET PO SCH ×2 (09:53→21:18)
[2021-08-21] MEDS: DOCUSATE SODIUM 100 MG (COLACE) CAP PO SCH ×2 (09:54→21:18)
[2021-08-21] MEDS: GABAPENTIN 300 MG (NEURONTIN) CAP PO SCH (09:54)
--- NOTE | 2021-08-21 10:41 | Tele-ICU Progress Note ---
Subjective Date Seen by a Provider: Aug 21, 2021 Time Seen by a Provider: 10:40 Subjective/Events-last exam (Tele-ICU Physician , Progress Note ) Available chart/ vitals / labs / Images reviewed Video assessment done using teleICU camera, rest of exam as per RN Discussed with RN , EXAM PER RN Events overnight : AFEBRILE 37 FiO2 - ra I/O = => 2 L Drips: ns Pressors: , hemodynamically stable Consultants: Hospital course: (08/19) 71f admitted s/p fall at home after fall , hypotensive A/P Shock - received 9 L NS, LEVO OFF - possible shock with UTI , but PCT low -? PE - US done in ER - neg for DVT - no recent h/o steroid use , cortisol = 7.0, stress dose of steroids 100 q 8 h 08/20 - STOPPED 08/21 - WILL STOP IVF NOW S/p fall using her walker, did not lose consciousness - ? mechanical fall vs being hypotensive at home resulting in fall ? - pain control - xrays done UTI = cx done , E coli - sens pending - IV cefepime Somnolence - improved - ABG acceptable s/p R total knee replacement on 08/12- DC on 08/15/21 - No evidence of compartment syndrome as per orto - pain control Anemia - ? chronic component - delutional - transfusion 1 uPRBC 08/20 and 1 u PRBC 08/21 planned - STOP IVF OOB PT Lines : r IJ 08/19 (Central Line Necessity Reviewed) Gordon: 08/19 OG: Nutrition: Analgesia: Anxiety/ delirium VTE Prophylaxis: nathalia 40 - ON HOLD as per PCP with transfusions , WILL TRY SCD Stress Ulcer Prophylaxis: po Plans in collaboration with bedside consultants and IM MDs. Discussed with RN to reach out if any questions or concerns A total of 33 minutes of critical care time was devoted to this patient today, required to treat and/or prevent further deterioration of critical care condition ( as above) . Sepsis Event Evaluation Height, Weight, BMI Height: 5'4.00" Weight: 267lbs. 7.0oz. 121.820124rg; 46.52 BMI Method: Focused Exam Lactate Level 08/19/21 12:27: Lactic Acid Level 1.42 Exam Exam Patient acknowledged, consented, and participated in this virtual visit which was conducted using real time audio/video Vital Signs Date Time Temp Pulse Resp B/P (MAP) Pulse Ox O2 Delivery O2 Flow Rate FiO2 08/21/21 08:25 36.8 70 16 98/54 98 Room Air 08/21/21 08:00 62 22 109/60 95 Room Air 08/21/21 08:00 94 Room Air 08/21/21 07:45 36.3 08/21/21 07:00 64 29 109/72 95 Room Air 08/21/21 07:00 65 08/21/21 05:00 67 19 111/72 97 Room Air 08/21/21 04:00 94 Room Air 08/21/21 04:00 68 26 110/58 89 Room Air 08/21/21 03:00 64 20 97/54 96 Room Air 08/21/21 02:00 77 111/66 100 Room Air 08/21/21 01:00 73 08/21/21 01:00 73 35 107/56 95 Room Air 08/21/21 00:00 95 Room Air 08/21/21 00:00 75 21 124/65 97 Room Air 08/20/21 23:00 79 19 102/61 97 Room Air 08/20/21 22:18 96 Room Air 08/20/21 22:00 72 22 116/61 97 Room Air 08/20/21 21:00 82 26 133/68 99 Room Air 08/20/21 20:00 98 Room Air 08/20/21 20:00 82 18 138/73 98 Room Air 08/20/21 19:30 37.0 08/20/21 19:00 76 22 113/54 96 Room Air 08/20/21 19:00 76 08/20/21 18:00 80 94/53 08/20/21 17:42 79 107/56 08/20/21 17:00 77 103/54 97 Nasal Cannula 2.00 08/20/21 16:00 71 105/68 97 Nasal Cannula 2.00 08/20/21 16:00 37.1 08/20/21 15:00 79 15 107/56 100 Nasal Cannula 2.00 08/20/21 14:00 90 16 117/77 98 Nasal Cannula 2.00 08/20/21 13:00 84 11 106/57 100 Nasal Cannula 2.00 08/20/21 13:00 85 08/20/21 12:20 36.7 83 14 101/51 100 Room Air 08/20/21 12:00 82 11 102/52 99 Nasal Cannula 2.00 08/20/21 12:00 37.4 08/20/21 11:00 84 20 108/60 95 Nasal Cannula 2.00 I & O 08/21/21 07:00 Intake Total 4234 ml Output Total 5250 ml Balance -1016 ml Height & Weight Height: 5'4.00" Weight: 267lbs. 7.0oz. 121.322882an; 46.52 BMI Method: General Appearance: No Apparent Distress, Obese HEENT: PERRL/EOMI; No Scleral Icterus (L), No Scleral Icterus (R) Neck: Non Tender, Supple; No Lymphadenopathy (L), No Lymphadenopathy (R) Respiratory: Chest Non Tender, No Accessory Muscle Use, No Respiratory Distress, Crackles (Anterior) Cardiovascular: Regular Rate, Rhythm, No Murmur, Normal Peripheral Pulses Capillary Refill: Less Than 3 Seconds Peripheral Pulses: 2+ Dorsalis Pedis (R), 2+ Left Dors-Pedis (L), 2+ Radial Pulses (R), 2+ Radial Pulses (L) Gastrointestinal: normal bowel sounds, non tender, soft Extremity: Pedal Edema, Swelling (of R knee and R miller ), Other (surgical incision dressed, clean and dry ) Neurologic/Psychiatric: Alert, Oriented x3 Skin: Normal Color, Warm/Dry Lymphatic: No Adenopathy (Head and neck) Results Lab Laboratory Tests 08/19/21 11:05 08/19/21 17:25 08/20/21 04:22 08/20/21 16:05 08/21/21 04:00 Assessment/Plan Assessment/Plan ` SONYA KELLY MD Aug 21, 2021 10:41
--- NOTE | 2021-08-21 11:16 | Occupational Ther Daily Note ---
OT Current Status-Daily Note Subjective Pt up in recliner, agreeable to OT Tx. ADL-Treatment Therapy Code Descriptions/Definitions Functional [place] Measure: 0=Not Assessed/NA 4=Minimal Assistance 1=Total Assistance 5=Supervision or Setup 2=Maximal Assistance 6=Modified [place] 3=Moderate Assistance 7=Complete IndependenceSCALE: Activities may be completed with or without assistive devices. 7-Kmevzrgvjv-hdqzxlw completes the activity by him/herself with no assistance from a helper. 5-Set-up or Clean-up Assistance-helper sets up or cleans up; patient completes activity. [place] assists only prior to or following the activity. 4-Supervision or Touching Assistance-helper provides verbal cues and/or touching/steadying and/or contact guard assistance as patient completes activity. Assistance may be provided throughout the activity or intermittently. 3-Partial/Moderate Assistance-helper does LESS THAN HALF the effort. [place] lifts, holds or supports trunk or limbs, but provides less than half the effort. 2-Substantial/Maximal Assistance-helper does MORE THAN HALF the effort. [place] lifts or holds trunk or limbs and provides more than half the effort. 3-Cbrdtrhio-aiwbvu does ALL the effort. Patient does none of the effort to co mplete the activity. Or, the assistance of 2 or more helpers is required for the patient to complete the activity. If activity was not attempted, code reason: 7-Patient Refused. 9-Not Applicable-not attempted and the patient did not perform the activity before the current illness, exacerbation or injury. 10-Not Attempted due to Environmental Limitations-(lack of equipment, weather restraints, etc.). 88-Not Attempted due to Medical Conditions or Safety Concerns. Other Treatment Pt up in recliner, agreeable to OT Tx. Pt required max A to brush her hair due to tangles, pt able to use BUE to brush her hair. Pt able to brush teeth with set up assist. Post tx, pt in recliner, call light in reach and all needs met. Education OT Patient Education: Correct positioning, Energy conservation, Exercise program, Modified ADL techniques, Progress toward Goal/Update tx plan, Purpose of tx/functional activities, Rehab process Teaching Recipient: Patient Teaching Methods: Discussion Response to Teaching: Verbalize Understanding OT Plant Associate Goals Plant Associate Goals Time Frame: September 06, 2021 Oral Hygiene (QC): 5 Toileting Hygiene (QC): 4 Shower/Bathe Self (QC): 3 Upper Body Dressing (QC): 5 Lower Body Dressing (QC): 4 On/Off Footwear (QC): 3 1=Demonstrate adherence to instructed precautions during ADL tasks. 2=Patient will verbalize/demonstrate understanding of assistive devices/modifications for ADL. 3=Patient will improve strength/tolerance for activity to enable patient to perform ADL's. OT Education/Plan Problem List/Assessment Assessment: Decreased Activ Tolerance, Decreased UE Strength, Impaired Funct Balance, Impaired I ADL's, Impaired Self-Care Skills Discharge Recommendations Plan/Recommendations: Continue POC Treatment Plan/Plan of Care Patient would benefit from OT for education, treatment and training to promote independence in ADL's, mobility, safety and/or upper extremity function for ADL's. Plan of Care: ADL Retraining, Functional Mobility, Group Exercise/Act as Ind, UE Funct Exercise/Act Treatment Duration: September 06, 2021 Frequency: 3 times per week (3-5x/week) Estimated Hrs Per Day: .25 hour per day Rehab Potential: Guarded Time/GCodes Start Time: 10:30 Stop Time: 10:45 Total Time Billed (hr/min): 15 Billed Treatment Time 1, ADL MARLIN MANZO OT Aug 21, 2021 11:16
[2021-08-21 11:17] VITALS: BP 11/61
--- NOTE | 2021-08-21 12:32 | Progress Note - Hospitalist ---
TAWNY THURSTON 08/21/21 1232: Subjective HPI/CC On Admission Date Seen by Provider: Aug 21, 2021 Time Seen by Provider: 09:00 Chief complaint: Fall with right leg pain History of present illness: This is a 71-year-old white female patient of [facility] who is status post right knee replacement by Dr. Kebede at [facility] on 08/12/2021 and discharged 08/15/2021 who presented to the ER after a fall with right leg pain. Patient was lethargic after given pain medication so no history obtainable. She was assessed to be hypotensive requiring central line placement and aggressive IV fluid resuscitation along with pressor therapy. White count was 18,000 but no evidence of sepsis as source of hypotension. UTI noted which was mild so cefepime was placed. Hemoglobin was 9 we will monitor closely. Subjective/Events-last exam The patient was sitting in her chair this morning and was in good spirits. She still has pain in the R leg. She was receiving a unit of blood this morning when I saw her. She has no other complaints. Review of Systems General: No Chills; Other (no fever) HEENT: No Head Aches, No Visual Changes Pulmonary: No Dyspnea; Cough Cardiovascular: No: Chest Pain, Palpitations Gastrointestinal: No: Nausea, Vomiting Musculoskeletal: other (R knee pain ) Neurological: No: Change in speech, Confusion Focused Exam Lactate Level 08/19/21 12:27: Lactic Acid Level 1.42 Objective Exam Vital Signs Vital Signs Date Time Temp Pulse Resp B/P (MAP) Pulse Ox O2 Delivery O2 Flow Rate FiO2 08/21/21 12:00 94 Room Air 08/21/21 11:35 36.3 08/21/21 11:17 66 18 11/61 08/20/21 17:00 2.00 Capillary Refill : Less Than 3 Seconds General Appearance: No Apparent Distress, Chronically ill, Obese HEENT: PERRL/EOMI, Moist Mucous Membranes Neck: Full Range of Motion, Normal Inspection Respiratory: Chest Non Tender, Lungs Clear, Normal Breath Sounds, No Accessory Muscle Use, No Respiratory Distress Cardiovascular: Regular Rate, Rhythm, No Murmur, Normal Peripheral Pulses Gastrointestinal: Normal Bowel Sounds, No Organomegaly, No Pulsatile Mass, Non Tender, Soft Extremity: Normal Inspection, No Calf Tenderness, Swelling (R knee continues with swelling, surgical incision is dressed, clean and dry ), Other Neurologic/Psychiatric: Alert, Oriented x3, No Motor/Sensory Deficits, Normal Mood/Affect Skin: Normal Color, Warm/Dry Results/Procedures Lab Laboratory Tests 08/20/21 16:05 08/21/21 04:00 Patient resulted labs reviewed. Assessment/Plan Assessment and Plan Assess & Plan/Chief Complaint Assessment: Hypovolemic shock Status post total knee replacement by Dr. Kebede at [facility] on 08/12/2021 and discharged 08/15/2021 UTI without signs of sepsis Anemia postop acute blood loss Leukocytosis Hyponatremia Elevated D-dimer with bilateral lower extremity ultrasounds negative for DVT and no hypoxia Fibromyalgia Chronic pain History of hypertension Obesity Plan: Hypovolemic shock Status post total knee replacement by Dr. Kebede at [facility] on 08/12/2021 and discharged 08/15/2021 UTI without signs of sepsis Anemia postop acute blood loss Leukocytosis Hyponatremia Elevated D-dimer with bilateral lower extremity ultrasounds negative for DVT and no hypoxia Fibromyalgia Chronic pain History of hypertension Obesity Blood pressures have stabilized at this time. Appreciate cardiology, who reported her hypotension was not related to a structural heart defect following her echocardiogram. The patient will move to the 4th floor today. Levophed, IVF, and hydrocortisone will be stopped. Cefepime stopped, and Cefdinir started. We will continue to manage her pain PRN. Monitor Hgb, white count and el ectrolytes. She will receive blood PRN. She will likely need to be DC to a nursing facility. She will start PT on the 4th floor. ESTELA ELY DO 08/21/212008: Subjective Subjective/Events-last exam Pt is doing a lot better Transferring to 4th floor BP much improved Hydrocortisone was discontinued since no evidence of any adrenal insufficiency sine Cortisol was 7 Hemoglobin was 7.0, so gave her another unit of blood She said the same thing happened last time after her knee replacement. She had severe anemia and low BP and needed transfusions. Review of Systems General: Fatigue, Malaise Objective Exam General Appearance: No Apparent Distress, WD/WN, Chronically ill, Obese Respiratory: Lungs Clear, Normal Breath Sounds Cardiovascular: Regular Rate, Rhythm Neurologic/Psychiatric: Alert, Oriented x3 Assessment/Plan Assessment and Plan Assess & Plan/Chief Complaint Transfer to fourth floor Supervisory-Addendum Brief Verification & Attestation Participated in pt care: history, MDM, physical Personally performed: exam, history, MDM, supervision of care Care discussed with: Medical Student Procedures: n/a Results interpretation: Verified all documentation Verification and Attestation of Medical Student E/M Service A medical student performed and documented this service in my presence. I rev iewed and verified all information documented by the medical student and made modifications to such information, when appropriate. I personally performed the physical exam and medical decision making. Estela Ely, Aug 22, 2021,05:31 TAWNY THURSTON Aug 21, 2021 12:32 ESTELA ELY DO Aug 21, 2021 20:09
--- NOTE | 2021-08-21 15:37 | Physical Therapy Daily Note ---
PT Daily Note-Current Subjective Upon arrival, pt was being transferred from to bed, with assistance from ASSISTANT HEALTH EDUCATOR. Pt was placed in bed. Pt agrees to PT. Pt reports 5/10 pain in knee. Pain Numeric Pain Scale: 5-Moderate Pain Mental Status Patient Orientation: Person, Place, Time, Situation, Normal For Age Attachments: Gordon Catheter Transfers SCALE: Activities may be completed with or without assistive devices. 8-Eahclvyinb-koonvbd completes the activity by him/herself with no assistance from a helper. 5-Set-up or Clean-up Assistance-helper sets up or cleans up; patient completes activity. [place] assists only prior to or following the activity. 4-Supervision or Touching Assistance-helper provides verbal cues and/or touching/steadying and/or contact guard assistance as patient completes activity. Assistance may be provided throughout the activity or intermittently. 3-Partial/Moderate Assistance-helper does LESS THAN HALF the effort. [place] lifts, holds or supports trunk or limbs, but provides less than half the effort. 2-Substantial/Maximal Assistance-helper does MORE THAN HALF the effort. [place] lifts or holds trunk or limbs and provides more than half the effort. 9-Edyxnijem-plailz does ALL the effort. Patient does none of the effort to complete the activity. Or, the assistance of 2 or more helpers is required for the patient to complete the activity. If activity was not attempted, code reason: 7-Patient Refused. 9-Not Applicable-not attempted and the patient did not perform the activity before the current illness, exacerbation or injury. 10-Not Attempted due to Environmental Limitations-(lack of equipment, weather restraints, etc.). 88-Not Attempted due to Medical Conditions or Safety Concerns. Sit to Lying (QC): 3 Therapist assistanted pt in bed, and positioned bed to help pt slide towards the HOB. Then adjusted bed for pt comfort. Gait Training Does the Patient Walk?: No and Walking Goal IS indicated Exercises Supine Ex: Ankle pumps (10), Quad Set (10 2x), Glut sets (10), Heel Slides (10), Straight leg raise (10) Treatments At the beginning of the tx session pt had been transferred from ICU to 4th floor. ASSISTANT HEALTH EDUCATOR was present upon arrival. PT performs and completes all EXs as listed above. During tx session pts RN arrives and introduces herself. As PT concludes, pt requests for a soda. The call light and tray were in reach, and all needs where met. Assessment Current Status: Good Progress Pt would benefit from continued PT, to improve on strength, ROM, and activity tolerance. PT Machine Tester Goals Snf Goals PT Machine Tester Goals Time Frame: Aug 31, 2021 Roll Left & Right (QC): 4 Sit to Lying (QC): 4 Lying-Sitting on Side/Bed(QC): 4 Sit to Stand (QC): 4 Chair/Wrz-ga-Kvkfq Xfer(QC): 4 Toilet Transfer (QC): 4 Walk 10 feet (QC): 4 Walk 50ft with 2 Turns (QC): 4 Walk 150 ft (QC): 4 PT Plan Problem List Problem List: Activity Tolerance, Functional Strength, ROM Treatment/Plan Treatment Plan: Continue Plan of Care Treatment Plan: Bed Mobility, Education, Functional Activity Ladan, Functional Strength, Gait, Safety, Therapeutic Exercise, Transfers Treatment Duration: Aug 31, 2021 Frequency: 11 times per week Estimated Hrs Per Day: .5 hour per day Safety Risks/Education Patient Education: Transfer Techniques, Correct Positioning Teaching Recipient: Patient Teaching Methods: Discussion Response to Teaching: Verbalize Understanding Time/GCodes Time In: 1508 Time Out: 1524 Total Billed Treatment Time: 16 Total Billed Treatment 1, EX (16) GENNY TORRES TRAFFIC SUPERVISOR Aug 21, 2021 15:37
[2021-08-21] MEDS: MEROPENEM 1,000 MG in NS (IVPB) 100 ML IV SCH (17:44)
--- NOTE | 2021-08-21 17:56 | Cardiology Progress Note ---
Progress Note-Cardiology Events since last exam Date Seen by Provider: Aug 21, 2021 Time Seen by Provider: 17:55 Events since last exam I am following her due to chronic intermittent hypotension in the setting of shock which has now resolved. She was transferred out of the intensive care unit to the medical floor. She was sitting up in bed eating supper. She denied chest discomfort, dyspnea at rest, palpitations, or syncope. Her chronic peripheral edema is about the same. Certain portions of this document may have been dictated utilizing voice recognition technology. Inherent to this technology, typographical and grammatical errors may exist. As much as I am diligent to identify and correct these mistakes, some errors may remain in the document. Vitals Last set of Vitals Signs Vital Signs 08/20/21 08/21/21 17:00 16:00 Temp 36.6 Pulse 72 Resp 18 B/P (MAP) 117/70 Pulse Ox 96 O2 Delivery Room Air O2 Flow Rate 2.00 Labs Labs Laboratory Tests 08/21/21 04:00 Exam Vital Signs Vital Signs Date Time Temp Pulse Resp B/P (MAP) Pulse Ox O2 Delivery O2 Flow Rate FiO2 08/21/21 16:00 36.6 72 18 117/70 96 Room Air 08/20/21 17:00 2.00 Physical Exam General: Alert. No acute distress. She is morbidly obese. Eye: No xanthelasma. HENT: Normocephalic. Neck: Jugular venous pressure does not appear elevated. Respiratory: Lungs are clear to auscultation. Respirations are non-labored. Breath sounds are equal. Symmetrical chest wall expansion. Cardiovascular: Normal rate. Regular rhythm. Distant S1/S2. No murmur. No gallop. 2+ bilateral pretibial edema without venous stasis changes. Gastrointestinal: Soft. Normal bowel sounds. Skin: Warm. Dry. Neurologic: Alert and oriented to person, place, time. Cranial nerves 3-11 grossly intact. Psychiatric: Cooperative. Appropriate mood & affect. Labs Laboratory Tests Test 08/20/21 21:02 08/21/21 04:00 08/21/21 05:50 08/21/21 10:54 Range/Units Glucometer 159 H 168 H 70-110 MG/DL White Blood Count 10.7 4.3-11.0 10^3/uL Red Blood Count 2.28 L 3.80-5.11 10^6/uL Hemoglobin 7.1 L 11.5-16.0 g/dL Hematocrit 21 L 35-52 % Mean Corpuscular Volume 93 80-99 fL Mean Corpuscular Hemoglobin 31 25-34 pg Mean Corpuscular Hemoglobin Concent 34 32-36 g/dL Red Cell Distribution Width 13.0 10.0-14.5 % Platelet Count 346 130-400 10^3/uL Mean Platelet Volume 9.7 9.0-12.2 fL Immature Granulocyte % (Auto) 2 % Neutrophils (%) (Auto) 83 H 42-75 % Lymphocytes (%) (Auto) 9 L 12-44 % Monocytes (%) (Auto) 6 0-12 % Eosinophils (%) (Auto) 0 0-10 % Basophils (%) (Auto) 0 0-10 % Neutrophils # (Auto) 8.9 H 1.8-7.8 10^3/uL Lymphocytes # (Auto) 1.0 1.0-4.0 10^3/uL Monocytes # (Auto) 0.7 0.0-1.0 10^3/uL Eosinophils # (Auto) 0.0 0.0-0.3 10^3/uL Basophils # (Auto) 0.0 0.0-0.1 10^3/uL Immature Granulocyte # (Auto) 0.2 H 0.0-0.1 10^3/uL Sodium Level 136 135-145 MMOL/L Potassium Level 4.3 3.6-5.0 MMOL/L Chloride Level 105 98-107 MMOL/L Carbon Dioxide Level 19 L 21-32 MMOL/L Anion Gap 12 5-14 MMOL/L Blood Urea Nitrogen 13 7-18 MG/DL Creatinine 0.74 0.60-1.30 MG/DL Estimat Glomerular Filtration Rate 87 BUN/Creatinine Ratio 18 Glucose Level 156 H 70-105 MG/DL Calcium Level 8.3 L 8.5-10.1 MG/DL Corrected Calcium 9.3 8.5-10.1 MG/DL Phosphorus Level 2.7 2.3-4.7 MG/DL Magnesium Level 2.0 1.6-2.4 MG/DL Total Bilirubin 0.8 0.1-1.0 MG/DL Aspartate Amino Transf (AST/SGOT) 13 5-34 U/L Alanine Aminotransferase (ALT/SGPT) 13 0-55 U/L Alkaline Phosphatase 79 40-136 U/L Total Protein 5.1 L 6.4-8.2 GM/DL Albumin 2.7 L 3.2-4.5 GM/DL Blood Gas Puncture Site L RAD Blood Gas Patient Temperature 36.3 Arterial Blood pH 7.38 7.37-7.43 Arterial Blood Partial Pressure CO2 39 35-45 MMHG Arterial Blood Partial Pressure O2 74 L 79-93 MMHG Arterial Blood HCO3 23 23-27 MMOL/L Arterial Blood Total CO2 23.8 21.0-31.0 MMOL/L Arterial Blood Oxygen Saturation 98 94-100 % Arterial Blood Base Excess -1.9 -2.5-2.5 MMOL/L Fabian Test YES-POS Blood Gas Ventilator Setting NO Blood Gas Inspired Oxygen 3L Test 08/21/21 12:56 08/21/21 15:52 Range/Units Lab Scanned Report Transfusion Reaction Form [id number] Glucometer 108 70-110 MG/DL Diagnosis/Problems Diagnosis/Problems (1) Shock Assessment & Plan: Her shock has now resolved. (2) Orthostatic hypotension Status: Chronic Assessment & Plan: She tells me she has a long history of orthostatic hypot ension but despite this, takes antihypertensive medication at home. Her blood pressure is normal now of vasopressors. I recommend we continue to hold her outpatient blood pressure medications. (3) Primary hypertension Status: Chronic Assessment & Plan: Follow blood pressure closely and resume her outpatient medication if needed. (4) Mixed hyperlipidemia Status: Chronic Assessment & Plan: Continue atorvastatin. (5) Morbid obesity Status: Chronic Assessment & Plan: She needs to work on weight loss. MATIAS SMITH JR, MD Aug 21, 2021 17:56
[2021-08-21] MEDS ORDERED: CEFDINIR 300 MG (OMNICEF) CAP PO SCH (21:00)
[2021-08-22] MEDS: MEROPENEM 1,000 MG in NS (IVPB) 100 ML IV SCH ×3 (00:05→15:51)
[2021-08-22] MEDS: morphine INJ 4 MG/ML 1 ML (VIAL/SYRINGE) IV PRN (04:40)
[2021-08-22] MEDS: LEVOTHYROXINE 150 MCG (LEVOTHROID) TAB PO SCH (05:45)
[2021-08-22 05:59] LABS: BASOPHILS % (AUTO) 0 % (0-10); EOSINOPHILS # (AUTO) 0.2 10^3/uL (0.0-0.3); EOSINOPHILS % (AUTO) 2 % (0-10); HEMATOCRIT 23 % (35-52); HEMOGLOBIN 7.9 g/dL (11.5-16.0); LYMPHOCYTES # (AUTO) 2.3 10^3/uL (1.0-4.0); LYMPHOCYTES % (AUTO) 22 % (12-44); MEAN CORPUSCULAR HEMOGLOBIN 31 pg (25-34); MEAN CORPUSCULAR HGB CONC 34 g/dL (32-36); MEAN CORPUSCULAR VOLUME 91 fL (80-99); MEAN PLATELET VOLUME 9.6 fL (9.0-12.2); MONOCYTES # (AUTO) 0.9 10^3/uL (0.0-1.0); MONOCYTES % (AUTO) 8 % (0-12); NEUTROPHILS # (AUTO) 6.9 10^3/uL (1.8-7.8); NEUTROPHILS % (AUTO) 66 % (42-75); PLATELET COUNT 340 10^3/uL (130-400); WHITE BLOOD COUNT 10.5 10^3/uL (4.3-11.0)
[2021-08-22 06:12] LABS: ALBUMIN 2.6 GM/DL (3.2-4.5); POTASSIUM 4.1 MMOL/L (3.6-5.0)
[2021-08-22 06:14] LABS: CALCIUM 8.4 MG/DL (8.5-10.1)
[2021-08-22] MEDS: inSUlin ASPART (NovoLOG) 1 UNIT/0.01 ML (CHARGE PER UNIT) SC SCH ×4 (06:16→20:48)
[2021-08-22 06:17] LABS: BILIRUBIN,TOTAL 0.9 MG/DL (0.1-1.0)
[2021-08-22 06:18] LABS: CREATININE SERUM 0.74 MG/DL (0.60-1.30)
[2021-08-22 06:21] LABS: MAGNESIUM 1.8 MG/DL (1.6-2.4)
[2021-08-22] MEDS: rOPINIRole 1 MG (REQUIP) TABLET PO SCH ×2 (08:27→20:20)
[2021-08-22] MEDS: DULoxetine 30 MG (CYMBALTA) CAP PO SCH ×2 (08:27→20:20)
[2021-08-22] MEDS: SENNOSIDES 8.6 MG (SENOKOT) TAB PO SCH ×2 (08:27→20:48)
[2021-08-22] MEDS: CYCLOBENZAPRINE 10 MG (FLEXERIL) TAB PO PRN ×2 (08:27→15:55)
[2021-08-22] MEDS: DOCUSATE SODIUM 100 MG (COLACE) CAP PO SCH ×2 (08:27→20:19)
[2021-08-22] MEDS: GABAPENTIN 300 MG (NEURONTIN) CAP PO SCH (08:27)
--- NOTE | 2021-08-22 10:13 | Physical Therapy Daily Note ---
PT Daily Note-Current Subjective Patient agrees to PT. Pain Numeric Pain Scale: 5-Moderate Pain Location: Right Location Body Site: Knee Pain Description: Acute Mental Status Patient Orientation: Normal For Age Attachments: Gordon Catheter, IV Transfers SCALE: Activities may be completed with or without assistive devices. 5-Kjqgpybsbe-tpcxeeh completes the activity by him/herself with no assistance from a helper. 5-Set-up or Clean-up Assistance-helper sets up or cleans up; patient completes activity. [place] assists only prior to or following the activity. 4-Supervision or Touching Assistance-helper provides verbal cues and/or touching/steadying and/or contact guard assistance as patient completes activity. Assistance may be provided throughout the activity or intermittently. 3-Partial/Moderate Assistance-helper does LESS THAN HALF the effort. [place] lifts, holds or supports trunk or limbs, but provides less than half the effort. 2-Substantial/Maximal Assistance-helper does MORE THAN HALF the effort. [place] lifts or holds trunk or limbs and provides more than half the effort. 0-Jgozuqxlb-eiktjc does ALL the effort. Patient does none of the effort to complete the activity. Or, the assistance of 2 or more helpers is required for the patient to complete the activity. If activity was not attempted, code reason: 7-Patient Refused. 9-Not Applicable-not attempted and the patient did not perform the activity before the current illness, exacerbation or injury. 10-Not Attempted due to Environmental Limitations-(lack of equipment, weather restraints, etc.). 88-Not Attempted due to Medical Conditions or Safety Concerns. Lying to Sitting/Side of Bed(Q: 6 Sit to Stand (QC): 4 Chair/Ori-bo-Wipux Xfer(QC): 4 Gait Training Does the Patient Walk?: Yes Distance: 250' Walk 10 feet (QC): 4 Walk 50 ft with 2 Turns(QC): 4 Walk 150 ft (QC): 4 Gait Assistive Device: FWW steady, antalgic, functional gait sequence Exercises Supine Ex: Ankle pumps, Quad Set, Heel Slides, Straight leg raise Supine Reps: 15 Seated Therapy Exercises: Long arc quads Seated Reps: 15 Assessment Much improved on this date. Limited right knee flexion due to pain. PT encouraged patient to "push" slightly past the pain to increase right knee flexion. Patient able to demonstrate this. PT Tankman Goals Tankman Goals PT Jail Goals Time Frame: Aug 31, 2021 Roll Left & Right (QC): 4 Sit to Lying (QC): 4 Lying-Sitting on Side/Bed(QC): 4 Sit to Stand (QC): 4 Chair/Vxw-qi-Sozto Xfer(QC): 4 Toilet Transfer (QC): 4 Walk 10 feet (QC): 4 Walk 50ft with 2 Turns (QC): 4 Walk 150 ft (QC): 4 PT Plan Treatment/Plan Treatment Plan: Continue Plan of Care Treatment Plan: Bed Mobility, Education, Functional Activity Ladan, Functional Strength, Gait, Safety, Therapeutic Exercise, Transfers Treatment Duration: Aug 31, 2021 Frequency: 11 times per week Estimated Hrs Per Day: .5 hour per day Time/GCodes Time In: 840 Time Out: 903 Total Billed Treatment Time: 23 Total Billed Treatment 1 visit EX 12 min GT 11 min ANGELINA MARTINEZ PT Aug 22, 2021 10:13
--- NOTE | 2021-08-22 12:22 | Progress Note - Hospitalist ---
TAWNY THURSTON 08/22/21 1222: Subjective HPI/CC On Admission Date Seen by Provider: Aug 22, 2021 Time Seen by Provider: 09:45 Chief complaint: Fall with right leg pain History of present illness: This is a 71-year-old white female patient of [facility] who is status post right knee replacement by Dr. Kebede at [facility] on 08/12/2021 and discharged 08/15/2021 who presented to the ER after a fall with right leg pain. Patient was lethargic after given pain medication so no history obtainable. She was assessed to be hypotensive requiring central line placement and aggressive IV fluid resuscitation along with pressor therapy. White count was 18,000 but no evidence of sepsis as source of hypotension. UTI noted which was mild so cefepime was placed. Hemoglobin was 9 we will monitor closely. Subjective/Events-last exam The patient was sitting in her chair today, and was not in acute distress. She reports getting up and walking down the [place] this morning. She had a BM yesterd ay. She continues to report soreness in the R knee. She reports sleeping bad last night due to muscle spasms in her legs. Review of Systems General: No Chills; Other (no fever) HEENT: No Head Aches, No Visual Changes Pulmonary: No Dyspnea; Cough (no change from yesterday ) Cardiovascular: No: Chest Pain, Palpitations Gastrointestinal: No: Nausea, Vomiting Neurological: No: Change in speech, Confusion Focused Exam Lactate Level 08/19/21 12:27: Lactic Acid Level 1.42 Objective Exam Vital Signs Vital Signs Date Time Temp Pulse Resp B/P (MAP) Pulse Ox O2 Delivery O2 Flow Rate FiO2 08/22/21 08:18 37.2 73 18 101/57 98 Room Air 08/20/21 17:00 2.00 Capillary Refill : Less Than 3 Seconds General Appearance: No Apparent Distress, Obese HEENT: PERRL/EOMI, Moist Mucous Membranes Neck: Full Range of Motion, Normal Inspection Respiratory: Chest Non Tender, Lungs Clear, Normal Breath Sounds, No Accessory Muscle Use, No Respiratory Distress Cardiovascular: Regular Rate, Rhythm, No Murmur, Normal Peripheral Pulses Gastrointestinal: Normal Bowel Sounds, No Organomegaly, No Pulsatile Mass, Non Tender, Soft Extremity: Normal Inspection, Calf Tenderness (of R calf, none on L), Swelling (of R knee, unchanged compared to yesterday), Other (surgical incision of R knee dressed, clean and dry ) Neurologic/Psychiatric: Alert, Oriented x3, No Motor/Sensory Deficits, Normal Mood/Affect Skin: Normal Color, Warm/Dry Results/Procedures Lab Laboratory Tests 08/22/21 05:48 Patient resulted labs reviewed. Assessment/Plan Assessment and Plan Assess & Plan/Chief Complaint Assessment: Hypovolemic shock Status post total knee replacement by Dr. Kebede at [place] on 08/12/2021 and discharged 08/15/2021 UTI without signs of sepsis Anemia postop acute blood loss Leukocytosis Hyponatremia Elevated D-dimer with bilateral lower extremity ultrasounds negative for DVT and no hypoxia Fibromyalgia Chronic pain History of hypertension Obesity Plan: Hypovolemic shock Status post total knee replacement by Dr. Kebede at [place] on 08/12/2021 and discharged 08/15/2021 UTI without signs of sepsis Anemia postop acute blood loss Leukocytosis Hyponatremia Elevated D-dimer with bilateral lower extremity ultrasounds negative for DVT and no hypoxia Fibromyalgia Chronic pain History of hypertension Obesity The patient has made an excellent recovery. Her blood pressures are stable and within normal levels, and she is able to ambulate. We will DC the folley today. Her expressed that he is not able to care for the PT's pain management and rehabilitation at home. She is planned to be DC tomorrow, we will look into penitentiary facilities for the patient's further recovery once DC. Meropenem started yesterday, which she will continue on until DC. ESTELA FERNANDEZ DO 08/23/21 0533: Subjective Subjective/Events-last exam Patient doing a lot better Walking really well PT and OT think she needs to work on therapy Bowels moved yesterday Needs to go to [facility] was clear that he cannot manage her pain or rehab at home Review of Systems General: Fatigue, Malaise Objective Exam General Appearance: No Apparent Distress, WD/WN, Chronically ill, Obese Respiratory: Lungs Clear, Normal Breath Sounds Cardiovascular: Regular Rate, Rhythm Neurologic/Psychiatric: Alert, Oriented x3 Assessment/Plan Assessment and Plan Assess & Plan/Chief Complaint supportive care Supervisory-Addendum Brief Verification & Attestation Participated in pt care: history, MDM, physical Personally performed: exam, history, MDM, supervision of care Care discussed with: Medical Student Procedures: n/a Results interpretation: Verified all documentation Verification and Attestation of Medical Student E/M Service A medical student performed and documented this service in my presence. I reviewed and verified all information documented by the medical student and made modifications to such information, when appropriate. I personally performed the physical exam and medical decision making. Estela Fernandez, Aug 23, 2021,05:32 TAWNY THURSTNO Aug 22, 2021 12:22 ESTELA FERNANDEZ DO Aug 23, 2021 05:33
--- NOTE | 2021-08-22 13:57 | Physical Therapy Daily Note ---
PT Daily Note-Current Subjective Patient agrees to PT. Pain Numeric Pain Scale: 7 Location: Right Location Body Site: Knee Pain Description: Acute Mental Status Patient Orientation: Normal For Age Transfers SCALE: Activities may be completed with or without assistive devices. 2-Ghjvpoawmo-hwvjlpq completes the activity by him/herself with no assistance from a helper. 5-Set-up or Clean-up Assistance-helper sets up or cleans up; patient completes activity. [place] assists only prior to or following the activity. 4-Supervision or Touching Assistance-helper provides verbal cues and/or touching/steadying and/or contact guard assistance as patient completes activit y. Assistance may be provided throughout the activity or intermittently. 3-Partial/Moderate Assistance-helper does LESS THAN HALF the effort. [place] lifts, holds or supports trunk or limbs, but provides less than half the effort. 2-Substantial/Maximal Assistance-helper does MORE THAN HALF the effort. [place] lifts or holds trunk or limbs and provides more than half the effort. 8-Fblnkmdml-bylnkk does ALL the effort. Patient does none of the effort to complete the activity. Or, the assistance of 2 or more helpers is required for the patient to complete the activity. If activity was not attempted, code reason: 7-Patient Refused. 9-Not Applicable-not attempted and the patient did not perform the activity before the current illness, exacerbation or injury. 10-Not Attempted due to Environmental Limitations-(lack of equipment, weather restraints, etc.). 88-Not Attempted due to Medical Conditions or Safety Concerns. Sit to Stand (QC): 4 Gait Training Distance: 250' Walk 10 feet (QC): 4 Walk 50 ft with 2 Turns(QC): 4 Walk 150 ft (QC): 4 Gait Assistive Device: FWW slow, antalgic gait sequence Exercises Seated Therapy Exercises: Long arc quads Seated Reps: 15 (very slow, appears to self limit due to pain) Assessment Patient requires time to complete all functional tasks. OT present to continue therapy after PT session. Increase activity and exercise (ROM) as patient tolerates. PT Senior Living Goals Senior Living Goals PT Senior Living Goals Time Frame: Aug 31, 2021 Roll Left & Right (QC): 4 Sit to Lying (QC): 4 Lying-Sitting on Side/Bed(QC): 4 Sit to Stand (QC): 4 Chair/Var-nc-Golde Xfer(QC): 4 Toilet Transfer (QC): 4 Walk 10 feet (QC): 4 Walk 50ft with 2 Turns (QC): 4 Walk 150 ft (QC): 4 PT Plan Treatment/Plan Treatment Plan: Continue Plan of Care Treatment Plan: Bed Mobility, Education, Functional Activity Ladan, Functional Strength, Gait, Safety, Therapeutic Exercise, Transfers Treatment Duration: Aug 31, 2021 Frequency: 11 times per week Estimated Hrs Per Day: .5 hour per day Time/GCodes Time In: 1325 Time Out: 1348 Total Billed Treatment Time: 23 Total Billed Treatment 1 visit EX 8 min GT 15 min ANGELINA MARTINEZ PT Aug 22, 2021 13:57
--- NOTE | 2021-08-22 14:09 | Occupational Ther Daily Note ---
OT Current Status-Daily Note Subjective Pt alert, sitting in recliner. Pt agrees to therapy. Pt c/o pain with movement, does not rate. Mental Status/Objective Patient Orientation: Person, Place, Time, Situation Attachments: Gordon Catheter, IV ADL-Treatment After set up, pt able to cleanse lee ann area in standing then assist to thoroughly cleanse buttocks. Min A for EOB to supine, education on using gait belt as leg pitch filler then pt completed with assist for upper body. Then pt able to scoot self up in bed with head board. Max A for donning/doffing socks. After therapy, pt lying in bed with call light/phone in reach. All needs met in room. Therapy Code Descriptions/Definitions Functional [place] Measure: 0=Not Assessed/NA 4=Minimal Assistance 1=Total Assistance 5=Supervision or Setup 2=Maximal Assistance 6=Modified [place] 3=Moderate Assistance 7=Complete IndependenceSCALE: Activities may be completed with or without assistive devices. 9-Npzltmewsq-cfifvle completes the activity by him/herself with no assistance from a helper. 5-Set-up or Clean-up Assistance-helper sets up or cleans up; patient completes activity. [place] assists only prior to or following the activity. 4-Supervision or Touching Assistance-helper provides verbal cues and/or touching/steadying and/or contact guard assistance as patient completes activity. Assistance may be provided throughout the activity or intermittently. 3-Partial/Moderate Assistance-helper does LESS THAN HALF the effort. [place] lifts, holds or supports trunk or limbs, but provides less than half the effort. 2-Substantial/Maximal Assistance-helper does MORE THAN HALF the effort. [place] lifts or holds trunk or limbs and provides more than half the effort. 4-Mvgynbqju-wcmqmm does ALL the effort. Patient does none of the effort to complete the activity. Or, the assistance of 2 or more helpers is required for the patient to complete the activity. If activity was not attempted, code reason: 7-Patient Refused. 9-Not Applicable-not attempted and the patient did not perform the activity before the current illness, exacerbation or injury. 10-Not Attempted due to Environmental Limitations-(lack of equipment, weather restraints, etc.). 88-Not Attempted due to Medical Conditions or Safety Concerns. OT [employer] Attendant Goals Detention Goals Time Frame: September 06, 2021 Oral Hygiene (QC): 5 Toileting Hygiene (QC): 4 Shower/Bathe Self (QC): 3 Upper Body Dressing (QC): 5 Lower Body Dressing (QC): 4 On/Off Footwear (QC): 3 1=Demonstrate adherence to instructed precautions during ADL tasks. 2=Patient will verbalize/demonstrate understanding of assistive devices/modifications for ADL. 3=Patient will improve strength/tolerance for activity to enable patient to perform ADL's. OT Education/Plan Problem List/Assessment Assessment: Decreased Activ Tolerance, Decreased UE Strength, Impaired Self- Care Skills Discharge Recommendations Plan/Recommendations: Continue POC Treatment Plan/Plan of Care Patient would benefit from OT for education, treatment and training to promote independence in ADL's, mobility, safety and/or upper extremity function for ADL's. Plan of Care: ADL Retraining, Functional Mobility, Group Exercise/Act as Ind, UE Funct Exercise/Act Treatment Duration: September 06, 2021 Frequency: 3 times per week (3-5x/week) Estimated Hrs Per Day: .25 hour per day Rehab Potential: Guarded Time/GCodes Start Time: 13:42 Stop Time: 14:05 Total Time Billed (hr/min): 23 Billed Treatment Time 1 visit-ADL 2 (23 min) ASIA ENGLE Aug 22, 2021 14:09
--- NOTE | 2021-08-22 16:07 | Cardiology Progress Note ---
Progress Note-Cardiology Events since last exam Date Seen by Provider: Aug 22, 2021 Time Seen by Provider: 16:06 Events since last exam I am following her due to hypotension. Her main complaint today was her res tless legs keeping her awake during the night. She denies chest discomfort. She denies shortness of breath at rest. Her chronic peripheral edema is about the same. She denies palpitations or syncope. Certain portions of this document may have been dictated utilizing voice recognition technology. Inherent to this technology, typographical and grammatical errors may exist. As much as I am diligent to identify and correct these mistakes, some errors may remain in the document. Vitals Last set of Vitals Signs Vital Signs 08/20/21 08/22/21 17:00 15:30 Temp 36.3 Pulse 75 Resp 20 B/P (MAP) 96/56 Pulse Ox 100 O2 Delivery Room Air O2 Flow Rate 2.00 Labs Labs Laboratory Tests 08/22/21 05:48 Exam Vital Signs Vital Signs Date Time Temp Pulse Resp B/P (MAP) Pulse Ox O2 Delivery O2 Flow Rate FiO2 08/22/21 15:30 36.3 75 20 96/56 100 Room Air 08/20/21 17:00 2.00 Physical Exam General: Alert. No acute distress. She is morbidly obese. Eye: No xanthelasma. HENT: Normocephalic. Neck: Jugular venous pressure does not appear elevated. Respiratory: Lungs are clear to auscultation. Respirations are non-labored. Breath sounds are equal. Symmetrical chest wall expansion. Cardiovascular: Normal rate. Regular rhythm. Distant S1/S2. 2/6 systolic ejection murmur. No gallop. 2+ bilateral pretibial edema. Gastrointestinal: Soft. Normal bowel sounds. Skin: Warm. Dry. Neurologic: Alert and oriented to person, place, time. Cranial nerves 3-11 grossly intact. Psychiatric: Cooperative. Appropriate mood & affect. Labs Laboratory Tests Test 08/21/21 20:03 08/22/21 05:48 08/22/21 11:09 08/22/21 12:00 Range/Units Glucometer 106 63 L 68 L 70-110 MG/DL White Blood Count 10.5 4.3-11.0 10^3/uL Red Blood Count 2.56 L 3.80-5.11 10^6/uL Hemoglobin 7.9 L 11.5-16.0 g/dL Hematocrit 23 L 35-52 % Mean Corpuscular Volume 91 80-99 fL Mean Corpuscular Hemoglobin 31 25-34 pg Mean Corpuscular Hemoglobin Concent 34 32-36 g/dL Red Cell Distribution Width 14.5 10.0-14.5 % Platelet Count 340 130-400 10^3/uL Mean Platelet Volume 9.6 9.0-12.2 fL Immature Granulocyte % (Auto) 2 % Neutrophils (%) (Auto) 66 42-75 % Lymphocytes (%) (Auto) 22 12-44 % Monocytes (%) (Auto) 8 0-12 % Eosinophils (%) (Auto) 2 0-10 % Basophils (%) (Auto) 0 0-10 % Neutrophils # (Auto) 6.9 1.8-7.8 10^3/uL Lymphocytes # (Auto) 2.3 1.0-4.0 10^3/uL Monocytes # (Auto) 0.9 0.0-1.0 10^3/uL Eosinophils # (Auto) 0.2 0.0-0.3 10^3/uL Basophils # (Auto) 0.0 0.0-0.1 10^3/uL Immature Granulocyte # (Auto) 0.2 H 0.0-0.1 10^3/uL Sodium Level 138 135-145 MMOL/L Potassium Level 4.1 3.6-5.0 MMOL/L Chloride Level 106 98-107 MMOL/L Carbon Dioxide Level 21 21-32 MMOL/L Anion Gap 11 5-14 MMOL/L Blood Urea Nitrogen 15 7-18 MG/DL Creatinine 0.74 0.60-1.30 MG/DL Estimat Glomerular Filtration Rate 87 BUN/Creatinine Ratio 20 Glucose Level 85 70-105 MG/DL Calcium Level 8.4 L 8.5-10.1 MG/DL Corrected Calcium 9.5 8.5-10.1 MG/DL Magnesium Level 1.8 1.6-2.4 MG/DL Total Bilirubin 0.9 0.1-1.0 MG/DL Aspartate Amino Transf (AST/SGOT) 16 5-34 U/L Alanine Aminotransferase (ALT/SGPT) 16 0-55 U/L Alkaline Phosphatase 75 40-136 U/L Total Protein 5.0 L 6.4-8.2 GM/DL Albumin 2.6 L 3.2-4.5 GM/DL Test 08/22/21 15:25 Range/Units Glucometer 85 70-110 MG/DL Diagnosis/Problems Diagnosis/Problems (1) Orthostatic hypotension Status: Chronic Assessment & Plan: She tells me she has a long history of orthostatic hypotension but despite this, takes antihypertensive medication at home. Her blood pressure is normal now of vasopressors. I recommend we continue to hold her outpatient blood pressure medications. We may actually need to start her on midodrine if her low blood pressures persist. (2) Primary hypertension Status: Chronic Assessment & Plan: Her blood pressures continue to be low. All of her antihypertensive medication is on hold. As above, we may need to start her on midodrine. Her blood pressures will need to be followed closely after discharge. (3) Mixed hyperlipidemia Status: Chronic Assessment & Plan: Continue atorvastatin. (4) Shock Assessment & Plan: Her shock has now resolved. (5) Morbid obesity Status: Chronic Assessment & Plan: She needs to work on weight loss. MATIAS SMITH JR, MD Aug 22, 2021 16:07
[2021-08-23] MEDS: MEROPENEM 1,000 MG in NS (IVPB) 100 ML IV SCH ×2 (00:20→08:22)
[2021-08-23] MEDS: CYCLOBENZAPRINE 10 MG (FLEXERIL) TAB PO PRN ×3 (00:29→13:41)
[2021-08-23] MEDS: inSUlin ASPART (NovoLOG) 1 UNIT/0.01 ML (CHARGE PER UNIT) SC SCH ×2 (05:10→11:45)
[2021-08-23] MEDS: LEVOTHYROXINE 150 MCG (LEVOTHROID) TAB PO SCH (06:26)
[2021-08-23 06:36] LABS: BASOPHILS # (AUTO) 0.1 10^3/uL (0.0-0.1); BASOPHILS % (AUTO) 1 % (0-10); EOSINOPHILS # (AUTO) 0.3 10^3/uL (0.0-0.3); EOSINOPHILS % (AUTO) 4 % (0-10); HEMATOCRIT 25 % (35-52); HEMOGLOBIN 8.2 g/dL (11.5-16.0); LYMPHOCYTES % (AUTO) 22 % (12-44); MEAN CORPUSCULAR HEMOGLOBIN 31 pg (25-34); MEAN CORPUSCULAR HGB CONC 33 g/dL (32-36); MEAN CORPUSCULAR VOLUME 92 fL (80-99); MEAN PLATELET VOLUME 9.1 fL (9.0-12.2); MONOCYTES # (AUTO) 0.7 10^3/uL (0.0-1.0); MONOCYTES % (AUTO) 8 % (0-12); NEUTROPHILS # (AUTO) 5.8 10^3/uL (1.8-7.8); NEUTROPHILS % (AUTO) 63 % (42-75); PLATELET COUNT 392 10^3/uL (130-400); WHITE BLOOD COUNT 9.2 10^3/uL (4.3-11.0)
[2021-08-23 06:55] LABS: ALBUMIN 2.5 GM/DL (3.2-4.5); BILIRUBIN,TOTAL 0.8 MG/DL (0.1-1.0); CALCIUM 8.4 MG/DL (8.5-10.1); CREATININE SERUM 0.71 MG/DL (0.60-1.30); MAGNESIUM 1.7 MG/DL (1.6-2.4); POTASSIUM 4.2 MMOL/L (3.6-5.0)
[2021-08-23] MEDS: DULoxetine 30 MG (CYMBALTA) CAP PO SCH (08:21)
[2021-08-23] MEDS: rOPINIRole 1 MG (REQUIP) TABLET PO SCH (08:22)
[2021-08-23] MEDS: DOCUSATE SODIUM 100 MG (COLACE) CAP PO SCH (08:22)
[2021-08-23] MEDS: SENNOSIDES 8.6 MG (SENOKOT) TAB PO SCH (08:22)
[2021-08-23] MEDS: GABAPENTIN 300 MG (NEURONTIN) CAP PO SCH (08:22)
[2021-08-23] MEDS: ACETAMINOPHEN 325 MG TABLET PO PRN (08:22)
--- NOTE | 2021-08-23 08:28 | Cardiology Progress Note ---
Progress Note-Cardiology Events since last exam Date Seen by Provider: Aug 23, 2021 Time Seen by Provider: 08:27 Events since last exam I am following her due to hypotension. The plan is for possible transfer to a [facility] facility today. She denies dyspnea at rest. She denies chest pain, palpitations or syncope. Her peripheral edema is slightly better but now she seems to have a hematoma at the right knee possibly related to the recent knee replacement. Certain portions of this document may have been dictated utilizing voice recognition technology. Inherent to this technology, typographical and grammatical errors may exist. As much as I am diligent to identify and correct these mistakes, some errors may remain in the document. Vitals Last set of Vitals Signs Vital Signs 08/20/21 08/23/21 08/23/21 17:00 07:39 08:00 Temp 37.0 Pulse 83 Resp 18 B/P (MAP) 108/69 Pulse Ox 98 O2 Delivery Room Air O2 Flow Rate 2.00 Labs Labs Laboratory Tests 08/23/21 06:33 Exam Vital Signs Vital Signs Date Time Temp Pulse Resp B/P (MAP) Pulse Ox O2 Delivery O2 Flow Rate FiO2 08/23/21 08:00 Room Air 08/23/21 07:39 37.0 83 18 108/69 98 08/20/21 17:00 2.00 Physical Exam General: Alert. No acute distress. She is morbidly obese. Eye: No xanthelasma. HENT: Normocephalic. Neck: Jugular venous pressure does not appear elevated. Respiratory: Lungs are clear to auscultation. Respirations are non-labored. Breath sounds are equal. Symmetrical chest wall expansion. Cardiovascular: Normal rate. Regular rhythm. Distant S1/S2. No murmur. No gallop. 1+ bilateral pretibial edema. There is ecchymoses around the right knee. Gastrointestinal: Soft. Normal bowel sounds. Skin: Warm. Dry. Neurologic: Alert and oriented to person, place, time. Cranial nerves 3-11 grossly intact. Psychiatric: Cooperative. Appropriate mood & affect. Labs Laboratory Tests Test 08/22/21 11:09 08/22/21 12:00 08/22/21 15:25 08/22/21 20:36 Range/Units Glucometer 63 L 68 L 85 114 H 70-110 MG/DL Test 08/23/21 05:01 08/23/21 06:33 Range/Units Glucometer 100 70-110 MG/DL White Blood Count 9.2 4.3-11.0 10^3/uL Red Blood Count 2.68 L 3.80-5.11 10^6/uL Hemoglobin 8.2 L 11.5-16.0 g/dL Hematocrit 25 L 35-52 % Mean Corpuscular Volume 92 80-99 fL Mean Corpuscular Hemoglobin 31 25-34 pg Mean Corpuscular Hemoglobin Concent 33 32-36 g/dL Red Cell Distribution Width 14.1 10.0-14.5 % Platelet Count 392 130-400 10^3/uL Mean Platelet Volume 9.1 9.0-12.2 fL Immature Granulocyte % (Auto) 4 % Neutrophils (%) (Auto) 63 42-75 % Lymphocytes (%) (Auto) 22 12-44 % Monocytes (%) (Auto) 8 0-12 % Eosinophils (%) (Auto) 4 0-10 % Basophils (%) (Auto) 1 0-10 % Neutrophils # (Auto) 5.8 1.8-7.8 10^3/uL Lymphocytes # (Auto) 2.0 1.0-4.0 10^3/uL Monocytes # (Auto) 0.7 0.0-1.0 10^3/uL Eosinophils # (Auto) 0.3 0.0-0.3 10^3/uL Basophils # (Auto) 0.1 0.0-0.1 10^3/uL Immature Granulocyte # (Auto) 0.3 H 0.0-0.1 10^3/uL Sodium Level 139 135-145 MMOL/L Potassium Level 4.2 3.6-5.0 MMOL/L Chloride Level 103 98-107 MMOL/L Carbon Dioxide Level 26 21-32 MMOL/L Anion Gap 10 5-14 MMOL/L Blood Urea Nitrogen 15 7-18 MG/DL Creatinine 0.71 0.60-1.30 MG/DL Estimat Glomerular Filtration Rate 91 BUN/Creatinine Ratio 21 Glucose Level 100 70-105 MG/DL Calcium Level 8.4 L 8.5-10.1 MG/DL Corrected Calcium 9.6 8.5-10.1 MG/DL Magnesium Level 1.7 1.6-2.4 MG/DL Total Bilirubin 0.8 0.1-1.0 MG/DL Aspartate Amino Transf (AST/SGOT) 12 5-34 U/L Alanine Aminotransferase (ALT/SGPT) 18 0-55 U/L Alkaline Phosphatase 82 40-136 U/L Total Protein 5.0 L 6.4-8.2 GM/DL Albumin 2.5 L 3.2-4.5 GM/DL Diagnosis/Problems Diagnosis/Problems (1) Orthostatic hypotension Status: Chronic Assessment & Plan: She tells me she has a long history of orthostatic hypotension but despite this, takes antihypertensive medication at home. Her blood pressure is normal on no antihypertensive medication. I recommend we continue to hold her outpatient blood pressure medications. We may actually need to start her on midodrine if her low blood pressures persist. (2) Primary hypertension Status: Chronic Assessment & Plan: Her blood pressures have improved somewhat but are still in a controlled range. All of her antihypertensive medication is on hold. As above, we may need to start her on midodrine. Her blood pressures will need to be followed closely after discharge. (3) Mixed hyperlipidemia Status: Chronic Assessment & Plan: Continue atorvastatin. (4) Lower extremity edema Assessment & Plan: She has chronic peripheral edema which I suspect is related to her morbid obesity with chronic venous stasis. I recommend she start taking furosemide 40 mg daily for the next couple of weeks. She had been taking this as needed prior to admission. (5) Shock Assessment & Plan: Her shock has now resolved. (6) Morbid obesity Status: Chronic Assessment & Plan: She needs to work on weight loss. MATIAS SMITH JR, MD Aug 23, 2021 08:28
[2021-08-23] MEDS ORDERED: FUROSEMIDE 40 MG (LASIX) TAB PO SCH (09:00)
--- NOTE | 2021-08-23 09:32 | Physical Therapy Daily Note ---
PT Daily Note-Current Subjective Patient agrees to PT. Pain Numeric Pain Scale: 5-Moderate Pain Location: Right Location Body Site: Knee Pain Description: Acute Mental Status Patient Orientation: Normal For Age Transfers SCALE: Activities may be completed with or without assistive devices. 1-Wwxusezwsp-zssxpsi completes the activity by him/herself with no assistance from a helper. 5-Set-up or Clean-up Assistance-helper sets up or cleans up; patient completes activity. [place] assists only prior to or following the activity. 4-Supervision or Touching Assistance-helper provides verbal cues and/or touching/steadying and/or contact guard assistance as patient completes activity. Assistance may be provided throughout the activity or intermittently. 3-Partial/Moderate Assistance-helper does LESS THAN HALF the effort. [place] lifts, holds or supports trunk or limbs, but provides less than half the effort. 2-Substantial/Maximal Assistance-helper does MORE THAN HALF the effort. [place] lifts or holds trunk or limbs and provides more than half the effort. 0-Qiyhxegid-bfhemq does ALL the effort. Patient does none of the effort to complete the activity. Or, the assistance of 2 or more helpers is required for the patient to complete the activity. If activity was not attempted, code reason: 7-Patient Refused. 9-Not Applicable-not attempted and the patient did not perform the activity before the current illness, exacerbation or injury. 10-Not Attempted due to Environmental Limitations-(lack of equipment, weather restraints, etc.). 88-Not Attempted due to Medical Conditions or Safety Concerns. Sit to Stand (QC): 4 Chair/Iwn-gz-Roess Xfer(QC): 4 Toilet Transfer (QC): 4 Gait Training Distance: 200' Walk 10 feet (QC): 4 Walk 50 ft with 2 Turns(QC): 4 Walk 150 ft (QC): 4 Gait Assistive Device: FWW slow, antalgic Exercises Seated Therapy Exercises: Ankle pumps, Long arc quads Seated Reps: 15 Assessment Patient requires time to complete all functional tasks. Very slow to complete. Plan dismissal to [place] on this date per report. PT Chief Quality Officer Goals Prison Goals PT Prison Goals Time Frame: Aug 31, 2021 Roll Left & Right (QC): 4 Sit to Lying (QC): 4 Lying-Sitting on Side/Bed(QC): 4 Sit to Stand (QC): 4 Chair/Npt-ij-Beuxt Xfer(QC): 4 Toilet Transfer (QC): 4 Walk 10 feet (QC): 4 Walk 50ft with 2 Turns (QC): 4 Walk 150 ft (QC): 4 PT Plan Treatment/Plan Treatment Plan: Continue Plan of Care Treatment Plan: Bed Mobility, Education, Functional Activity Ladan, Functional Strength, Gait, Safety, Therapeutic Exercise, Transfers Treatment Duration: Aug 31, 2021 Frequency: 11 times per week Estimated Hrs Per Day: .5 hour per day Time/GCodes Time In: 845 Time Out: 908 Total Billed Treatment Time: 23 Total Billed Treatment 1 visit GT 15 min EX 8 min ANGELINA MARTINEZ PT Aug 23, 2021 09:32
[2021-08-23] MEDS ORDERED: GABA300C PO (11:09)
[2021-08-23] MEDS ORDERED: POTA10TA37 PO (11:09)
[2021-08-23] MEDS ORDERED: OXYC5TAB PO ×2 (11:09→11:17)
[2021-08-23] MEDS ORDERED: SNN187T PO (11:09)
[2021-08-23] MEDS ORDERED: NITR-65 PO (11:09)
[2021-08-23] MEDS ORDERED: TRAM50TA3 PO ×2 (11:09→11:17)
[2021-08-23] MEDS ORDERED: ROPI1TAB PO ×2 (11:09)
[2021-08-23] MEDS ORDERED: ATOR20TA66 PO (11:09)
[2021-08-23] MEDS ORDERED: FURO40TA4 PO (11:09)
[2021-08-23] MEDS ORDERED: DULO60CA7 PO (11:09)
[2021-08-23] MEDS ORDERED: CYCL10TA25 PO (11:09)
[2021-08-23] MEDS ORDERED: LEVO150T6 PO (11:09)
[2021-08-23] MEDS ORDERED: RT-ALBUINH IH (11:09)
--- NOTE | 2021-08-23 11:11 | Discharge Summary ---
Discharge Summary Hospital Course Was the Problem List Reviewed?: Yes Problems/Dx: (1) Orthostatic hypotension Status: Chronic (2) Primary hypertension Status: Chronic (3) Mixed hyperlipidemia Status: Chronic (4) Lower extremity edema (5) Shock (6) Morbid obesity Status: Chronic Hospital Course Date of Admission: Aug 19, 2021 at 13:25 Admission Diagnosis : Family Physician/Provider: Ken Blanc MD Date of Discharge: 08/23/21 Discharge Diagnosis: Hypovolemic shock, ESBL UTI, debility, recent right knee replacement morbid obesity, fibromyalgia, chronic pain Hospital Course: Brief Hospital Course: Patient was admitted on 08/19/21 and discharged 08/23/21. The patient presented to the ED in [place] on 08/19/21 with a CC of right leg pain after a fall. Knee Xray on 08/19/21 showed no evidence of fracture. Patient was admitted from the ED to the ICU for hypovolemic shock. In the ICU she received Levophed, and IVF for her hypotension. She also received hydrocortisone, which was d/c after her cortisone was normal. The patient was status post R knee replacement on 08/12/[address] [facility] in [place] by Dr. Kebede. She had anemia throughout her hospital stay with a Hgb of 7.0 on 08/20/21, and received 2 units of leukocyte reduced RBCs during her hospital course. Orthopedics and surgery were consulted who ruled out compartment syndrome in the PT's right leg. Cardiology was consulted who ruled out cardiovascular causes of her hypotension. The patient's blood pressures stabilized to normal levels, and she was transferred to the 4th floor on 08/21/21. Throughout her hospital stay she was also being treated for a UTI with IV antibiotic therapy, and will be discharged on Macrobid for the UTI. She will be discharged to [facility] for further recovery after her fall. This summary does not include the entirety of the patient's visit and is only a short description of pertinent lab values and information. For the complete hospital course, please refer to the patient's chart. Date of Admission: 08/19/21 Date of Discharge: 08/23/21 Attending Physician: Dr. Estela Fernandez DO Admission Diagnosis: Hypovolemic shock Discharge Diagnosis: Debility status post fall Labs and Pending Lab Test: Laboratory Tests 08/22/21 12:00: Glucometer 68L 08/22/21 15:25: Glucometer 85 08/22/21 20:36: Glucometer 114H 08/23/21 05:01: Glucometer 100 08/23/21 06:33: White Blood Count 9.2, Red Blood Count 2.68L, Hemoglobin 8.2L, Hematocrit 25L, Mean Corpuscular Volume 92, Mean Corpuscular Hemoglobin 31, Mean Corpuscular Hemoglobin Concent 33, Red Cell Distribution Width 14.1, Platelet Count 392, Mean Platelet Volume 9.1, Immature Granulocyte % (Auto) 4, Neutrophils (%) (Auto) 63, Lymphocytes (%) (Auto) 22, Monocytes (%) (Auto) 8, Eosinophils (%) (Auto) 4, Basophils (%) (Auto) 1, Neutrophils # (Auto) 5.8, Lymphocytes # (Auto) 2.0, Monocytes # (Auto) 0.7, Eosinophils # (Auto) 0.3, Basophils # (Auto) 0.1, Immature Granulocyte # (Auto) 0.3H, Sodium Level 139, Potassium Level 4.2, Chl oride Level 103, Carbon Dioxide Level 26, Anion Gap 10, Blood Urea Nitrogen 15, Creatinine 0.71, Estimat Glomerular Filtration Rate 91, BUN/Creatinine Ratio 21, Glucose Level 100, Calcium Level 8.4L, Corrected Calcium 9.6, Magnesium Level 1.7, Total Bilirubin 0.8, Aspartate Amino Transf (AST/SGOT) 12, Alanine Aminotransferase (ALT/SGPT) 18, Alkaline Phosphatase 82, Total Protein 5.0L, Albumin 2.5L Microbiology 08/19/21 MRSA Screen - Final, Complete MRSA not isolated 08/19/21 Blood Culture - Preliminary, Resulted No growth 08/19/21 Urine Culture - Final, Complete Escherichia coli Home Meds Active Senna Lax (Sennosides) 8.6 Mg Tablet 8.6 Mg PO BID Macrobid 100 mg Capsule (Nitrofurantoin Monohyd/M-Cryst) 100 Mg Capsule 1 Tab PO BID Ropinirole HCl 1 Mg Tablet 2 Mg PO HS TAKES 2 (1MG) TABS Ropinirole HCl 1 Mg Tablet 1 Mg PO DAILY Levothyroxine Sodium 150 Mcg Tablet 150 Mcg PO DAILY Potassium Chloride 10 Meq Tab.er.prt 10 Meq PO BID PRN Atorvastatin Calcium 20 Mg Tablet 20 Mg PO DAILY Furosemide 40 Mg Tablet 40 Mg PO DAILY PRN Neurontin (Gabapentin) 300 Mg Capsule 300 Mg PO DAILY Cyclobenzaprine HCl 10 Mg Tablet 10 Mg PO TID PRN Proventil Hfa (Albuterol Sulfate) 6.7 Gm Hfa.aer.ad 2 Puff IH Q4H PRN Cymbalta (Duloxetine HCl) 60 Mg Capsule. 60 Mg PO BID Reported Ibuprofen 200 Mg Tablet 800 Mg PO Q8H PRN Hydrocodone-Acetamin 5-325 mg (Hydrocodone/Acetaminophen) 5 Mg-325 Mg Tablet 1 Tab PO Q6H PRN Lisinopril 5 Mg Tablet 5 Mg PO DAILY Assessment/Pt Instructions PCP Per [facility] rounds Discharge Planning: <30 minutes discharge planning Discharge Instructions Discharge Diet: Eat Small Frequent Meals Activity as Tolerated: Yes Discharge Physical Examination Vital Signs Vital Signs Date Time Temp Pulse Resp B/P (MAP) Pulse Ox O2 Delivery O2 Flow Rate FiO2 08/23/21 08:00 Room Air 08/23/21 07:39 37.0 83 18 108/69 98 08/20/21 17:00 2.00 General Appearance: No Apparent Distress, WD/WN, Chronically ill Allergies: Coded Allergies: Tetracyclines (Verified Allergy, Unknown, high doses cause stomach pain, 04/16/16) pregabalin (Verified Allergy, Unknown, 04/16/16) Discharge Summary Date of Admission Aug 19, 2021 at 13:25 Date of Discharge Discharge Date: Aug 23, 2021 Admission Diagnosis Assessment: Hypovolemic shock Recent right total knee replacement by Dr. Kebede at [place] on 08/12/2021 and discharged 08/15/2021 Elevated D-dimer but no hypoxia and bilateral lower extremity ultrasounds negative for DVT UTI without signs of sepsis Anemia postop acute blood loss Fibromyalgia Chronic pain History of hypertension took blood pressure medications today Plan: Aggressive IV fluid resuscitation Levophed Monitor for compartment syndrome right leg We will reach out to Dr. Kebede tomorrow Appreciate Dr. Montoya Appreciate Dr. Moore Discharge Diagnosis supportive care (1) Orthostatic hypotension Status: Chronic Assessment & Plan: She tells me she has a long history of orthostatic hypotension but despite this, takes antihypertensive medication at home. Her blood pressure is normal on no antihypertensive medication. I recommend we continue to hold her outpatient blood pressure medications. We may actually need to start her on midodrine if her low blood pressures persist. (2) Primary hypertension Status: Chronic Assessment & Plan: Her blood pressures have improved somewhat but are still in a controlled range. All of her antihypertensive medication is on hold. As above, we may need to start her on midodrine. Her blood pressures will need to be followed closely after discharge. (3) Mixed hyperlipidemia Status: Chronic Assessment & Plan: Continue atorvastatin. (4) Lower extremity edema Assessment & Plan: She has chronic peripheral edema which I suspect is related to her morbid obesity with chronic venous stasis. I recommend she start taking furosemide 40 mg daily for the next couple of weeks. She had been taking this as needed prior to admission. (5) Shock Assessment & Plan: Her shock has now resolved. (6) Morbid obesity Status: Chronic Assessment & Plan: She needs to work on weight loss. ESTELA FERNANDEZ DO Aug 23, 2021 11:11
--- NOTE | 2021-08-23 11:11 | Discharge Inst-Skilled Nursing ---
Discharge Inst-Skilled NF Reconcile Patient Problems Problems Reviewed?: Yes Chief Complaint Chief complaint: Fall with right leg pain History of present illness: This is a 71-year-old white female patient of [facility] who is status post right knee replacement by Dr. Kebede at [facility] on 08/12/2021 and discharged 08/15/2021 who presented to the ER after a fall with right leg pain. Patient was lethargic after given pain medication so no history obtainable. She was assessed to be hypotensive requiring central line placement and aggressive IV fluid resuscitation along with pressor therapy. White count was 18,000 but no evidence of sepsis as source of hypotension. UTI noted which was mild so cefepime was placed. Hemoglobin was 9 we will monitor closely. Patient Instructions Patient Problems: Debility Consult/Follow Up/Orders Follow Up Appt.: PCP [place] rounds Skilled NF Admit to: [facility] Certification ([facility]) I certify that [facility] services are required to be given on an inpatient basis because of the above named patient's need for halfway care on a continuing basis for the conditions(s) for which he/she was receiving inpatient hospital services prior to his/her transfer to the [facility]. [facility] Facility Order: Nursing Services, Fact Checker-Evaluate & Treat, Physical Therapy-Evaluate & Treat Oxygen Delivery Method: Room Air Discharge Diet: Eat Small Frequent Meals Daily Activity as Tolerated: Yes Resuscitation Status: Full Code New & Resume Previous Orders New Medications: Nitrofurantoin Monohyd/M-Cryst (Macrobid 100 mg Capsule) 100 Mg Capsule 1 TAB PO BID, #10 CAP Continued Medications: Albuterol Sulfate (Proventil Hfa) 6.7 Gm Hfa.aer.ad 2 PUFF IH Q4H PRN for SHORTNESS OF BREATH, #1 GM (This prescription has been renewed) Atorvastatin Calcium (Atorvastatin Calcium) 20 Mg Tablet 20 MG PO DAILY, #30 TAB (This prescription has been renewed) Cyclobenzaprine HCl (Cyclobenzaprine HCl) 10 Mg Tablet 10 MG PO TID PRN for MUSCLE SPASMS, #30 TAB (This prescription has been renewed) Duloxetine HCl (Cymbalta) 60 Mg Capsule.dr 60 MG PO BID, #60 CAP (This prescription has been renewed) Furosemide (Furosemide) 40 Mg Tablet 40 MG PO DAILY PRN for FLUID RETENTION, #30 TAB (This prescription has been renewed) Gabapentin (Neurontin) 300 Mg Capsule 300 MG PO DAILY, #30 CAP (This prescription has been renewed) Levothyroxine Sodium (Levothyroxine Sodium) 150 Mcg Tablet 150 MCG PO DAILY, #30 TAB (This prescription has been renewed) Oxycodone HCl (Oxycodone HCl) 5 Mg Tablet 5-10 MG PO Q6H PRN for PAIN-SEVERE (8-10), #30 TAB (This prescription has been renewed) TAKES 1 TO 2 (5MG) TABS Potassium Chloride (Potassium Chloride) 10 Meq Tab.er.prt 10 MEQ PO BID PRN for WHEN TAKING A FUROSEMIDE DOSE, #30 TAB (This prescription has been renewed) Ropinirole HCl (Ropinirole HCl) 1 Mg Tablet 1 MG PO DAILY, #30 TAB (This prescription has been renewed) Ropinirole HCl (Ropinirole HCl) 1 Mg Tablet 2 MG PO HS, #30 TAB (This prescription has been renewed) TAKES 2 (1MG) TABS Tramadol HCl (Tramadol HCl) 50 Mg Tablet 50-100 MG PO Q6H PRN for PAIN-MODERATE (5-7), #30 TAB (This prescription has been renewed) Discontinued Medications: Hydrocodone/Acetaminophen (Hydrocodone-Acetamin 5-325 mg) 5 Mg-325 Mg Tablet 1 TAB PO Q6H PRN for PAIN-MODERATE (5-7), TAB Ibuprofen (Ibuprofen) 200 Mg Tablet 800 MG PO Q8H PRN for PAIN-MILD (1-4), TAB Lisinopril (Lisinopril) 5 Mg Tablet 5 MG PO DAILY, TAB Estela Ely Aug 23, 2021 11:10 ESTELA ELY DO Aug 23, 2021 11:11
[2021-08-23] MEDS ORDERED: OXC5T PO ×2 (11:20→11:26)
[2021-08-23] MEDS ORDERED: TRAM-42 PO ×2 (11:20→11:26)
[2021-08-23 11:30] VITALS: BP 102/57
--- NOTE | 2021-08-23 11:55 | Progress Note ---
TAWNY THURSTON 08/23/21 1155: Progress Note Brief Hospital Course: Patient was admitted on 08/19/21 and discharged 08/23/21. The patient presented to the ED in [place] on 08/19/21 with a CC of right leg pain after a fall. Knee Xray on 08/19/21 showed no evidence of fracture. Patient was admitted from the ED to the ICU for hypovolemic shock. In the ICU she received Levophed, and IVF for her hypotension. She also received hydrocortisone, which was d/c after her cortisone was normal. The patient was status post R knee replacement on 08/12/21 at [facility] in [place] by Dr. Kebede. She had anemia throughout her hospital stay with a Hgb of 7.0 on 08/20/21, and received 2 units of leukocyte reduced RBCs during her hospital course. Orthopedics and surgery were consulted who ruled out compartment syndrome in the PT's right leg. Cardiology was consulted who ruled out cardiovascular causes of her hypotension. The patient's blood pressures stabilized to normal levels, and she was transferred to the 4th floor on 08/21/21. Throughout her hospital stay she was also being treated for a UTI with IV antibiotic therapy, and will be discharged on Macrobid for the UTI. She will be discharged to [facility] for further recovery after her fall. This summary does not include the entirety of the patient's visit and is only a short description of pertinent lab values and information. For the complete hospital course, please refer to the patient's chart. Date of Admission: 08/19/21 Date of Discharge: 08/23/21 Attending Physician: Dr. Estela Ely DO Admission Diagnosis: Hypovolemic shock Discharge Diagnosis: Debility status post fall ESTELA ELY DO 08/23/212040: Supervisory-Addendum Brief Verification & Attestation Participated in pt care: history, MDM, physical Personally performed: exam, history, MDM, supervision of care Care discussed with: Medical Student Procedures: n/a Results interpretation: Verified all documentation Verification and Attestation of Medical Student E/M Service A medical student performed and documented this service in my presence. I reviewed and verified all information documented by the medical student and made modifications to such information, when appropriate. I personally performed the physical exam and medical decision making. Estela Ely, Aug 23, 2021,20:41 TAWNY THURSTON Aug 23, 2021 11:55 ESTELA ELY DO Aug 23, 2021 20:41
--- NOTE | 2021-08-23 12:09 | Occupational Ther Daily Note ---
OT Current Status-Daily Note Subjective Pt in recliner, call light going off, pt requests to use bathroom. ADL-Treatment Therapy Code Descriptions/Definitions Functional [place] Measure: 0=Not Assessed/NA 4=Minimal Assistance 1=Total Assistance 5=Supervision or Setup 2=Maximal Assistance 6=Modified [place] 3=Moderate Assistance 7=Complete IndependenceSCALE: Activities may be completed with or without assistive devices. 9-Qheaogrbrc-xcicnda completes the activity by him/herself with no assistance from a helper. 5-Set-up or Clean-up Assistance-helper sets up or cleans up; patient completes activity. [place] assists only prior to or following the activity. 4-Supervision or Touching Assistance-helper provides verbal cues and/or to uching/steadying and/or contact guard assistance as patient completes activity. Assistance may be provided throughout the activity or intermittently. 3-Partial/Moderate Assistance-helper does LESS THAN HALF the effort. [place] lifts, holds or supports trunk or limbs, but provides less than half the effort. 2-Substantial/Maximal Assistance-helper does MORE THAN HALF the effort. [place] lifts or holds trunk or limbs and provides more than half the effort. 7-Csbfwonkx-dnhhzp does ALL the effort. Patient does none of the effort to complete the activity. Or, the assistance of 2 or more helpers is required for the patient to complete the activity. If activity was not attempted, code reason: 7-Patient Refused. 9-Not Applicable-not attempted and the patient did not perform the activity before the current illness, exacerbation or injury. 10-Not Attempted due to Environmental Limitations-(lack of equipment, weather restraints, etc.). 88-Not Attempted due to Medical Conditions or Safety Concerns. Lower Body Dressing (QC): 2 (Max A with tab style brief.) Toileting Hygiene (QC): 3 (Assist with hygiene after BM for thoroughness) Toilet Transfer (QC): 4 (SBA) Other Treatment Pt in recliner, used FWW to go into bathroom and onto toilet, SBA. Pt completed toileting, assist with hygiene after bowel movement. Pt donned clean tab style brief after slight incontinence, max A due to style of brief. Pt then returned to recliner, SBA. Post tx, pt in recliner, call light in reach and all needs met. Education OT Patient Education: Correct positioning, Energy conservation, Modified ADL techniques, Progress toward Goal/Update tx plan, Purpose of tx/functional activities, Rehab process Teaching Recipient: Patient Teaching Methods: Discussion Response to Teaching: Verbalize Understanding OT Skilled Nursing Goals [place] [facility] Goals Time Frame: September 06, 2021 Oral Hygiene (QC): 5 Toileting Hygiene (QC): 4 Shower/Bathe Self (QC): 3 Upper Body Dressing (QC): 5 Lower Body Dressing (QC): 4 On/Off Footwear (QC): 3 1=Demonstrate adherence to instructed precautions during ADL tasks. 2=Patient will verbalize/demonstrate understanding of assistive devices/modifications for ADL. 3=Patient will improve strength/tolerance for activity to enable patient to perform ADL's. OT Education/Plan Problem List/Assessment Assessment: Decreased Activ Tolerance, Decreased UE Strength, Impaired Funct Balance, Impaired I ADL's, Impaired Self-Care Skills Discharge Recommendations Plan/Recommendations: Continue POC Treatment Plan/Plan of Care Patient would benefit from OT for education, treatment and training to promote independence in ADL's, mobility, safety and/or upper extremity function for ADL's. Plan of Care: ADL Retraining, Functional Mobility, Group Exercise/Act as Ind, UE Funct Exercise/Act Treatment Duration: September 06, 2021 Frequency: 3 times per week (3-5x/week) Estimated Hrs Per Day: .25 hour per day Rehab Potential: Guarded Time/GCodes Start Time: 11:13 Stop Time: 11:24 Total Time Billed (hr/min): 11 Billed Treatment Time 1, ADL MARLIN MANZO OT Aug 23, 2021 12:09
[2021-08-23 15:40] VITALS: BP 102/57
== END 2021-08-23 15:40 | DRG 312 ==
LOC: EDUNIT# 10:31 → ER 10:32 → ICU 13:25 → 4TH 08-21 15:06
PROVIDERS: ADMIT Internal Medicine; ATTEND Internal Medicine
PROC: 02HV33Z Insertion of Infusion Device into Superior Vena Cava, Percutaneous Approach (ICD-10-PCS; principal; 2021-08-19)
DX: I95.1 Orthostatic hypotension (principal); R57.1 Hypovolemic shock; D62 Acute posthemorrhagic anemia; N39.0 Urinary tract infection, site not specified; Z16.12 Extended spectrum beta lactamase (ESBL) resistance; E87.1 Hypo-osmolality and hyponatremia; Z68.42 Body mass index [BMI] 45.0-49.9, adult; B96.20 Unspecified Escherichia coli [E. coli] as the cause of diseases classified elsewhere; M79.7 Fibromyalgia; G25.81 Restless legs syndrome; I10 Essential (primary) hypertension; J45.909 Unspecified asthma, uncomplicated; G89.29 Other chronic pain; E66.01 Morbid (severe) obesity due to excess calories; E78.2 Mixed hyperlipidemia; F41.9 Anxiety disorder, unspecified; Z88.1 Allergy status to other antibiotic agents; Z88.6 Allergy status to analgesic agent; Z96.651 Presence of right artificial knee joint; W19.XXXA Unspecified fall, initial encounter
CPT/HCPCS: 36415; 51702; 71045; 73562; 73610; 80048; 80053; 81000; 82533; 82607; 82805; 82947; 83540; 83605; 83735; 84100; 84145; 84484; 85007; 85014; 85018; 85025; 85027; 85379; 85610; 86850; 86900; 86901; 86920; 87040; 87077; 87081; 87088; 87186; 93005; 93306; 93970; 94760

== ENCOUNTER 2021-09-27 12:39 | Outpatient (RCR) | payer MEDICARE ==
[~2021-09-27 12:39] MED LIST changes: +ACHD5005 PO; +ATOR20TA66 PO; +CYCL10TA25 PO; +FURO40TA4 PO; +GABA300C PO; +IBUP-2473 PO; +LEVO150T6 PO; +LISI5TAB20 PO; +NITR-65 PO; +OXC5T PO; +OXYC5TAB PO; +POTA10TA37 PO; +SNN187T PO; +TRAM-42 PO; +TRAM50TA3 PO
== END 2021-10-01 | disposition home or self-care (01) ==
PROVIDERS: ATTEND Internal Medicine
DX: Z47.1 Aftercare following joint replacement surgery (principal); Z96.651 Presence of right artificial knee joint; I10 Essential (primary) hypertension; Z90.89 Acquired absence of other organs; Z90.710 Acquired absence of both cervix and uterus

== ENCOUNTER 2021-10-29 11:34 | Outpatient (RCR) | payer MEDICARE | END 2021-10-31 09:34 | disposition home or self-care (01) | PROVIDERS: ATTEND Internal Medicine | DX: Z47.1 Aftercare following joint replacement surgery (principal); I10 Essential (primary) hypertension; Z96.651 Presence of right artificial knee joint; Z90.89 Acquired absence of other organs; Z90.710 Acquired absence of both cervix and uterus ==